=== PATIENT | female | born 1985 | race Caucasian/White ===

== ENCOUNTER 2019-12-05 09:05 | Observation (INO) | payer OTHER, SELFPAY ==
[2019-12-05] MEDS ORDERED: Morphine 4 MG/ML VIAL ONE ×2 (09:33→11:09)
[2019-12-05] MEDS ORDERED: Labetalol HCl 100 MG/20 ML VIAL ONE (09:33)
[2019-12-05] MEDS ORDERED: Ondansetron PF 4 MG/2 ML Vial ONE (09:33)
[2019-12-05 09:50] LABS: #Eosinphils 0.1 thou/uL (0.0-0.7); #Lymphocytes 1.7 thou/uL (1.20-3.40); #Monocytes 0.5 thou/uL (0.11-0.59); #Neutrophils 5.4 thou/uL (1.40-6.50); %Basophils 0.4 % (0.0-1.0); %Eosinophils 0.8 % (0.0-10.0); %Lymphocytes 22.3 % (21.0-51.0); %Monocytes 6.9 % (0.0-10.0); %Neutrophils 69.5 % (42.0-75.0); Hemoglobin 16.9 g/dL (12.0-16.0); Mean Corpuscular HGB CONC 33.4 g/dL (32.0-36.0); Mean Corpuscular Volume 89.9 fL (78.0-98.0); Platelet Count 170 thou/uL (130-400); RBC Distribution Width 13.2 % (11.5-14.5); Red Blood Cell (RBC) Count 5.62 mill/uL (4.20-5.40); White Blood Cell (WBC) Count 7.7 thou/uL (4.8-10.8)
[2019-12-05 10:07] LABS: ALT (SGPT) 23 U/L (8-55); AST (SGOT) 17 U/L (5-34); Albumin 4.2 g/dL (3.5-5.0); Alkaline Phosphatase 77 U/L (40-110); Anion Gap 13 mmol/L (10-20); BUN (Urea Nitrogen) 21 mg/dL (7.0-18.7); Bilirubin, Total 0.5 mg/dL (0.2-1.2); Calc. Creatinine Clearance 0 mL/min (70-130); Calcium 9.4 mg/dL (7.8-10.44); Carbon Dioxide 26 mmol/L (22-29); Chloride 99 mmol/L (98-107); Estimated GFR-MDRD 41; Globulin 3.9 g/dL (2.4-3.5); Glucose 144 mg/dL (70-105); Lipase 21 U/L (8-78); Protein, Total 8.1 g/dL (6.0-8.3); Sodium 135 mmol/L (136-145)
--- NOTE | 2019-12-05 10:12 | RAD ---
PORTABLE CHEST: Date: 12/05/2019 HISTORY: Epigastric pain. FINDINGS: Lung franco are clear. No infiltrate. Heart and mediastinum appear normal. IMPRESSION: No acute findings. POS: OFF
[2019-12-05 10:28] LABS: CKMB 1.8 ng/mL (0-6.6)
[2019-12-05 10:47] LABS: BHCG - Serum Negative (NEGATIVE); Pregs Control Background? CLEAR/WHITE (CLR/WHITE); Pregs Control Bar Appear? YES (CONTROL BAR)
[2019-12-05] MEDS ORDERED: Aspirin Chewable 81 MG TAB ONE (10:50)
--- NOTE | 2019-12-05 10:54 | CT ---
CT ABDOMEN AND PELVIS WITH IV CONTRAST 12/05/2019 CLINICAL INFORMATION: Upper abdominal pain. Pain is worse in the epigastric region left upper quadrant. COMPARISON: None. Technique: Multiple contiguous axial CT images are obtained through the abdomen and pelvis with IV contrast. Cor onal reformatted images are provided. FINDINGS: Lower Chest: Dependent bibasilar atelectasis. Vessels: Minimal eccentric atherosclerotic plaque is seen in the abdominal aorta with minimal vascula r calcifications in the infrarenal abdominal aorta. Abdominal aorta is normal in caliber. Abdomen: Portal vein:Patent Gallbladder: Within normal limits for CT imaging. Liver: within normal limits. Spleen: within normal limits. Pancreas: within normal limits. Adrenals: within normal limits. Kidneys: There is scarring associated with the kidneys bilaterally. A nonobstructing approximately 5 mm calculus is seen in the inferior pole right kidney with a nonobstructing 4 mm calculus in the superior pole left kidney. These calculi are adjacent to areas of scarring. Bowel: Evidence of colonic diverticulosis. Loops of small bowel are normal in caliber. Appendix: The appendix is visualized and normal in caliber. Peritoneum: No ascites or free air; no fluid collection. Mesentery and Retroperitoneum: No enlarged lymph nodes are seen by CT size criteria. Nonspecific slig ht increase in very small lymph nodes are seen in the aortocaval region. Abdominal Wall: within normal limits. Pelvis: Reproductive Organs: No pelvic masses. Bladder: within normal limits. Bones: No suspicious lytic or sclerotic osseous lesions. IMPRESSION: 1. No acute findings in the abdomen or pelvis. 2. Multifocal areas of scarring involving each kidney with single nonobstructing calculus in each kid kaci. 2. Colonic diverticulosis.
[2019-12-05 11:48] LABS: Bilirubin Negative (Negative); Blood, Urine Trace (Negative); Clarity Clear (Clear); Glucose, Urine (Dipstick) 70 mg/dL (Negative); Ketone, Urine Negative (Negative); Leukocyte 250 Leu/uL (Negative); Nitrite Negative (Negative); Protein, Urine (Dipstick) 300 mg/dL (Neg-Trace); Specific Gravity, Urine 1.043 (1.002-1.036); Urobilinogen Normal mg/dL (Less than 2); WBC/HPF 21-50 HPF (0-3)
[2019-12-05 11:52] LABS: Bacteria/HPF 1+ HPF (None Seen)
[2019-12-05 12:03] LABS: Magnesium 2.3 mg/dL (1.6-2.6)
[2019-12-05] MEDS ORDERED: Nitroglycerin 0.4 MG TAB (25 Tab Bottle) SL PRN (12:12)
[2019-12-05] MEDS ORDERED: Potassium Phosphate 15 MMOL in Sodium Chloride 0.9% 250 ML 250 ML IVPB SCH (12:15)
[2019-12-05] MEDS ORDERED: Potassium Chloride 20 MEQ TAB ONE (12:18)
[2019-12-05] MEDS ORDERED: cefTRIAXone\\ROCEPHIN 1 GM VIAL ONE (12:18)
[2019-12-05 12:40] LABS: PTT 29.5 sec (22.9-36.1); Prothrombin Time 13.1 sec (12.0-14.7)
[2019-12-05 13:10] LABS: Amphetamine Not Detected (NotDetected); Barbiturates Screen Not Detected (NotDetected); Benzodiazepine Screen Detected (NotDetected); Cocaine Metabolite Screen Not Detected (NotDetected); Medtox Control Line Valid? VALID (VALID); Medtox Reader # READER 1; Methadone Not Detected (NotDetected); Methamphetamine Not Detected (NotDetected); Opiate Screen Detected (NotDetected); Oxycodone Screen Not Detected (NotDetected); Phencyclidine (PCP) Not Detected (NotDetected); THC/Cannabinoid Screen Not Detected (NotDetected); Tricyclic Screen Not Detected (NotDetected)
[2019-12-05] MEDS ORDERED: Ketorolac Tromethamine 30 MG/ML VIAL ONE (13:26)
[2019-12-05] MEDS ORDERED: Ondansetron ODT 4 MG TAB PO PRN (13:40)
--- NOTE | 2019-12-05 14:44 | PDOC.HHP ---
Hospitalist HPI - History of Present Illness abdominal pain History of Present Illness: PCP: Opal Guillaume The patient is a 34-year-old female past medical history significant for hypertension, which she is not compliant with her medications. She presents to the ER today after having abdominal pain for 4 days. She reports that she went to her clinic yesterday and received medication but the pain is worse today. In the beginning she felt she was constipated but now she complains of diarrhea. She has also had vomiting episodes with decreased appetite. Patient also feels that she had a fever as high as 101 at her house, however she never took her temperature. She states that the pain does make her feel short of breath. She has attempted Pepto, Tums, and Rolaids to help relieve the pain. She denies any chest pain, contact with sick persons. She does states she has some back pain in the middle area however this is not new for her and happens on and off. She is an every day smoker. Patient does state that she has significant history of hypertension but that she is not compliant with her home medications. Her states that every time she goes into the hospital she gets admitted due to her blood pressure. She states that she just does not have time in her day to remember to take the medications. ED Course: VITAL SIGNS SunDec 05, 2019 09:07 MANUELITO Davila Taylor BP: 224/158, Pulse: 92, Resp: 18, Temp: 97.8 (Oral), Pain: 8, O2 sat: 99 on (Room Air), Time: 12/05/2019 09:07. VITAL SIGNS SunDec 05, 2019 09:30 MANUELITO Rodriguez Kailey BP: 244/158, MAP: 186, Pulse: 91, Resp: 22, Pain: 8, O2 sat: 99 on (Room Air), Time: 12/05/2019 09:30. VITAL SIGNS SunDec 05, 2019 10:17 MANUELITO Rodriguez Kailey BP: 192/125, Pulse: 70, Resp: 22, Temp: 98.0 (Oral), Pain: 4, O2 sat: 93 on (Room Air), Time: 12/05/2019 10:17. VITAL SIGNS SunDec 05, 2019 09:58 MANUELITO Rodriguez Kailey BP: 192/128, MAP: 149, Pulse: 72, Resp: 23, Pain: 6, O2 sat: 95 on (Room Air), Time: 12/05/2019 09:58. VITAL SIGNS SunDec 05, 2019 10:39 MANUELITO Rodriguez Jacinta BP: 196/134, MAP: 154, Pulse: 72, Resp: 22, Pain: 5, O2 sat: 96 on (Room Air), Time: 12/05/2019 10:39. VITAL SIGNS SunDec 05, 2019 11:00 MANUELITO Rodriguez Jacinta BP: 177/115, Pulse: 62, Pain: 5, Time: 12/05/2019 11:00. VITAL SIGNS SunDec 05, 2019 13:31 MANUELITO Rodriguez Jacinta BP: 131/101, Pulse: 67, Resp: 18, Pain: 8, O2 sat: 98, Time: 12/05/2019 13:31. VITAL SIGNS SunDec 05, 2019 14:20 MANUELITO Rodriguez Jacinta BP: 167/111, MAP: 129, Pulse: 64, Resp: 20, Temp: 98.5 (Oral), Pain: 5, O2 sat: 98 on (Room Air), Time: 12/05/2019 14:20. VITAL SIGNS SunDec 05, 2019 15:01 MANUELITO Rodriguez Jacinta BP: 139/106, MAP: 117, Pulse: 67, Resp: 22, Pain: 5, O2 sat: 98 on (Room Air), Time: 12/05/2019 15:01. Today in the ER the patient had lab work, urinalysis, EKG, abdominal CT, and chest x-ray completed, results are listed below. She was given 1 L normal saline, Zofran 4 mg IV, 2 doses of morphine 4 mg IV, 2 doses of labetalol 20 mg IV, aspirin 324 mg, ceftriaxone 1 g, potassium 40 mEq oral, and Toradol 30 mg IV push. Hospitalist ROS - Review of Systems Gastrointestinal: reports: nausea, vomiting, abdominal pain, diarrhea, constipation All other systems reviewed; all pertinent +/- noted in HPI/Subj - Medication Medications: NKDA Current Medications: Lisinopril 10 mg daily Hospitalist History - Past Medical History Source: patient Cardiac: reports: HTN - Past Surgical History Past Surgical History: reports: - Family History Family History: reports: cardiac disorder, diabetes mellitus - Social History Smoking Status: Current every day smoker Alcohol: reports: None Drugs: reports: none Living Situation: With Family Activity level: independent ambulation - Exam General Appearance: awake alert General - other findings: appears in pain ENT: normocephalic atraumatic Neck: supple, symmetric Heart: RRR, no murmur, no gallops, no rubs, normal peripheral pulses Respiratory: CTAB, no wheezes, no rales, no ronchi, normal chest expansion Gastrointestinal: soft, no palpable masses, tender to palpation, voluntary guarding Extremities: no edema Psychiatric: A&O x 3 Hospitalist Results - Labs Result Diagrams: 12/05/19 09:36 12/05/19 09:36 Lab results: WBC 7.7 thou/uL (4.8-10.8) 12/05/19 09:36 Hgb 16.9 g/dL (12.0-16.0) H 12/05/19 09:36 Hct 50.5 % (36.0-47.0) H 12/05/19 09:36 MCV 89.9 fL (78.0-98.0) 12/05/19 09:36 Plt Count 170 thou/uL (130-400) 12/05/19 09:36 Neutrophils % 69.5 % (42.0-75.0) 12/05/19 09:36 Sodium 135 mmol/L (136-145) L 12/05/19 09:36 Potassium 3.0 mmol/L (3.5-5.1) L 12/05/19 09:36 Chloride 99 mmol/L (98-107) 12/05/19 09:36 Carbon Dioxide 26 mmol/L (22-29) 12/05/19 09:36 BUN 21 mg/dL (7.0-18.7) H 12/05/19 09:36 Creatinine 1.48 mg/dL (0.6-1.1) H 12/05/19 09:36 Glucose 144 mg/dL (70-105) H 12/05/19 09:36 Lactic Acid 1.0 mmol/L (0.5-2.2) 12/05/19 12:24 Calcium 9.4 mg/dL (7.8-10.44) 12/05/19 09:36 Total Bilirubin 0.5 mg/dL (0.2-1.2) 12/05/19 09:36 AST 17 U/L (5-34) 12/05/19 09:36 ALT 23 U/L (8-55) 12/05/19 09:36 Alkaline Phosphatase 77 U/L (40-110) 12/05/19 09:36 CK-MB (CK-2) 1.8 ng/mL (0-6.6) 12/05/19 09:36 Troponin I 0.043 ng/mL (< 0.028) H 12/05/19 12:24 Serum Total Protein 8.1 g/dL (6.0-8.3) 12/05/19 09:36 Albumin 4.2 g/dL (3.5-5.0) 12/05/19 09:36 Lipase 21 U/L (8-78) 12/05/19 09:36 Urine Ketones Negative mg/dL (Negative) 12/05/19 11:00 Urine Blood Trace (Negative) A 12/05/19 11:00 Urine Nitrite Negative (Negative) 12/05/19 11:00 Ur Leukocyte Esterase 250 Mannie/uL (Negative) A 12/05/19 11:00 Urine RBC 4-6 HPF (0-3) A 12/05/19 11:00 Urine WBC 21-50 HPF (0-3) A 12/05/19 11:00 Ur Squamous Epith Cells 11-20 HPF (0-3) A 12/05/19 11:00 Urine Bacteria 1+ HPF (None Seen) A 12/05/19 11:00 - EKG Interpretation EKG: SR 85bpm - Radiology Interpretation CT scan - abdomen Status: report reviewed by me Additional Comment: IMPRESSION: 1. No acute findings in the abdomen or pelvis. 2. Multifocal areas of scarring involving each kidney with single nonobstructing calculus in each kid kaci. 2. Colonic diverticulosis. Chest x-ray Status: report reviewed by me Additional Comment: FINDINGS: Lung franco are clear. No infiltrate. Heart and mediastinum appear normal. IMPRESSION: No acute findings. Hospitalist H&P A/P - Plan Plan: Epigastric pain Bentyl to be started IV PPI ordered scheduled GI consult in place Repeat UA ordered Clear liquid diet Antiemetics as needed available Hypertensive emergency Restart patient on her home medications P.r.n. antihypertensives available Nitro patch scheduled Elevated troponin Patient mid to the telemetry unit to monitor No complaints of chest pain Unknown baseline of troponins, is a possibility that this is her baseline with her chronic kidney disease Chronic kidney disease Recheck labs in a.m. Receiving IV fluids Hypokalemia Replacement ordered We will recheck labs in a.m. CODE STATUS: Full Surrogate decision maker is her Jeremy Patient reviewed and discussed with Dr. Grimm
[2019-12-05] MEDS ORDERED: Iopamidol-370 76% 500 ML 1 ML ONE (15:24)
[2019-12-05 15:56] LABS: Troponin I 0.037 ng/mL (< 0.028)
[2019-12-05 16:36] VITALS: BMI 35.6
[2019-12-05] MEDS: Ondansetron PF 4 MG/2 ML Vial IVP PRN (17:00)
[2019-12-05] MEDS: Dicyclomine 10 MG CAP PO SCH ×2 (17:02→21:06)
[2019-12-05] MEDS: cloNIDine 0.1 MG TAB PO PRN (17:02)
[2019-12-05] MEDS: diphenhydrAMINE 50 MG/ML VIAL IVP PRN ×2 (17:10→21:09)
[2019-12-05] MEDS: Nitroglycerin 2% Ointment 1 INCH/1 GM Packet TOP SCH ×2 (17:23→21:11)
[2019-12-05] MEDS: NS 0.9% w/ 20 MEQ KCL 1,000 ML/1,000 ML BAG IV SCH ×2 (19:00→23:42)
[2019-12-05] MEDS: Pantoprazole 40 MG VIAL IVP SCH (21:06)
[2019-12-05] MEDS: Acetaminophen 325 MG TAB PO PRN (21:06)
--- NOTE | 2019-12-06 00:54 | CON ---
DATE OF CONSULTATION: 12/05/2019 CHIEF COMPLAINT: Abdominal pain. HISTORY OF PRESENT ILLNESS: Ms. White is a 34-year-old woman who presents to the emergency room with left upper quadrant, burning, aching pain that extends over to her epigastric region. This started 4 days ago, but has worsened over the last couple of days and significantly worsens immediately after eating. She has tried Tums, Rolaids and Pepto-Bismol without significant improvement in her symptoms. She has had episodes of nausea and vomiting with this. No hematemesis. She had 2 days of constipation when the symptoms started and then a couple of days of diarrhea with 2 or 3 loose stools per day. No blood in the stool. No melena. Her weight has been stable. No fever. She has had no dysphagia or odynophagia. She does have a history of hypertension, but does not take her medicines regularly for that. She has had headaches associated with her elevated blood pressure and takes ibuprofen intermittently 800 mg at a time, maybe around a couple of times per week. PAST MEDICAL HISTORY: Hypertension. PAST SURGICAL HISTORY: and tubal ligation. FAMILY HISTORY: Positive for possibly stomach cancer in her grandmother. SOCIAL HISTORY: She smokes half pack a day. No alcohol. No drugs. ALLERGIES: NO KNOWN DRUG ALLERGIES. MEDICATIONS: Prior to admission: Lisinopril, which she has not been perfectly compliant with. Here in the hospital, she is on: 1. Pantoprazole IV q.12 hours. 2. Lisinopril. 3. Nitroglycerin ointment. REVIEW OF SYSTEMS: Negative x10 systems reviewed except as stated in the history of present illness. PHYSICAL EXAMINATION: VITAL SIGNS: Temperature 98.5, pulse 77, blood pressure 159/117. GENERAL: She is in no acute distress. Alert and oriented x3. EYES: Have no scleral icterus. Oropharynx is clear without lesions. No cervical or supraclavicular lymphadenopathy. LUNGS: Clear to auscultation bilaterally. HEART: Regular rate and rhythm without murmur. ABDOMEN: Soft. She has mild tenderness in the epigastric to left upper quadrant, but no guarding, and she is nontender throughout the rest of her abdomen. Her bowel sounds are active. EXTREMITIES: No lower extremity edema. NEUROLOGIC: Cranial nerves are grossly intact. LABORATORY DATA: White blood cell count 7.7, hemoglobin 16.9, platelets 170. INR 1.0. Creatinine 1.48, bilirubin 0.5, AST 17, ALT 23, alkaline phosphatase 77, albumin 4.2, lipase 21. COVID test is pending. IMAGING: She did have a CT scan of the abdomen and pelvis this morning, which showed nonobstructing renal calculi and colonic diverticulosis, but otherwise the CT was negative. On my review of her CT scan, she does not have significant retention of stool in her colon. IMPRESSION: Left upper quadrant epigastric abdominal pain. She has occasional non-steroidal anti-inflammatory drugs use a couple times per week 800 mg per dose. She takes this primarily for headaches and has had limited compliance with her antihypertensive medications. RECOMMENDATIONS: 1. Proton pump inhibitor. 2. EGD tomorrow. Job ID: [id number]
[2019-12-06 05:08] LABS: #Basophils 0.1 thou/uL (0.0-0.2); #Eosinphils 0.1 thou/uL (0.0-0.7); #Lymphocytes 3.4 thou/uL (1.20-3.40); #Monocytes 0.8 thou/uL (0.11-0.59); #Neutrophils 6.5 thou/uL (1.40-6.50); %Basophils 0.6 % (0.0-1.0); %Eosinophils 1.3 % (0.0-10.0); %Lymphocytes 31.2 % (21.0-51.0); %Monocytes 7.6 % (0.0-10.0); %Neutrophils 59.3 % (42.0-75.0); Hemoglobin 13.8 g/dL (12.0-16.0); Mean Corpuscular HGB CONC 34.5 g/dL (32.0-36.0); Mean Corpuscular Hemoglobin 31.2 pg (27.0-31.0); Mean Corpuscular Volume 90.4 fL (78.0-98.0); Mean Platelet Volume 9.5 fL (7.4-10.4); Platelet Count 150 thou/uL (130-400); RBC Distribution Width 13.2 % (11.5-14.5); Red Blood Cell (RBC) Count 4.41 mill/uL (4.20-5.40)
[2019-12-06 05:23] LABS: Anion Gap 12 mmol/L (10-20); BUN (Urea Nitrogen) 21 mg/dL (7.0-18.7); Calc. Creatinine Clearance 92 mL/min (70-130); Calcium 8.2 mg/dL (7.8-10.44); Carbon Dioxide 21 mmol/L (22-29); Chloride 105 mmol/L (98-107); Estimated GFR-MDRD 43; Glucose 125 mg/dL (70-105); Potassium 3.3 mmol/L (3.5-5.1); Sodium 135 mmol/L (136-145)
[2019-12-06] MEDS: cloNIDine 0.1 MG TAB PO PRN (05:49)
[2019-12-06] MEDS: Acetaminophen 325 MG TAB PO PRN (05:50)
[2019-12-06] MEDS: Nitroglycerin 2% Ointment 1 INCH/1 GM Packet TOP SCH ×3 (05:50→21:29)
[2019-12-06] MEDS ORDERED: hydrALAZINE 20 MG/ML VIAL SLOW IVP PRN (06:07)
[2019-12-06] MEDS: NS 0.9% w/ 20 MEQ KCL 1,000 ML/1,000 ML BAG IV SCH ×3 (06:17→21:37)
[2019-12-06] MEDS ORDERED: FLU VACC QS2020-21(6MOS UP)/PF 60 MCG/0.5 ML SYRINGE IM ONE (09:00)
[2019-12-06] MEDS ORDERED: Prevnar 13-Val Conj/PF 0.5 ML SYRINGE IM ONE (09:00)
[2019-12-06] MEDS: Lisinopril 20 MG TAB PO SCH (09:14)
[2019-12-06] MEDS: Dicyclomine 10 MG CAP PO SCH ×4 (09:14→21:30)
[2019-12-06] MEDS: Pantoprazole 40 MG VIAL IVP SCH ×2 (09:14→21:37)
[2019-12-06] MEDS ORDERED: Lidocaine 1% PF 5 ML VIAL ONE (09:28)
[2019-12-06] MEDS ORDERED: PROPOFOL 200 MG/20 ML VIAL ONE (09:28)
[2019-12-06] MEDS ORDERED: Morphine 2 MG/ML SYRINGE SLOW IVP PRN (09:53)
[2019-12-06] MEDS: Morphine 2 MG/ML VIAL SLOW IVP PRN ×3 (10:10→21:58)
[2019-12-06 12:02] LABS: SARS-CoV-2 MS2 Positive; SARS-CoV-2 N Gene Negative; SARS-CoV-2 S Gene Negative; SARS-CoV-2 by NAA Not Detected (NotDetected); SARS-CoV-2 orf1ab Negative
[2019-12-06] MEDS ORDERED: Morphine 2 MG/ML VIAL ONE (14:06)
[2019-12-06] MEDS ORDERED: Ondansetron HCl/PF 4 MG/2 ML Vial IVP PRN (14:56)
[2019-12-06] MEDS ORDERED: Promethazine HCl 25 MG/ML VIAL IM PRN (14:56)
[2019-12-06] MEDS ORDERED: Promethazine HCl 25 MG/ML VIAL SLOW IVP PRN (14:56)
[2019-12-06] MEDS ORDERED: Potassium Chloride 20 MEQ TAB PO SCH (18:15)
[2019-12-06] MEDS ORDERED: Electrolyte Replacement Protocol FS PRN (18:30)
[2019-12-06] MEDS ORDERED: Electrolyte Replacement Protoc 1 EACH EACH FS SCH (18:30)
--- NOTE | 2019-12-06 19:28 | OP ---
DATE OF PROCEDURE: 12/06/2019 PROCEDURE PERFORMED: Esophagogastroduodenoscopy with biopsy. PREOPERATIVE DIAGNOSIS: Left upper quadrant epigastric abdominal pain. DESCRIPTION OF PROCEDURE: Informed consent was obtained from the patient. She was sedated with total intravenous anesthesia. The bite block was placed and the endoscope advanced easily to the second portion of the duodenum and retroflexion was performed in the stomach. The esophagus was normal. The GE junction was normal. There is mild erythematous gastritis in the antrum. Biopsies were obtained to rule out Helicobacter pylori. The stomach was otherwise normal, including retroflexed views. The pylorus and first and second and third portions of the duodenum were normal. Duodenal biopsies were taken to rule out celiac disease. IMPRESSION: 1. Mild erythematous antral gastritis. Biopsies were obtained to rule out Helicobacter pylori. 2. Otherwise normal EGD. RECOMMENDATIONS: 1. Await histopathology. 2. Proton pump inhibitor. 3. Dicyclomine. 4. Advance diet. 5. No significant source for abdominal pain is identified by this exam. CT scan of the abdomen and pelvis yesterday was negative. Job ID: [id number]
--- NOTE | 2019-12-06 20:49 | PDOC.HOSPP ---
- Subjective Encounter Date: 12/06/19 Encounter Time: 09:00 Subjective: Patient was seen and examined in bed. She complains of ongoing epigastric pain No chest pain or shortness of breath Telemetry revealed normal sinus rhythm - Objective Vital Signs & Weight: Vital Signs (12 hours) Temp Pulse Resp BP Pulse Ox 12/06/19 15:36 98.6 F 73 20 142/82 H 100 12/06/19 11:33 98.2 F 71 16 147/78 H 99 Weight Weight 228 lb I&O: 12/05/19 12/06/19 12/07/19 06:59 06:59 06:59 Intake Total 1366 1001 Balance 1366 1001 Result Diagrams: 12/06/19 04:47 12/06/19 04:47 EKG Reviewed by me: Yes (Normal sinus rhythm on telemetry) Hospitalist ROS - Medication Medications: Active Medications Generic Name Dose Route Start Last Admin Trade Name Freq PRN Reason Stop Dose Admin Acetaminophen 650 mg 12/05/19 13:40 12/06/19 05:50 Acetaminophen 325 Mg Tab PO 650 mg Q4H PRN Administration Headache/Fever/Mild Pain (1-3) Clonidine 0.1 mg 12/05/19 11:54 12/06/19 05:49 Clonidine 0.1 Mg Tab PO 0.1 mg Q4H PRN Administration SBP Greater Than 180 Dicyclomine HCl 10 mg 12/05/19 17:00 12/06/19 16:21 Dicyclomine 10 Mg Cap PO 10 mg QID ERIC Administration Diphenhydramine HCl 25 mg 12/05/19 13:40 12/05/19 21:09 Diphenhydramine 50 Mg/Ml Vial IVP 25 mg Q4H PRN Administration Itching & Hives (mild) Hydralazine HCl 10 mg 12/06/19 06:07 12/06/19 06:19 Hydralazine 20 Mg/Ml Vial SLOW IVP 10 mg Q4H PRN Administration Hypertension Potassium Chloride/Sodium Chloride 1,000 ml in 1,000 mls @ 125 mls/hr 12/06/19 12:57 12/06/19 15:39 Ns 0.9% W/ 20 Meq Kcl IV 1,000 mls .Q8H ERIC Administration Lisinopril 20 mg 12/06/19 09:00 12/06/19 09:14 Lisinopril 20 Mg Tab PO 20 mg DAILY ERCI Administration Morphine Sulfate 2 mg 12/06/19 09:57 12/06/19 17:57 Morphine 2 Mg/Ml Vial SLOW IVP 2 mg Q4H PRN Administration Pain Nitroglycerin 0.5 inch 12/05/19 12:00 12/06/19 11:22 Nitroglycerin 2% Ointment 1 Inch/1 Gm Packet TOP Not Given 0400,1200,2000 [facility] Ondansetron HCl 4 mg 12/05/19 13:40 12/05/19 17:00 Ondansetron Pf 4 Mg/2 Ml Vial IVP 4 mg Q6H PRN Administration Nausea/Vomiting Pantoprazole Sodium 40 mg 12/05/19 21:00 12/06/19 09:14 Pantoprazole 40 Mg Vial IVP 40 mg Q12HR ERIC Administration Sodium Chloride 10 ml 12/06/19 09:00 12/06/19 09:14 Flush - Normal Saline 10 Ml Syringe IVF Not Given Q12HR ERIC - Exam General Appearance: awake alert General - other findings: In mild acute distress, complains of epigastric pain Heart: RRR, no murmur, no gallops Respiratory: no wheezes, no rales, no ronchi, normal chest expansion Gastrointestinal: soft, non-distended, normal bowel sounds, no palpable masses, tender to palpation (Epigastric region) Extremities: no cyanosis, no clubbing, no edema Hosp A/P - Plan 34-year-old female patient With a history of hypertension admitted on account of epigastric pain radiating towards the left side. She had EGD today I have findings unable to explain her ongoing abdominal pain. Epigastric pain Etiology unclear No clear etiology from EGD today. Initial abdominal imaging also negative. We will continue on pain control overnight Given that pain is radiating to the left side sometimes this could be of renal origin Reassess in a.m. Hypertension Blood pressure controlled today On lisinopril We will add amlodipine Continue BP monitoring CKD Renal function stable Monitor BMP Hypokalemia Corrected Hypokalemia protocol. Nephrolithiasis with renal scarring noted on ultrasound scan Nephrology was consulted today Consider urology consult in a.m. VT prophylaxisSCD CODE STATUS full code
[2019-12-06] MEDS ORDERED: Amlodipine 5 MG TAB PO SCH (21:00)
[2019-12-06] MEDS: Ondansetron PF 4 MG/2 ML Vial IVP PRN (21:53)
[2019-12-07] MEDS: Morphine 2 MG/ML VIAL SLOW IVP PRN ×3 (01:54→10:16)
[2019-12-07] MEDS: Nitroglycerin 2% Ointment 1 INCH/1 GM Packet TOP SCH ×2 (04:36→13:06)
[2019-12-07] MEDS: Ondansetron PF 4 MG/2 ML Vial IVP PRN (05:16)
[2019-12-07] MEDS: NS 0.9% w/ 20 MEQ KCL 1,000 ML/1,000 ML BAG IV SCH (05:17)
[2019-12-07 06:11] LABS: #Eosinphils 0.1 thou/uL (0.0-0.7); #Lymphocytes 3.2 thou/uL (1.20-3.40); #Monocytes 0.8 thou/uL (0.11-0.59); #Neutrophils 6.1 thou/uL (1.40-6.50); %Basophils 0.2 % (0.0-1.0); %Eosinophils 0.9 % (0.0-10.0); %Lymphocytes 31.6 % (21.0-51.0); %Monocytes 7.5 % (0.0-10.0); %Neutrophils 59.7 % (42.0-75.0); Hemoglobin 12.1 g/dL (12.0-16.0); Mean Corpuscular HGB CONC 33.4 g/dL (32.0-36.0); Mean Corpuscular Hemoglobin 30.8 pg (27.0-31.0); Mean Corpuscular Volume 92.1 fL (78.0-98.0); Mean Platelet Volume 9.7 fL (7.4-10.4); Platelet Count 144 thou/uL (130-400); RBC Distribution Width 13.4 % (11.5-14.5); Red Blood Cell (RBC) Count 3.91 mill/uL (4.20-5.40); White Blood Cell (WBC) Count 10.2 thou/uL (4.8-10.8)
[2019-12-07 06:40] LABS: Anion Gap 11 mmol/L (10-20); BUN (Urea Nitrogen) 18 mg/dL (7.0-18.7); BUN/Creatinine Ratio 13.43; Calc. Creatinine Clearance 97 mL/min (70-130); Calcium 8.1 mg/dL (7.8-10.44); Carbon Dioxide 21 mmol/L (22-29); Chloride 108 mmol/L (98-107); Estimated GFR-MDRD 46; Glucose 93 mg/dL (70-105); Phosphorus 2.5 mg/dL (2.3-4.7); Potassium 4.6 mmol/L (3.5-5.1); Sodium 135 mmol/L (136-145)
--- NOTE | 2019-12-07 07:50 | CON ---
DATE OF CONSULTATION: CONSULTING PHYSICIAN: Bryson Bender MD REQUESTING PHYSICIAN: Dr. Grimm. REASON FOR CONSULTATION: Acute kidney injury and findings on CAT scan of the abdomen. IMPRESSION: 1. Acute kidney injury, query cause, possibly hemodynamically mediated in the context of compromise p.o. intake. 2. Cannot completely rule out that this is a baseline chronic kidney disease stage 3, given the CAT scan findings. 3. Nonobstructing bilateral renal calculi. 4. Multiple scars on the kidney, query the significance of the etiology of these, may be related to past infection. 5. Hypokalemia and hypophosphatemia. PLAN: 1. We will continue to monitor this patient's renal function. 2. Avoid potentially nephrotoxic agents. 3. Find out the degree of proteinuria in this patient by quantifying. 4. We will recheck the vitamin D level in this patient. 5. Replete potassium preferably with potassium .. 6. Further management to be dependent on the clinical course. HISTORY OF PRESENT ILLNESS: That of 34-year-old female patient who presented here with abdominal pain, incidentally found to have some elevated creatinine and a CAT scan of the abdomen and pelvis did reveal evidence of multiple scars on the kidney, query significance, with bilateral nonobstructing renal calculi. As a result of these findings, decision has been taken to involve Renal in the management of this case. PAST MEDICAL HISTORY: Significant for hypertension. MEDICATIONS: As documented on [employer]. ALLERGIES: NO KNOWN DRUG ALLERGIES. FAMILY HISTORY: Significant for sister according to her, has multiple kidney problems and is not on dialysis, but she could not exactly say what kind of kidney problems. SOCIAL HISTORY: Significant for tobacco use. Denies alcohol abuse. REVIEW OF SYSTEMS: As documented in the body of the history. All the other systems were reviewed and found not to be significantly related to present illness. LABORATORY INVESTIGATION: Showed unremarkable CBC. Chemistry showed a creatinine 1.48, BUN of 21 with potassium 3.0. PHYSICAL EXAMINATION: GENERAL: The patient was found not to be in any obvious distress. VITAL SIGNS: Noted with the following vital signs. Afebrile, temperature 98.2, pulse 71, respiratory rate of 16, O2 saturations 99% with a blood pressure 147/78. HEENT: Unremarkable. CARDIOVASCULAR SYSTEM: First and second heart sounds were heard. RESPIRATORY SYSTEM: Clear to auscultation. DIGESTIVE SYSTEM: Revealed mild epigastric tenderness, otherwise unremarkable with positive bowel sounds. EXTREMITIES: No peripheral edema. SKIN: No new gross rash. LYMPHATICS: No peripheral lymphadenopathy. SUMMARY: A 34-year-old female patient who presented here with abdominal pain. Incidentally found to have bilateral nonobstructing renal calculi with multiple scars on the kidney and elevated creatinine of 1.4 putting her at stage 3 chronic kidney disease. Thank you for this consultation. We will follow with you. Job ID: [id number]
--- NOTE | 2019-12-07 09:02 | CT ---
CT Stone Protocol History: Continued flank pain Comparison: CT abdomen and pelvis 2 days prior Findings: Lung bases are clear. No pericardial effusion. 4 mm calculus right inferior renal collectin g system is similar. No hydroureteronephrosis. Nonobstructing 2 mm calculus superior pole left kidney is similar. This may be intraparenchymal calcifications. The adjacent scar. No ureteral calcul i. Mild diverticular disease. Left adnexal corpus luteum is present. No free intraperitoneal gas or flui d. Appendix is visualized and is normal. Impression: Unchanged bilateral small renal calculi which may be intraparenchymal given the adjacent overlying scar. No acute inflammatory process within the abdomen or pelvis.
[2019-12-07] MEDS: Dicyclomine 10 MG CAP PO SCH (10:13)
[2019-12-07] MEDS: Lisinopril 20 MG TAB PO SCH (10:13)
[2019-12-07] MEDS: Pantoprazole 40 MG VIAL IVP SCH (10:16)
--- NOTE | 2019-12-07 11:28 | PDOC.HOSPP ---
- Subjective Encounter Date: 12/07/19 Encounter Time: 11:26 Subjective: Ms. White was seen today in follow-up of left sided abdominal pain. She notes some improvement. She says it has a burning character, and sometimes radiates to her back. 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 - Objective Vital Signs & Weight: Vital Signs (12 hours) Temp Pulse Resp BP BP Pulse Ox 12/07/19 10:13 118/76 12/07/19 04:36 97.6 F 73 18 107/71 96 12/07/19 00:13 98.9 F 81 16 118/76 97 Weight Weight 228 lb I&O: 12/06/19 12/07/19 12/08/19 06:59 06:59 06:59 Intake Total 1366 3001 Balance 1366 3001 Result Diagrams: 12/07/19 05:43 12/07/19 05:43 Hospitalist ROS - Medication Medications: Active Medications Generic Name Dose Route Start Last Admin Trade Name Freq PRN Reason Stop Dose Admin Acetaminophen 650 mg 12/05/19 13:40 12/06/19 05:50 Acetaminophen 325 Mg Tab PO 650 mg Q4H PRN Administration Headache/Fever/Mild Pain (1-3) Amlodipine Besylate 5 mg 12/06/19 21:00 12/06/19 21:30 Amlodipine 5 Mg Tab PO 5 mg 2100 ERIC Administration Clonidine 0.1 mg 12/05/19 11:54 12/06/19 05:49 Clonidine 0.1 Mg Tab PO 0.1 mg Q4H PRN Administration SBP Greater Than 180 Dicyclomine HCl 10 mg 12/05/19 17:00 12/07/19 10:13 Dicyclomine 10 Mg Cap PO Not Given QID ERIC Diphenhydramine HCl 25 mg 12/05/19 13:40 12/05/19 21:09 Diphenhydramine 50 Mg/Ml Vial IVP 25 mg Q4H PRN Administration Itching & Hives (mild) Hydralazine HCl 10 mg 12/06/19 06:07 12/06/19 06:19 Hydralazine 20 Mg/Ml Vial SLOW IVP 10 mg Q4H PRN Administration Hypertension Potassium Chloride/Sodium Chloride 1,000 ml in 1,000 mls @ 125 mls/hr 12/06/19 12:57 12/07/19 05:17 Ns 0.9% W/ 20 Meq Kcl IV 1,000 mls .Q8H ERIC Administration Lisinopril 20 mg 12/06/19 09:00 12/07/19 10:13 Lisinopril 20 Mg Tab PO Not Given DAILY ERIC Morphine Sulfate 2 mg 12/06/19 09:57 12/07/19 10:16 Morphine 2 Mg/Ml Vial SLOW IVP 2 mg Q4H PRN Administration Pain Nitroglycerin 0.5 inch 12/05/19 12:00 12/07/19 04:36 Nitroglycerin 2% Ointment 1 Inch/1 Gm Packet TOP Not Given 0400,1200,2000 ERIC Ondansetron HCl 4 mg 12/05/19 13:40 12/07/19 05:16 Ondansetron Pf 4 Mg/2 Ml Vial IVP 4 mg Q6H PRN Administration Nausea/Vomiting Pantoprazole Sodium 40 mg 12/05/19 21:00 12/07/19 10:16 Pantoprazole 40 Mg Vial IVP 40 mg Q12HR ERIC Administration Sodium Chloride 10 ml 12/06/19 09:00 12/07/19 10:17 Flush - Normal Saline 10 Ml Syringe IVF 10 ml Q12HR ERIC Administration - Exam Eye: PERRL, anicteric sclera Heart: RRR, no murmur, no gallops, no rubs, normal peripheral pulses Respiratory: CTAB (with the exception of an occasional wheeze) Gastrointestinal: soft, non-tender, non-distended, normal bowel sounds, no palpable masses Extremities: no cyanosis, no edema Hosp A/P (1) Thoracic radiculopathy Code(s): M54.14 - RADICULOPATHY, THORACIC REGION Status: Acute (2) Obesity (BMI 35.0-39.9 without comorbidity) Code(s): E66.9 - OBESITY, UNSPECIFIED Status: Acute (3) Nephrolithiasis Status: Chronic - Plan * Left sided abdominal pain- I suspect a thoracic radiculopthy, based on the location and character of the pain. She has a histpry of heavy labor on her job- will give a trial of Gabapentin at night, and tramadol prn * Close outpatient follow-up * Recommend Counseling on a healthy diet- this can be done outpatient * Stable for discharge home
[2019-12-07 11:29] VITALS: BP 125/85; TEMP 98.1
[2019-12-07 11:34] LABS: Hemoglobin A1c 4.9 % (4.0-6.0)
--- NOTE | 2019-12-07 12:59 | CON ---
DATE OF CONSULTATION: 12/07/2019 REASON FOR CONSULT: Bilateral renal lithiasis. No hydronephrosis. Abdominal pain. REFERRING PROVIDER: Dr. Perrin HISTORY OF PRESENT ILLNESS: Ms. White is a 34-year-old female, G2, P2, self-employed, presented to [facility] due to vague left upper quadrant abdominal discomfort. She states that this is usually worse with activity and improved with providing manual pressure to this region. She has undergone a CT of the abdomen and pelvis, seen by GI, Dr. oCoper and underwent EGD on December 05 demonstrating mild gastritis, otherwise unremarkable. She has also been seen by Nephrology, Dr. Massey due to chronic renal insufficiency. She was admitted with hypertensive crisis with blood pressure 224/158. She is followed by [facility]. She has tendency for noncompliance with medical therapy per medical record review. Relates the pain is rated 8/10 on the pain scale, currently she has a warm compress in her upper abdomen and states that with pain medication, this has improved. She denies history of pyelonephritis, gross hematuria, recurrent UTI. She is a smoker, has been for numerous years. Her blood pressure is better on admission. A urology consultation was obtained due to persistent abdominal discomfort, and CT demonstrating renal calculi. PAST MEDICAL HISTORY: 1. Hypertension, uncontrolled. 2. Medical noncompliance. 3. Gastritis recently diagnosed, status post EGD, chronic renal insufficiency. SURGICAL HISTORY: 1. C-sections. 2. Tubal ligation. 3. EGD on December 06, 2019, by Dr. Cooper demonstrating no pathology except mild gastritis. FAMILY HISTORY: Positive for stomach cancer in her grandmother. SOCIAL HISTORY: Smokes half a pack a day. No illicit drugs. No alcohol abuse. 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 ALLERGIES: NO KNOWN DRUG ALLERGIES. PREVIOUS MEDICATIONS: Lisinopril which she has been noncompliant. CURRENT MEDICATIONS: In-house is; 1. Norvasc. 2. Clonidine. 3. Bentyl. 4. Benadryl. 5. Apresoline. 6. Restoril. 7. Morphine. 8. Nitrostat. 9. Zofran. 10. Protonix. REVIEW OF SYSTEMS: 10-point review of systems as above, otherwise noncontributory. PHYSICAL EXAMINATION: VITAL SIGNS: Her vital signs are stable no fever GENERAL: The patient resting comfortably, appears to be in no acute distress. HEENT: Grossly unremarkable. HEART: Regular rate. LUNGS: Clear. ABDOMEN: Soft, there is no rigidity. No rebound. No CVA tenderness of concern. Subjective discomfort is in the left mid epigastric region. Per patient with manual pressure, this discomfort is improved. EXTREMITIES: No cyanosis, clubbing, or edema. NEUROLOGIC: No gross focal deficits. SKIN: Without any lesions or hematoma. PSYCHIATRIC: Appears to be appropriate and intact. EXTREMITIES: No cyanosis, clubbing, or edema. PERTINENT IMAGING AND LABS: White count 10, hemoglobin 12, platelet 144. She is COVID negative. Admitting creatinine is 1.4, this morning is 1.3. UA demonstrates 300 protein, 70 glucose, 4 to 6 rbc's, 250 leukocytes, 20 to 50 wbc's, 11 to 20 epithelials, contaminated specimen with 1+ bacteria, cx mix yolande Previous urine culture from April 11, demonstrates Klebsiella pansensitive except to Macrobid. 70 of glucose in her UA. DIAGNOSTIC STUDIES: CT of the abdomen and pelvis with IV contrast obtained on December 05, 2019, which I reviewed myself: Bilateral scarring of the kidneys with nonobstructing renal calculi, 5 mm in the right lower pole, 4 mm in the left upper pole. There is scarring adjacent to the kidney stone, colonic diverticulosis. Per my review, the right lower pole is associated with cortical scarring, appears papilla based. Left upper pole stone is punctate in nature, also associated with scarring with no evidence of hydronephrosis. CT of the abdomen and pelvis stone protocol obtained this morning 12/07/19 as urologic consultation was obtained per my request demonstrating stable findings, stable calculi with no new findings. No hydronephrosis. Stable cortical scarring. IMPRESSION AND PLAN: 1. Ms. White is a 34-year-old female with history of hypertension, admitted with uncontrolled hypertensive crisis. 2. Tobacco abuse. 3. Chronic renal insufficiency. 4. Proteinuria, glucosuria, microscopic hematuria with current urinalysis contaminated. Final culture pending. 5. Prior history of Klebsiella. Urine culture positive per patient. No prior history of pyelonephritis. UTI symptomatic. 6. CT demonstrating bilateral cortical scarring with associated tiny calculi not of clinical significance as there is no evidence of hydronephrosis. RECOMMENDATIONS: I would recommend patient to follow up with me as an outpatient for elective cystoscopy, outpt voiding cystourethrogram. She does demonstrate glucosuria, history of medical noncompliance, it would be prudent to workup for occult diabetes, i.e., check hemoglobin A1c in-house. I informed the patient that her presenting left epigastric upper abdominal discomfort is not of urologic origin. patient can be discharged from my perspective with outpatient urology referral and followup appointment in few weeks. patient informed. No further intervention is necessary. I do not recommend AWA inhibitor's due to pre-existing chronic renal insufficiency. will sign off, please call for any further questions or concerns Job ID: [id number] [facility]
--- NOTE | 2019-12-09 08:51 | DIS ---
DATE OF ADMISSION: 12/05/2019 DATE OF DISCHARGE: 12/07/2019 DISCHARGE DISPOSITION: Home. DISCHARGE DIAGNOSES: 1. Left-sided abdominal pain, probable thoracic radiculopathy. 2. Hypertension. 3. Nephrolithiasis. 4. Obesity. DISCHARGE MEDICATIONS: Include 1. Gabapentin 200 mg p.o. at bedtime. 2. Tramadol 50 mg 1 p.o. 3 times a day as needed for pain. 3. Amlodipine 5 mg p.o. daily. 4. Lisinopril 20 mg p.o. daily. IMAGING DONE DURING THE HOSPITAL STAY: The patient had a CT scan of the abdomen and pelvis in which there is evidence of two nonobstructing stones within the kidney. There were multifocal areas of scarring within each kidney and evidence of colonic diverticulosis. She had a repeat CT scan, which is essentially negative. Also had an upper endoscopy showing mild erythematous antral gastritis. Biopsies were taken to rule out Helicobacter. CODE STATUS: Full code. ALLERGIES: NO KNOWN DRUG ALLERGIES. HOSPITAL COURSE: Ms. White is a pleasant 34-year-old female, who presented to the emergency room with complaints of abdominal pain which was more on the left side. The initial concern was for a GI related condition and she was placed on IV Protonix and GI was consulted. She underwent upper endoscopy which was essentially negative. She was seen to have renal stones bilaterally, which were nonobstructive. There was no evidence of hydronephrosis. However, given her persistent pain, a Urology consult was obtained. A repeat CT scan was done which did not show any significant change in the previous, no evidence of significant migration of the stones, no evidence of obstruction. When asked about the characteristic of the pain further, she says it is kind of a bandlike area on the abdomen around the left side radiating toward the back and burning in character and essentially made worse with certain movements. 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 I will be adding Neurontin to her medication regimen as well as tramadol as needed. Due to her blood pressure elevation, amlodipine was added to her medication regimen and she is to follow up at the [facility] in 1 to 2 weeks. Job ID: [id number]
== END 2019-12-07 13:25 | disposition home or self-care (01) ==
LOC: ERS 09:05 → 2SE 11:53 → T4-B 12-06 19:58
PROVIDERS: ADMIT Internal Medicine; ATTEND Internal Medicine
PROC: 0DB98ZX Excision of Duodenum, Via Natural or Artificial Opening Endoscopic, Diagnostic (ICD-10-PCS; principal; 2019-12-07)
PROC: 0DB68ZX Excision of Stomach, Via Natural or Artificial Opening Endoscopic, Diagnostic (ICD-10-PCS; 2019-12-07)
DX: K29.70 Gastritis, unspecified, without bleeding (principal); K57.30 Diverticulosis of large intestine without perforation or abscess without bleeding; I16.1 Hypertensive emergency; I12.9 Hypertensive chronic kidney disease with stage 1 through stage 4 chronic kidney disease, or unspecified chronic kidney disease; N18.30 Chronic kidney disease, stage 3 unspecified; N17.9 Acute kidney failure, unspecified; E87.6 Hypokalemia; N20.0 Calculus of kidney; E83.39 Other disorders of phosphorus metabolism; M54.14 Radiculopathy, thoracic region; E66.9 Obesity, unspecified; Z68.35 Body mass index [BMI] 35.0-35.9, adult; Z79.899 Other long term (current) drug therapy; Z87.891 Personal history of nicotine dependence; Z91.14 Patient's other noncompliance with medication regimen; Z20.828 Contact with and (suspected) exposure to other viral communicable diseases
CPT/HCPCS: 36415; 71045; 74176; 74177; 80048; 80053; 80069; 80306; 81003; 81015; 82306; 82553; 83036; 83605; 83690; 83735; 84100; 84484; 84703; 85025; 85610; 85730; 87086; 87635; 88305; 88312; 96365; 96375; 96376; C9113; G0378; J0360; J0696; J1200; J1885; J2270; J2405; J2704; J3480; J7050; Q9967; U0003

== ENCOUNTER 2020-02-20 11:19 | Inpatient (IN) | payer SELFPAY ==
--- NOTE | 2020-02-20 11:56 | RAD ---
XR Chest 1 View Portable HISTORY: Shortness of breath, weakness and headache COMPARISON: 12/05/2019 FINDINGS: The heart size is normal. The lungs are well expanded without focal areas of consolidation, pneumothorax or pleural effusions. IMPRESSION: No radiographic evidence of acute cardiopulmonary process.
[2020-02-20] MEDS ORDERED: diphenhydrAMINE 50 MG/ML VIAL ONE (12:14)
[2020-02-20] MEDS ORDERED: Metoclopramide 10 MG/10 ML UDCUP ONE (12:14)
[2020-02-20] MEDS ORDERED: Acetaminophen 500 MG TAB ONE (12:14)
[2020-02-20] MEDS ORDERED: Metoclopramide HCl 10 MG/2 ML VIAL ONE (12:15)
[2020-02-20 12:24] LABS: #Eosinphils 0.1 thou/uL (0.0-0.7); #Monocytes 0.5 thou/uL (0.11-0.59); #Neutrophils 8.7 thou/uL (1.40-6.50); %Eosinophils 0.6 % (0.0-10.0); %Lymphocytes 17.5 % (21.0-51.0); %Neutrophils 77.9 % (42.0-75.0); Hemoglobin 14.7 g/dL (12.0-16.0); Mean Corpuscular HGB CONC 33.8 g/dL (32.0-36.0); Mean Corpuscular Hemoglobin 30.1 pg (27.0-31.0); Mean Corpuscular Volume 88.9 fL (78.0-98.0); Mean Platelet Volume 8.9 fL (7.4-10.4); Platelet Count 215 thou/uL (130-400); White Blood Cell (WBC) Count 11.2 thou/uL (4.8-10.8)
[2020-02-20 12:37] LABS: BHCG - Serum Negative (NEGATIVE); Pregs Control Background? CLEAR/WHITE (CLR/WHITE); Pregs Control Bar Appear? YES (CONTROL BAR)
[2020-02-20 12:57] LABS: ALT (SGPT) 23 U/L (8-55); AST (SGOT) 22 U/L (5-34); Albumin 4.1 g/dL (3.5-5.0); Alkaline Phosphatase 63 U/L (40-110); Anion Gap 16 mmol/L (10-20); BUN (Urea Nitrogen) 14 mg/dL (7.0-18.7); Bilirubin, Total 0.4 mg/dL (0.2-1.2); Calc. Creatinine Clearance 0 mL/min (70-130); Calcium 9.6 mg/dL (7.8-10.44); Carbon Dioxide 24 mmol/L (22-29); Chloride 101 mmol/L (98-107); Globulin 3.7 g/dL (2.4-3.5); Glucose 112 mg/dL (70-105); Potassium 3.9 mmol/L (3.5-5.1); Protein, Total 7.8 g/dL (6.0-8.3); Sodium 137 mmol/L (136-145)
[2020-02-20] MEDS ORDERED: Magnesium 2 GM/50 ML BAG (IN WATER) ONE (13:38)
--- NOTE | 2020-02-20 13:51 | CT ---
CT BRAIN WITHOUT CONTRAST: 02/20/20 HISTORY: Headache. FINDINGS: There is a focal area of decreased attenuation in the right basal ganglia likely due to an age indete rminate infarction. No hemorrhage, midline shift, or abnormal extra-axial fluid collections seen. The ventricular size is normal and the basilar cisterns patent. The bony calvarium is intact. The visual ized paranasal sinuses and mastoid air cells are well aerated. There is a small focal area of low den sity in the left centrum semiovale likely old infarction. IMPRESSION: Age indeterminate right basal ganglia infarction. RECOMMENDATION: MRI with and without IV contrast should be performed. POS: LUZMA
[2020-02-20] MEDS ORDERED: Labetalol HCl 100 MG/20 ML VIAL ONE (14:03)
[2020-02-20] MEDS ORDERED: Aspirin 325 MG TAB ONE (14:03)
[2020-02-20] MEDS ORDERED: Labetalol HCl 100 MG/20 ML VIAL SLOW IVP PRN (14:39)
[2020-02-20] MEDS ORDERED: Acetaminophen 325 MG TAB PO PRN (14:44)
[2020-02-20] MEDS ORDERED: Ondansetron PF 4 MG/2 ML Vial IVP PRN (14:44)
[2020-02-20] MEDS ORDERED: Ondansetron ODT 4 MG TAB PO PRN (14:44)
[2020-02-20] MEDS ORDERED: Guaifenesin DM 100-10/5 ML UDCUP PO PRN (14:44)
--- NOTE | 2020-02-20 15:07 | PDOC.HHP ---
Hospitalist HPI - History of Present Illness Headache History of Present Illness: PCP: Opal HPI: The patient is a 34-year-old female with a past medical history significant for hypertension and anxiety that presents to the emergency department for above complaint. Patient reports the gradual onset of a posterior headache for approximately the past 3 days, described as "painful", exacerbated and relieved by nothing. Treated with OTC medications without relief. She reports associated nonproductive cough and mild shortness of breath. She reports diarrhea x1 episode. She denies any history of migraines, first/worst headache, neck stiffness, fever/chills or recent fall or trauma. She has no history of DVT/PE and is not on any hormone therapy replacement. Denies any change in vision, speech or focal motor deficit. Denies jaw claudication and , since she has had a tubal ligation. Denies ataxia or incontinence/retention urinary. Reports Covid exposure, to her sister who tested positive on 02/07. Her exposure was on 02/05. Denies abdominal pain, vomiting, hemoptysis, hem atochezia/melena. Denies dysuria or hematuria. Denies any chest pain, palpitations or lightheadedness. ED Course: Presented hypertensive with a BP 218/159, NL HR, RR, SPO2, afebrile. EKG normal sinus rhythm, no ST elevations. CXR consistent for Covid pneumonia negative for acute cardiopulmonary process. CT head positive age-indeterminate right basal ganglia infarct and an old infarct. Medication: Haldol, Reglan, Benadryl, mag sulfate, 1 L normal saline Tylenol Labetalol Full dose aspirin Hospitalist ROS - Review of Systems All other systems reviewed; all pertinent +/- noted in HPI/Subj - Medication Medications: 1. Lisinopril 20 mg p.o. daily 2. Klonopin 0.5 mg p.o. 3 times daily as needed anxiety. Allergies: No known drug allergies Hospitalist History - Past Medical History Source: patient Cardiac: reports: HTN Psych: reports: Anxiety - Past Surgical History Past Surgical History: reports: , Tubal Ligation - Family History Family History: reports: Other (SLE, sister positive). denies: cerebrovascular accident - Social History Smoking Status: Current every day smoker (1 pack/day, recently cut down to half pack per day) Alcohol: reports: None Drugs: reports: none Living Situation: With Family Occupation: Apartment management Activity level: independent ambulation - Exam General Appearance: NAD, awake alert. negative: ill appearing General - other findings: Appears uncomfortable Eye: PERRL, anicteric sclera ENT: normocephalic atraumatic, dry oral mucosa ENT - other findings: Negative Brudzinski sign Neck: supple, no lymphadenopathy Heart: RRR, no murmur, no gallops, no rubs, normal peripheral pulses Respiratory: CTAB, no wheezes, no rales, no ronchi, normal chest expansion, no tachypnea Gastrointestinal: soft, non-tender, normal bowel sounds, no guarding, no rigidity Extremities: no cyanosis, no edema Skin: no rashes Neurological: cranial nerve grossly intact, no focal deficits Musculoskeletal: normal tone, normal strength Psychiatric: normal affect, A&O x 3 Hospitalist Results - Labs Result Diagrams: 02/20/20 12:03 02/20/20 12:03 Lab results: WBC 11.2 thou/uL (4.8-10.8) H 02/20/20 12:03 Hgb 14.7 g/dL (12.0-16.0) 02/20/20 12:03 Hct 43.6 % (36.0-47.0) 02/20/20 12:03 MCV 88.9 fL (78.0-98.0) 02/20/20 12:03 Plt Count 215 thou/uL (130-400) 02/20/20 12:03 Neutrophils % 77.9 % (42.0-75.0) H 02/20/20 12:03 Sodium 137 mmol/L (136-145) 02/20/20 12:03 Potassium 3.9 mmol/L (3.5-5.1) 02/20/20 12:03 Chloride 101 mmol/L (98-107) 02/20/20 12:03 Carbon Dioxide 24 mmol/L (22-29) 02/20/20 12:03 BUN 14 mg/dL (7.0-18.7) 02/20/20 12:03 Creatinine 1.20 mg/dL (0.6-1.1) H 02/20/20 12:03 Glucose 112 mg/dL (70-105) H 02/20/20 12:03 Calcium 9.6 mg/dL (7.8-10.44) 02/20/20 12:03 Total Bilirubin 0.4 mg/dL (0.2-1.2) 02/20/20 12:03 AST 22 U/L (5-34) 02/20/20 12:03 ALT 23 U/L (8-55) 02/20/20 12:03 Alkaline Phosphatase 63 U/L (40-110) 02/20/20 12:03 Troponin I 0.011 ng/mL (< 0.028) 02/20/20 12:03 Serum Total Protein 7.8 g/dL (6.0-8.3) 02/20/20 12:03 Albumin 4.1 g/dL (3.5-5.0) 02/20/20 12:03 - EKG Interpretation EKG: Normal sinus rhythm - Radiology Interpretation CT scan - head Status: report reviewed by me Additional Comment: age-indeterminate right basal ganglia infarction Chest x-ray Status: report reviewed by me Additional Comment: No acute cardiopulmonary Hospitalist H&P A/P - Problem (1) Infarction of right basal ganglia Code(s): I63.9 - CEREBRAL INFARCTION, UNSPECIFIED Status: Acute (2) Hypertensive urgency Code(s): I16.0 - HYPERTENSIVE URGENCY Status: Acute (3) Headache Code(s): R51.9 - HEADACHE, UNSPECIFIED Status: Acute (4) Exposure to COVID-19 virus Code(s): Z20.822 - CONTACT WITH AND (SUSPECTED) EXPOSURE TO COVID-19 Status: Acute (5) CKD (chronic kidney disease), stage III Code(s): N18.30 - CHRONIC KIDNEY DISEASE, STAGE 3 UNSPECIFIED Status: Acute (6) HTN (hypertension) Code(s): I10 - ESSENTIAL (PRIMARY) HYPERTENSION Status: Chronic (7) Tobacco abuse Code(s): Z72.0 - TOBACCO USE Status: Chronic (8) Anxiety Code(s): F41.9 - ANXIETY DISORDER, UNSPECIFIED Status: Chronic - Plan Plan: 34/F with PMH hypertension and anxiety presents emergency department for posterior headache. Admit the patient to telemetry floor, inpatient status. Expected length of stay greater than 2 midnights. #Infarction of right basal ganglia Rule out CVA. MRI, carotid ultrasound, echocardiogram. Consult stroke team and neurology. Check TSH, FLP, mag, folate/B12, UA, UDS, HA1C. Check thrombosis panel and autoimmune panel. Permissive hypertension. Labetalol and hydralazine as needed. Neurochecks. Full dose aspirin and start high intensity statin. #Hypertensive urgency Presented BP 218/159. Given labetalol 10 mg IVP in ED. We will continue to monitor BP. Restart home dose lisinopril when reconciled by nursing. #Headache Likely related to problem #1 and 2. Received headache protocol in ED. Reports headache symptoms improve from 10/10 pain scale to 7/10 pain scale. We will add Fioricet as needed. #Exposure to COVID-19 virus Exposure 02/06/2020 sister. Sister tested + 02/08/2020. Covid test pending. Isolation precautions for now. Patient is not hypoxic. #CKD stage III Creatinine 1.20, appears baseline from recent studies. #HTN Poorly controlled. Takes lisinopril at home. Restart home dose lisinopril when appropriate #Tobacco abuse 1 pack/day greater than 10 years. Currently half pack per day. Counseled tobacco cessation. #Anxiety Denies SI/HI. Takes Klonopin 3 times daily as needed. Discussed avoiding this medication and lieu of stroke rule out. Lovenox for DVT prophylaxis. Pepcid for GI prophylaxis. CODE STATUS is full code. Discussed the case with attending physician, Dr. Perrin.
[2020-02-20 15:32] LABS: PTT 30.4 sec (22.9-36.1); Prothrombin Time 13.2 sec (12.0-14.7)
[2020-02-20 15:33] LABS: D-Dimer Test 0.58 *mcg/mL (0.27-0.43)
[2020-02-20 15:35] LABS: SARS-CoV-2 NAA Rapid Test Not Detected (NotDetected)
[2020-02-20] MEDS: hydrALAZINE 20 MG/ML VIAL SLOW IVP PRN (21:28)
[2020-02-20] MEDS: Atorvastatin Calcium 40 MG TAB PO SCH (21:28)
[2020-02-20] MEDS: Fioricet 325/50/40 mg Tablet PO PRN (21:28)
[2020-02-20] MEDS: Famotidine 20 MG TAB PO SCH (21:28)
[2020-02-20] MEDS: Famotidine/PF 20 mg/2ml Vial SLOW IVP SCH (22:24)
[2020-02-20] MEDS ORDERED: Lorazepam 1 MG TAB PO SCH (22:44)
[2020-02-20] MEDS: Sodium Chloride 0.9% 1,000 ML IV SCH (23:16)
[2020-02-20 23:22] LABS: Amphetamine Not Detected (NotDetected); Barbiturates Screen Not Detected (NotDetected); Benzodiazepine Screen Not Detected (NotDetected); Cocaine Metabolite Screen Not Detected (NotDetected); Medtox Control Line Valid? VALID (VALID); Medtox Reader # READER 4; Methadone Not Detected (NotDetected); Methamphetamine Not Detected (NotDetected); Opiate Screen Not Detected (NotDetected); Oxycodone Screen Not Detected (NotDetected); Phencyclidine (PCP) Not Detected (NotDetected); THC/Cannabinoid Screen Not Detected (NotDetected); Tricyclic Screen Not Detected (NotDetected)
[2020-02-21 02:06] VITALS: BMI 36.2
[2020-02-21 04:49] LABS: #Basophils 0.1 thou/uL (0.0-0.2); #Eosinphils 0.1 thou/uL (0.0-0.7); #Lymphocytes 2.8 thou/uL (1.20-3.40); #Monocytes 0.7 thou/uL (0.11-0.59); #Neutrophils 7.7 thou/uL (1.40-6.50); %Basophils 0.5 % (0.0-1.0); %Eosinophils 0.7 % (0.0-10.0); %Neutrophils 67.7 % (42.0-75.0); Hemoglobin 13.2 g/dL (12.0-16.0); Mean Corpuscular HGB CONC 32.1 g/dL (32.0-36.0); Mean Corpuscular Hemoglobin 28.6 pg (27.0-31.0); Mean Platelet Volume 10.2 fL (7.4-10.4); Platelet Count 176 thou/uL (130-400); RBC Distribution Width 13.3 % (11.5-14.5); Red Blood Cell (RBC) Count 4.63 mill/uL (4.20-5.40); White Blood Cell (WBC) Count 11.3 thou/uL (4.8-10.8)
[2020-02-21 04:54] LABS: Hemoglobin A1c 5.2 % (4.0-6.0)
[2020-02-21 05:10] LABS: Anion Gap 15 mmol/L (10-20); BUN (Urea Nitrogen) 10 mg/dL (7.0-18.7); Calc. Creatinine Clearance 141 mL/min (70-130); Calcium 8.5 mg/dL (7.8-10.44); Carbon Dioxide 21 mmol/L (22-29); Cardiac Risk 4.4 (Less than 4.5); Chloride 105 mmol/L (98-107); Cholesterol 136 mg/dl (< 200 Desired); Glucose 103 mg/dL (70-105); HDL Cholesterol 31 mg/dL (>60 Neg Risk); LDL Cholesterol, Calculated 67 mg/dL; Potassium 3.6 mmol/L (3.5-5.1); Sodium 137 mmol/L (136-145); Triglycerides 190 mg/dL (Less than 150)
[2020-02-21 05:29] LABS: Syphilis Antibody Nonreactive (Nonreactive)
[2020-02-21 05:32] LABS: Thyroid Stimulating Hormone 0.9146 uIU/mL (0.35-4.94)
--- NOTE | 2020-02-21 08:16 | PDOC.HOSPP ---
- Subjective Encounter Date: 02/21/20 Encounter Time: 08:45 Subjective: Patient seen and examined. Nurse reports that patient felt SOB last night. Denies hypoxia or chest pain. Patient feels that she was having anxiety attack. Says she felt better after ativan. Still endorses headache, however, today it is frontal, aching. Denies any changes in vision, speech or weakness to extremities. Discussed current orders and set expectation for the day. Patient had no further questions. - Objective Vital Signs & Weight: Vital Signs (12 hours) Temp Pulse Resp BP BP Pulse Ox 02/21/20 05:00 98.2 F 81 16 97 02/21/20 04:20 68 18 179/90 H 02/21/20 03:56 79 200/110 H 02/20/20 22:00 79 24 H 180/92 H 96 02/20/20 21:17 98.2 F 79 18 199/110 H 98 Weight Weight 231 lb 6 oz I&O: 02/20/20 02/21/20 02/22/20 06:59 06:59 06:59 Intake Total 690 Output Total 1350 Balance -660 Result Diagrams: 02/21/20 04:13 02/21/20 04:13 Hospitalist ROS - Review of Systems Constitutional: denies: fever, chills, weakness Eyes: reports: pain (frontal headache) ENT: denies: ear pain, ear discharge, nose discharge, nose congestion, throat pain Respiratory: denies: cough, shortness of breath, sputum, wheezing Cardiovascular: denies: chest pain, palpitations, edema, light headedness Gastrointestinal: denies: nausea, vomiting, abdominal pain, melena, hematochezia Neurological: denies: weakness, numbness, incoordination, change in speech, confusion All other systems reviewed; all pertinent +/- noted in HPI/Subj - Medication Medications: Active Medications Generic Name Dose Route Start Last Admin Trade Name Freq PRN Reason Stop Dose Admin Acetaminophen/Butalbital/Caffeine 1 tab 02/20/20 15:02 02/20/20 21:28 Fioricet 325/50/40 Mg Tablet PO 02/25/20 15:03 1 tab Q4H PRN Administration Headache Atorvastatin Calcium 40 mg 02/20/20 21:00 02/20/20 21:28 Atorvastatin Calcium 40 Mg Tab PO 40 mg HS ERIC Administration Famotidine 20 mg 02/20/20 21:00 02/20/20 22:24 Famotidine/Pf 20 Mg/2ml Vial SLOW IVP Not Given Q12HR ERIC Famotidine 20 mg 02/20/20 21:00 02/20/20 21:28 Famotidine 20 Mg Tab PO 20 mg BID ERIC Administration Hydralazine HCl 10 mg 02/20/20 14:39 02/20/20 21:28 Hydralazine 20 Mg/Ml Vial SLOW IVP 10 mg Q4H PRN Administration SBP > 180, DBP > 110 Sodium Chloride 1,000 mls @ 75 mls/hr 02/20/20 22:45 02/20/20 23:16 Normal Saline 0.9% IV 1,000 mls .[id number] ERIC Administration Labetalol HCl 20 mg 02/20/20 14:39 02/21/20 03:56 Labetalol Hcl 100 Mg/20 Ml Vial SLOW IVP 20 mg Q1H PRN Administration SBP > 180, DBP > 110 - Exam General Appearance: NAD, awake alert. negative: ill appearing Eye: anicteric sclera ENT: normocephalic atraumatic Heart: RRR, no murmur, no gallops, no rubs, normal peripheral pulses Respiratory: CTAB, no wheezes, no rales, no ronchi, normal chest expansion, no tachypnea Gastrointestinal: soft, non-tender, normal bowel sounds, no guarding, no rigidity Extremities: no edema Skin: no rashes Neurological: cranial nerve grossly intact, no focal deficits Musculoskeletal: normal strength Psychiatric: normal affect, A&O x 3 Hosp A/P (1) Infarction of right basal ganglia Code(s): I63.9 - CEREBRAL INFARCTION, UNSPECIFIED Status: Acute (2) Hypertensive urgency Code(s): I16.0 - HYPERTENSIVE URGENCY Status: Acute (3) Headache Code(s): R51.9 - HEADACHE, UNSPECIFIED Status: Acute (4) Exposure to COVID-19 virus Code(s): Z20.822 - CONTACT WITH AND (SUSPECTED) EXPOSURE TO COVID-19 Status: A cute (5) CKD (chronic kidney disease), stage III Code(s): N18.30 - CHRONIC KIDNEY DISEASE, STAGE 3 UNSPECIFIED Status: Acute (6) HTN (hypertension) Code(s): I10 - ESSENTIAL (PRIMARY) HYPERTENSION Status: Chronic (7) Tobacco abuse Code(s): Z72.0 - TOBACCO USE Status: Chronic (8) Anxiety Code(s): F41.9 - ANXIETY DISORDER, UNSPECIFIED Status: Chronic - Plan 34/F with PMH hypertension and anxiety presents emergency department for posterior headache. Admit the patient to telemetry floor, inpatient status. Expected length of stay greater than 2 midnights. #Infarction of right basal ganglia Rule out CVA. Neuro recs appreciated MRI extensive white matter hyperintensities, compatible with MS. Discussed with Dr. Wong via telephone Given patient symptomatology, more likely Covid PNA/malignant HTN Repeat Covid swab ordered. carotid ultrasound, echocardiogram pending. Consulted stroke team and neurology. Permissive hypertension. Continue Labetalol and hydralazine prn Restarted home dose lisinopril and will add low dose CCB. Neurochecks. Continue ASA and statin. Thrombosis panel and autoimmune panel pending. #Hypertensive urgency BP 179/90 this am. Restart home dose lisinopril. Add low dose norvasc. labetalol and hydralazine prn. Continue to monitor BP. #Headache Fioricet as needed. BP control. #Exposure to COVID-19 virus Exposure 02/06/2020 sister. Sister tested + 02/08/2020. Covid test negative. Influenza negative. Isolation precautions for now. Patient is not hypoxic. #CKD stage III Chronic, stable. Creatinine improved to 0.94 #HTN Continue lisinopril, add low dose norvasc. #Tobacco abuse 1 pack/day greater than 10 years. Currently half pack per day. [employer] tobacco cessation. #Anxiety Denies SI/HI. Became anxious last night, resolved with ativan. Takes Klonopin 3 times daily as needed. Discussed MRI brain with patient, add ativan prn for MRI. Lovenox for DVT prophylaxis. Pepcid for GI prophylaxis. CODE STATUS is full code. Attending physician agrees with plan of care.
[2020-02-21] MEDS ORDERED: Magnevist 469MG/ML 20 ML VIAL ONE (08:34)
[2020-02-21] MEDS ORDERED: Enoxaparin Sodium 40 MG/0.4 ML SYRINGE SC SCH (09:00)
[2020-02-21] MEDS ORDERED: Lisinopril 20 MG TAB PO SCH (09:00)
[2020-02-21] MEDS ORDERED: Aspirin 325 mg Enteric Coated Tablet PO SCH (09:00)
[2020-02-21] MEDS ORDERED: Lisinopril 10 MG TAB PO SCH (09:00)
[2020-02-21] MEDS: Famotidine 20 MG TAB PO SCH ×2 (09:18→20:51)
[2020-02-21] MEDS: Famotidine/PF 20 mg/2ml Vial SLOW IVP SCH ×2 (09:19→21:40)
[2020-02-21] MEDS ORDERED: Lorazepam 2 MG/ML VIAL ONE (09:49)
--- NOTE | 2020-02-21 09:50 | CON ---
DATE OF CONSULTATION: 02/21/2020 CONSULTING PHYSICIAN: Hospitalist Service. IMPRESSION: 1. Headache, which could be related to COVID versus malignant hypertension. 2. CT scan of the brain suggests possible PRES. PLAN: 1. Get the blood pressure under control. 2. Retest for COVID. HISTORY OF PRESENT ILLNESS: Ms. White is a 34-year-old white female with a known history of hypertension. She was exposed to COVID about February 07. Her sister tested positive. She had developed severe headache around 3 days ago. There are some associated blurred vision and cognitive slowing. There are no focal deficits associated with it. She has had no nausea or vomiting. She has never had any stroke-like episodes in the past. She denies history of migraines. She denies any drug use. She does report that she has lost her sense of taste and smell for the last 3 days as well. She also has some shortness of breath. PAST MEDICAL HISTORY: Hypertension. ALLERGIES: NONE. SOCIAL HISTORY: Positive for tobacco. FAMILY HISTORY: Positive for hypertension. MEDICATIONS: List was reviewed. REVIEW OF SYSTEMS: Ten-system review of systems is otherwise negative. PHYSICAL EXAMINATION: GENERAL: She is somewhat overweight young woman, in no apparent distress. VITAL SIGNS: Blood pressures have been persistently high with systolics as high as 160. HEENT: Pupils are equal and reactive. Conjunctivae clear. Oropharynx clear. NECK: Supple. ABDOMEN: Soft and nontender. EXTREMITIES: No cyanosis or edema. NEUROLOGIC: She is alert and appropriate. Her speech is fluent and clear. Cranial nerves are intact. There were no motor deficits. There was no tremor or dysmetria. Sensation was intact. Toes were downgoing. IMAGING STUDIES: CT scan of the brain was reviewed and appears to show diffuse white matter increased signal suggesting bilateral subcortical edema. LABORATORY STUDIES: Reviewed and appear unremarkable including a drug screen. SUMMARY: A 34-year-old woman with a loss of sense of taste and smell, mild shortness of breath, and fairly significant headache, which were all fairly typical symptoms of COVID. Her blood pressure is in the malignantly elevated range. This could be a contributing factor as well. Her CT scan suggest a more diffuse process and I disagree that there is a focal difference on the right. I would address the symptoms and I suspect this will improve with treatment. Job ID: [id number]
[2020-02-21] MEDS ORDERED: Amlodipine 5 MG TAB PO SCH ×2 (11:00→19:45)
--- NOTE | 2020-02-21 11:21 | MRI ---
Exam: Brain MRI with and without contrast HISTORY: Evaluate for stroke. COVID status post is uncertain. COMPARISON: None FINDINGS: Gradient echo sequence: No hemorrhage Calvarium: Appropriate T1 marrow signal intensity Midline brain parenchyma: Unremarkable Cerebrum:There are extensive T2 and FLAIR white matter hyperintensities which are perpendicular to th e ventricular system, compatible with Enamorado's fingers. The majority of these hyperintense lesions do not restrict. There is a small focus of restricted diffusion involving the left radiata and centru m semiovale. There is no associated enhancement with this lesion or the other white matter lesions. There does appear to be a cavitary lesion due to remote insult in the mid right zapata radiata. Ventricles: No evidence of hydrocephalus. Sinuses and mastoid air cells: Adequate aeration Diffusion: As above. Central arterial flow voids are maintained. Postcontrast images: No pathologic enhancement of the brain parenchyma. IMPRESSION: 1. Extensive white matter hyperintensities, compatible with multiple sclerosis. There may be a small actively demyelinating plaque along the posterior left zapata radiata. Remaining lesions appear to be chronic.
[2020-02-21] MEDS: hydrALAZINE 20 MG/ML VIAL SLOW IVP PRN ×2 (11:22→16:54)
--- NOTE | 2020-02-21 12:45 | ULT ---
BILATERAL CAROTID DUPLEX ULTRASOUND: HISTORY: CVA TECHNIQUE: Grayscale, color-flow and spectral Doppler ultrasound imaging of the extracranial carotid artery syst ems and vertebral arteries was performed bilaterally. FINDINGS: No large amount of echogenic plaque is seen involving the common carotid or internal carotid arteries . The peak systolic velocity in the right ICA measures 73.5 cm/s. The peak systolic velocity in the ri ght CCA measures 74.4 cm/s. The peak systolic velocity in the left ICA measures 63.8 cm/s. The peak systolic velocity in the l eft CCA measures 72.9 cm/s. The right IC/CC ration is1.. The left IC/CC ratio is 0.9. Vertebral flow: antegrade, bilaterally. . IMPRESSION: No hemodynamically significant stenosis of either cervical carotid artery
[2020-02-21] MEDS: Sodium Chloride 0.9% 1,000 ML IV SCH (14:19)
[2020-02-21 14:53] LABS: SARS-CoV-2 NAA Rapid Test Not Detected (NotDetected)
[2020-02-21 16:29] LABS: ANA Symphony (Qualitative) Negative (Negative); ANA Symphony (Quantitative) 0.4 Ratio (< 0.7 Negative); dsDNA IgG Antibody 0.9 IU/mL (<10 Negative)
[2020-02-21] MEDS: ALPRAZolam 0.5 MG TAB PO PRN ×2 (16:54→23:47)
[2020-02-21 17:25] LABS: Cardiolipin IgA Ab 2.6 APL-U/mL (<14 Negative); Cardiolipin IgG Ab 1.3 GPL-U/mL (<10 Negative); Cardiolipin IgM Ab 6.4 MPL-U/mL (<10 Negative); EliA APS New Method **** NEW METHOD ****
[2020-02-21] MEDS: Fioricet 325/50/40 mg Tablet PO PRN (20:51)
[2020-02-21] MEDS: Atorvastatin Calcium 40 MG TAB PO SCH (20:51)
[2020-02-21] MEDS ORDERED: Nicotine 7 MG PATCH TD SCH (22:00)
[2020-02-22] MEDS: Sodium Chloride 0.9% 1,000 ML IV SCH (01:22)
[2020-02-22 05:03] VITALS: BP 139/79; TEMP 97.7
[2020-02-22] MEDS: ALPRAZolam 0.5 MG TAB PO PRN (05:47)
[2020-02-22] MEDS ORDERED: Amlodipine 5 MG TAB PO SCH (09:00)
[2020-02-22] MEDS ORDERED: Amlodipine 10 MG TAB PO SCH ×2 (09:00)
[2020-02-23 13:29] LABS: Protein C Activity 112 % (78-152)
[2020-02-24 15:47] LABS: Factor VIII Test 132.4 % ACTIVE (56-157)
--- NOTE | 2020-02-24 23:19 | PQF ---
CLINICAL DOCUMENTATION CLARIFICATION FORM: Dear : Slava Perrin Date / Time: 02/24/20 1846 Please exercise your independent, professional judgment in responding to the clarification form. Clinical indicators are provided on the bottom of this form for your review Please check appropriate box(es): [ X ] Acute Infarction of Right basal ganglion [ ] PRES [ ] Other diagnosis, please specify [ ] Unable to determine Physician Signature: Date/Time: For continuity of documentation, please document condition throughout progress notes and discharge summary. Thank You. To be completed by CDI/Coding staff for physician review: Present Clinical Indicators - Signs / Symptoms / Labs Results and Location in Medical Record [x] BP 200/128, Pulse 84, Resp 19, Temp 98.5 Vital signs [x] CT jorje: Age indetermine right basal ganglion infarction Imaging Dr Robles 02/19 [x] MRI brain: Extensive whit ematter hyperintensities, complatible with multiple sclerosis. There may be small actively demyelinating pplaque along posterior left corana radiata Imaging Dr Lin 02/20 [x] Reports the gradual onset of posterior headache for approximately 3 days H&P p1 02/19 Rajeev ENGINEERING AND DEVELOPMENT DIRECTOR-C [x] Infarction of right basal ganglion H&P p4 02/19 Rajeev ENGINEERING AND DEVELOPMENT DIRECTOR-C [x] HTN urgency H&P p4 02/19 Rajeev ENGINEERING AND DEVELOPMENT DIRECTOR-C [x] Headache, which could be related to Covid versus malignant HTN Consult 02/20 Dr Wong [x] Ct scan of the brain suggest possible PRES Consult 02/20 Dr Wong Present Risk Factors Results and Location in Medical Record [x] HTN H&P p1 02/19 Rajeev ENGINEERING AND DEVELOPMENT DIRECTOR-C [x] Smoker H&P p1 02/19 Rajeev ENGINEERING AND DEVELOPMENT DIRECTOR-C [x] CKD III H&P p4 02/19 Rajeev ENGINEERING AND DEVELOPMENT DIRECTOR-C Present Treatments Results and Location in Medical Record [x] IVF NS 1L APR 12 [x] Aspirin 325 mg APR 12 [x] Neuro checks H&P p4 02/19 Rajeev ENGINEERING AND DEVELOPMENT DIRECTOR-C [x] Neuro consult Consult Dr Wong [x] Labetalol 100mg IV APR 12 [x] Hydralazine 10mg IV APR 12 [x] Lovenox 40mg Subcu APR 12 [x] Amlodipine 5mg Oral APR 12 CDS/School Plant Consultant Signature: Carola Villanueva Phone #: [facility] [phone] Date/Time: 02/24/20 9653 This is a permanent part of the Medical Record [facility]
--- NOTE | 2020-02-24 23:19 | PQF ---
CLINICAL DOCUMENTATION CLARIFICATION FORM: Dear : Slava Perrin Date / Time: 02/24/20 8724 Please exercise your independent, professional judgment in responding to the clarification form. Clinical indicators are provided on the bottom of this form for your review COVID 19 Clarification and Manifestations: Please check appropriate box(es): A. COVID 19 virus diagnosis Validation: [ ] COVID-19 is ruled in (if so, please provide the evidence used to support this diagnosis) [ X] COVID-19 has been ruled out [ ] Other explanation of clinical findings [ ] Unable to determine B. COVID 19 virus with associated manifestations: (please check all that apply) [ ] Pneumonia [ ] Headache [ ] Other diagnosis, please specify: [ ] Unable to determine Physician Signature: Date/Time: For continuity of documentation, please document condition throughout progress notes and discharge summary. Thank You. To be completed by CDI/Coding staff for physician review: Present Clinical Indicators - Signs / Symptoms / Labs Results and Location in Medical Record [x] SARS-Cov 2 Rap: Not detected Serology 02/19-02/20 [x] WBC 11.2, Plt count 215, Neutrophils 77.9 Laboratory 02/19 [x] BP 200/128, Pulse 84, Resp 19, Temp 98.5 Vital signs [x] Chest X-ray Imaging: The lungs are well expanded without focal areas of consolidation, pneumothorax or pleura effusion Imaging Dr Robles 02/19 [x] Reports nonproductive cough and mild SOB H&P p1 02/19 Rajeev SIGNAL INTELLIGENCE/ELECTRONIC WARFARE-C [x] Reports Covid exposure to her sister who tested positive on 02/07. her exposure was on 02/05 H&P p1 02/19 Rajeev SIGNAL INTELLIGENCE/ELECTRONIC WARFARE-C [x] CXR consistent for Covid pneumonia H&P p1 02/19 Rajeev SIGNAL INTELLIGENCE/ELECTRONIC WARFARE-C [x] Headache, which could be related to Covid versus malignant HTN Consult p1 02/20 Dr Wong Present Risk Factors Results and Location in Medical Record [x] HTN H&P p1 02/19 Rajeev SIGNAL INTELLIGENCE/ELECTRONIC WARFARE-C [x] Smoker H&P p1 02/19 Rajeev SIGNAL INTELLIGENCE/ELECTRONIC WARFARE-C Present Treatments Results and Location in Medical Record [x] IVF NS 1L APR 12 [x] Robitussin 15 ml oral APR 12 [x] Isolation Order 02/19 CDS/Volleyball Assembler Signature: Carola Villanueva Phone #: [phone] Date/Time: 02/24/20 2003 This is a permanent part of the Medical Record [email or web address]
[2020-02-26 17:13] LABS: HEX PHOS LA Tube 1 41.3 SEC; HEX PHOS LA Tube 2 39.5 SEC; Hexagonal Phospholipid Neut 1.9 SEC (0-8.0)
--- NOTE | 2020-02-28 14:00 | EKG ---
Test Reason : Blood Pressure : / mmHG Vent. Rate : 078 BPM Atrial Rate : 078 BPM P-R Int : 136 ms QRS Dur : 080 ms QT Int : 432 ms P-R-T Axes : 068 018 111 degrees QTc Int : 492 ms Normal sinus rhythm Possible Left atrial enlargement Septal infarct , age undetermined Old T wave inversion I, aVL, compared to 12/05/2019 Confirmed by JASON ODONNELL DO ([id number]), photo editor YAJAIRA BURKS ([id number]) on 02/28/2020 2:00:10 PM Referred By: Confirmed By:JASON ODONNELL DO
== END 2020-02-22 07:25 | disposition left against medical advice (07) | DRG 66 ==
LOC: ERS 11:19 → 2NO 14:35
PROVIDERS: ADMIT Internal Medicine; ATTEND Internal Medicine
PROC: 8E0ZXY6 Isolation (ICD-10-PCS; principal; 2020-02-20)
DX: I63.9 Cerebral infarction, unspecified (principal); I16.0 Hypertensive urgency; Z20.822 Contact with and (suspected) exposure to COVID-19; F41.9 Anxiety disorder, unspecified; F17.210 Nicotine dependence, cigarettes, uncomplicated; N18.30 Chronic kidney disease, stage 3 unspecified; I12.9 Hypertensive chronic kidney disease with stage 1 through stage 4 chronic kidney disease, or unspecified chronic kidney disease; R51.9 Headache, unspecified; R29.700 NIHSS score 0; Z79.899 Other long term (current) drug therapy; Z98.51 Tubal ligation status
CPT/HCPCS: 0240U; 36415; 70450; 70553; 71045; 80048; 80053; 80061; 80306; 82607; 82746; 83036; 83090; 84443; 84484; 84703; 85025; 85240; 85300; 85303; 85305; 85307; 85379; 85598; 85610; 85730; 86038; 86147; 86225; 86780; 93005; 93306; 93880; 96365; 96366; 96367; 96375; A9579; J0360; J1200; J1630; J1650; J2060; J2765; J3475; J7030; U0002

== ENCOUNTER 2020-04-08 21:31 | Emergency (ER) | payer SELFPAY ==
[2020-04-08] MEDS ORDERED: Lidocaine 1% w/Epinephrine 1:100K 20 ML VIAL ONE (22:14)
== END 2020-04-08 22:55 | disposition home or self-care (01) ==
LOC: ERS 21:31
DX: L03.114 Cellulitis of left upper limb (principal); I10 Essential (primary) hypertension; F17.210 Nicotine dependence, cigarettes, uncomplicated; Z79.899 Other long term (current) drug therapy
CPT/HCPCS: 90471

== ENCOUNTER 2020-04-13 13:48 | Emergency (ER) | payer SELFPAY ==
[2020-04-13] MEDS ORDERED: Vancomycin 1 GM/200 ML BAG ONE (19:23)
[2020-04-13] MEDS ORDERED: TETANUS AND DIPHTHERIA TOX/PF 0.5 ML DISP.SYRIN ONE (19:23)
[2020-04-13] MEDS ORDERED: Cefepime 2 GM VIAL ONE (19:47)
[2020-04-13] MEDS ORDERED: Morphine 4 MG/ML VIAL ONE ×2 (19:47→21:32)
[2020-04-13] MEDS ORDERED: Piperacillin/Tazobactam 4.5 GM VIAL ONE (19:47)
[2020-04-14] MEDS ORDERED: Morphine 2 MG/ML VIAL ONE (00:05)
[2020-04-14] MEDS ORDERED: Scopolamine 1.5 mg/72 hour Patch ONE (06:32)
[2020-04-14] MEDS ORDERED: Famotidine/PF 20 mg/2ml Vial ONE (06:32)
[2020-04-14] MEDS ORDERED: Midazolam HCl 2 mg/2 ml Vial ONE (06:33)
[2020-04-14] MEDS ORDERED: Ondansetron PF 4 MG/2 ML Vial ONE (06:33)
[2020-04-14] MEDS ORDERED: Fentanyl 100 MCG/2 ML VIAL ONE ×2 (06:34→08:29)
[2020-04-14] MEDS ORDERED: Lidocaine 1% w/Epinephrine 1:100K 20 ML VIAL ONE ×2 (06:46→07:23)
[2020-04-14] MEDS ORDERED: Promethazine HCl 25 MG/ML VIAL ONE (08:29)
[2020-04-14] MEDS ORDERED: HYDROcodone/Acetaminophen 7.5/325 mg Tablet ONE (13:27)
== END 2020-04-13 14:41 | disposition left against medical advice (07) ==
LOC: ERS 13:48
DX: Z53.21 Procedure and treatment not carried out due to patient leaving prior to being seen by health care provider (principal)
CPT/HCPCS: 90714; J0692; J2250; J2270; J2405; J2543; J2550; J3010; J3370; S0028

== ENCOUNTER 2020-04-13 16:58 | Inpatient (IN) | payer SELFPAY ==
[2020-04-13 18:31] LABS: #Basophils 0.1 thou/uL (0.0-0.2); #Eosinphils 0.1 thou/uL (0.0-0.7); #Lymphocytes 3.3 thou/uL (1.20-3.40); #Monocytes 0.9 thou/uL (0.11-0.59); #Neutrophils 10.8 thou/uL (1.40-6.50); %Basophils 0.8 % (0.0-1.0); %Eosinophils 0.9 % (0.0-10.0); %Lymphocytes 21.3 % (21.0-51.0); %Monocytes 5.8 % (0.0-10.0); %Neutrophils 71.2 % (42.0-75.0); Mean Corpuscular HGB CONC 32.6 g/dL (32.0-36.0); Mean Corpuscular Volume 91.9 fL (78.0-98.0); Mean Platelet Volume 8.8 fL (7.4-10.4); Platelet Count 252 thou/uL (130-400); RBC Distribution Width 13.4 % (11.5-14.5); White Blood Cell (WBC) Count 15.2 thou/uL (4.8-10.8)
[2020-04-13 18:51] LABS: Anion Gap 18 mmol/L (10-20); BUN (Urea Nitrogen) 48 mg/dL (7.0-18.7); Calc. Creatinine Clearance 0 mL/min (70-130); Calcium 9.7 mg/dL (7.8-10.44); Carbon Dioxide 18 mmol/L (22-29); Chloride 105 mmol/L (98-107); Glucose 85 mg/dL (70-105); Potassium 4.7 mmol/L (3.5-5.1); Sodium 136 mmol/L (136-145)
[2020-04-13] MEDS ORDERED: VANCOMYCIN 2 GRAM/400 ML BAG 2 GM in Premix Bag 1 BAG IVPB SCH (19:30)
--- NOTE | 2020-04-13 19:35 | RAD ---
XR Hand Lt 3 View STANDARD HISTORY: Left hand pain. Splinter in the left palm since 4 days FINDINGS: No fracture or dislocation is identified. No radiopaque foreign body is identified.
[2020-04-13 21:22] LABS: BHCG - Serum Negative (NEGATIVE); Pregs Control Background? CLEAR/WHITE (CLR/WHITE); Pregs Control Bar Appear? YES (CONTROL BAR)
[2020-04-14] MEDS: Piperacillin/Tazobactam 4.5 GM in Sodium Chloride 0.9% 100 ML IVPB SCH ×2 (01:22→18:37)
[2020-04-14 03:10] LABS: SARS-CoV-2 PCR by NAA Not Detected (NotDetected)
[2020-04-14] MEDS ORDERED: Ondansetron PF 4 MG/2 ML Vial IM ONE (03:24)
[2020-04-14] MEDS ORDERED: Ondansetron ODT 4 MG TAB PO PRN (03:40)
[2020-04-14] MEDS ORDERED: Ondansetron PF 4 MG/2 ML Vial IM SCH (03:45)
[2020-04-14] MEDS ORDERED: Ondansetron PF 4 MG/2 ML Vial IVP SCH (04:00)
[2020-04-14] MEDS ORDERED: Ondansetron PF 4 MG/2 ML Vial ONE ×2 (04:03→09:38)
[2020-04-14 04:42] VITALS: BMI 31.3
[2020-04-14 04:59] LABS: #Eosinphils 0.1 thou/uL (0.0-0.7); #Lymphocytes 2.9 thou/uL (1.20-3.40); #Monocytes 0.8 thou/uL (0.11-0.59); #Neutrophils 7.3 thou/uL (1.40-6.50); %Basophils 0.4 % (0.0-1.0); %Lymphocytes 26.1 % (21.0-51.0); %Monocytes 7.2 % (0.0-10.0); %Neutrophils 65.3 % (42.0-75.0); Hemoglobin 13.7 g/dL (12.0-16.0); Mean Corpuscular Hemoglobin 29.5 pg (27.0-31.0); Mean Corpuscular Volume 92.2 fL (78.0-98.0); Mean Platelet Volume 8.5 fL (7.4-10.4); Platelet Count 245 thou/uL (130-400); RBC Distribution Width 13.4 % (11.5-14.5); Red Blood Cell (RBC) Count 4.63 mill/uL (4.20-5.40); White Blood Cell (WBC) Count 11.2 thou/uL (4.8-10.8)
--- NOTE | 2020-04-14 04:59 | PDOC.HHP ---
Hospitalist HPI Left hand pain History of Present Illness: This is a 34-year-old female patient With a history of multiple sclerosis, hypertension and stroke who presents with left hand swelling and pain for about 5 days now. 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 Patient presented and attempts to remove splinter was unsuccessful. She was told this would spontaneously resolve however pain has progressively worsened with swelling of her hands. She presents today for further management. She did receive antibiotics but did not pick them up until today when she came in for her earlier visit. She denied any fevers, headache chest pain shortness of breath. At presentation her blood pressure was 123/79, pulse 62, respirate 17, temp erature 97.6 and saturating 100% on room air. Labs showed WBC of 15.2, no bands. Chemistry showed bicarb 18 and creatinine 2.15 from a baseline between 1 and 1.4. Covid serology test was negative. Patient was x-ray of her hand showed no fractures no foreign body present. She was started on antibiotics with cefepime vancomycin and Zosyn. Hand surgeon was consulted who said he would evaluate in the a.m. Hospitalist team was consulted to admit Allergies/Adverse Reactions: Allergy/AdvReac Type Severity Reaction Status Date / Time No Known Drug Allergies Allergy Verified 02/20/20 19:44 Home Medications: Medication Instructions Recorded Confirmed Type Lisinopril 10 mg PO DAILY 12/05/19 02/20/20 History Past History: Past medical history:multiple sclerosis, hypertension and stroke Past surgical history: Bilateral tubal ligation, section, Family history: None of significance. Social history: Denies alcohol use. Denies drug use. Currently a daily tobacco user. Hospitalist HPI ROS Constitutional: denies: fever, chills, sweats, weakness, malaise Respiratory: denies: cough, shortness of breath, hemoptysis, SOB with excertion Gastrointestinal: denies: nausea, vomiting, abdominal pain, diarrhea Genitourinary: denies: dysuria, frequency, incontinence Musculoskeletal: reports: hand pain. denies: neck pain, shoulder pain Skin: denies: rash, lesions Neurological: denies: weakness, numbness, incoordination, change in speech All other systems reviewed; all pertinent +/- noted in HPI/Subj Hospitalist Exam Vitals: Weight Weight 200 lb 0.054 oz General Appearance: awake alert General - other findings: In no acute distress Eye: PERRL, anicteric sclera ENT: normocephalic atraumatic Neck: supple, symmetric, no JVD Heart: RRR, no murmur, no gallops, no rubs Respiratory: CTAB, no wheezes, no rales, no ronchi Gastrointestinal: soft, non-tender, non-distended, normal bowel sounds Extremities: no cyanosis, no clubbing, no edema Extremities - other findings: Left hand are generally swollen. Skin: normal turgor Neurological: cranial nerve grossly intact, no weakness, no focal deficits Psychiatric: normal affect, normal behavior, A&O x 3 Hospitalist Results Result Diagrams: 04/14/20 04:45 04/13/20 18:17 Lab results: Laboratory Last Values WBC 15.2 thou/uL (4.8-10.8) H 04/13/20 18:17 RBC 5.00 mill/uL (4.20-5.40) 04/13/20 18:17 Hgb 15.0 g/dL (12.0-16.0) 04/13/20 18:17 Hct 45.9 % (36.0-47.0) 04/13/20 18:17 MCV 91.9 fL (78.0-98.0) 04/13/20 18:17 MCH 30.0 pg (27.0-31.0) 04/13/20 18:17 MCHC 32.6 g/dL (32.0-36.0) 04/13/20 18:17 RDW 13.4 % (11.5-14.5) 04/13/20 18:17 Plt Count 252 thou/uL (130-400) 04/13/20 18:17 MPV 8.8 fL (7.4-10.4) 04/13/20 18:17 Neutrophils % 71.2 % (42.0-75.0) 04/13/20 18:17 Lymphocytes % 21.3 % (21.0-51.0) 04/13/20 18:17 Monocytes % 5.8 % (0.0-10.0) 04/13/20 18:17 Eosinophils % 0.9 % (0.0-10.0) 04/13/20 18:17 Basophils % 0.8 % (0.0-1.0) 04/13/20 18:17 Neutrophils # 10.8 thou/uL (1.40-6.50) H 04/13/20 18:17 Lymphocytes # 3.3 thou/uL (1.20-3.40) 04/13/20 18:17 Monocytes # 0.9 thou/uL (0.11-0.59) H 04/13/20 18:17 Eosinophils # 0.1 thou/uL (0.0-0.7) 04/13/20 18:17 Basophils # 0.1 thou/uL (0.0-0.2) 04/13/20 18:17 Sodium 136 mmol/L (136-145) 04/13/20 18:17 Potassium 4.7 mmol/L (3.5-5.1) 04/13/20 18:17 Chloride 105 mmol/L (98-107) 04/13/20 18:17 Carbon Dioxide 18 mmol/L (22-29) L 04/13/20 18:17 Anion Gap 18 mmol/L (10-20) 04/13/20 18:17 BUN 48 mg/dL (7.0-18.7) H 04/13/20 18:17 Creatinine 2.15 mg/dL (0.6-1.1) H 04/13/20 18:17 Estimated GFR (MDRD) 26 04/13/20 18:17 Glucose 85 mg/dL (70-105) 04/13/20 18:17 Lactic Acid 1.4 mmol/L (0.5-2.2) 04/13/20 18:18 Calcium 9.7 mg/dL (7.8-10.44) 04/13/20 18:17 C-Reactive Protein 1.90 mg/dL (= or < 0.5) H 04/13/20 18:17 Serum , Qual Negative (NEGATIVE) 04/13/20 20:56 SARS CoV-2 Rapid Source Nasopharyngeal Swab 04/13/20 23:19 SARS-CoV-2 RNA (GI) Not Detected (NotDetected) 04/13/20 23:19 Hospitalist H&P A/P Plan: This is a 34-year-old female patient for history of multiple sclerosis who presents with swelling of her left hand concerning for left hand infection. Left hand infection Secondary to traumatic puncture We will continue antibiotics on daptomycin and Zosyn given it for renal funct ion. Consult ID in a.m. Hand surgeon to evaluate in a.m. possible I&D. Hypertension Blood pressure stable Resume home medication once verified. CODE STATUSfull code VT prophylaxisHeparin
[2020-04-14] MEDS ORDERED: Acetaminophen 325 MG TAB PO PRN (05:12)
[2020-04-14 05:23] LABS: Anion Gap 15 mmol/L (10-20); BUN (Urea Nitrogen) 46 mg/dL (7.0-18.7); Calc. Creatinine Clearance 62 mL/min (70-130); Calcium 8.9 mg/dL (7.8-10.44); Carbon Dioxide 19 mmol/L (22-29); Chloride 105 mmol/L (98-107); Glucose 103 mg/dL (70-105); Potassium 4.3 mmol/L (3.5-5.1); Sodium 135 mmol/L (136-145)
[2020-04-14] MEDS ORDERED: Morphine 4 MG/ML VIAL ONE (05:29)
[2020-04-14] MEDS: Morphine 2 MG/ML VIAL SLOW IVP PRN ×3 (05:36→20:58)
--- NOTE | 2020-04-14 07:41 | CON ---
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 The injury occurred about a week ago. She was seen in the ER about 4 days ago and was given antibiotics. Unfortunately, she presented back last evening on April 13, 2020 with worsening pain, swelling and pus leaking from a puncture wound from the thenar muscular region of her left palm. She was admitted to Medicine. IV antibiotics were started. PHYSICAL EXAMINATION: GENERAL: The patient is resting comfortably in bed. She is awake and alert and oriented to person, place, and time. LEFT HAND/WRIST/FOREARM: There is erythema surrounding a puncture wound over the thenar musculature of the left palm. There is some mild drainage appreciated from the wound as well. She is slightly tender to palpation over the flexor tendon of the left thumb; however, all flexor and extensor tendon functions are grossly intact in all fingers. There is no fusiform swelling in the digits and she is nontender to palpation of the hypothenar region of the left palm and there is no clinical suggestion of a horseshoe abscess. There is no tenderness upon palpation over the forearm. All fingers are neurovascularly intact. Left hand x-rays multiple views taken yesterday were reviewed and appreciated by me. ASSESSMENT AND PLAN: 1. Possible wooden splinter foreign body, left palm. 2. Left palm abscess. I recommended OR removal of foreign body and washout and incision and drainage of left palm in the operating room. I discussed all risks and goals associated with the surgery with the patient. The goal of surgery is to remove the infection and possible foreign body from the patient's left palm and optimize healing of the patient's left hand infection. The risks associated with surgery include, but are not limited to possible nerve injury, blood vessel injury, tendon injury, need for further surgery, injury to nerves, tendons and blood vessels, possible need for further washout and drainage, adverse reaction to anesthesia, etc. She voiced understanding of all risks and goals associated with surgery and has elected to proceed with surgery. Postoperatively, she will remain admitted to the Medicine Service, continue with the IV antibiotics. If there is a drain or packing in place, we will plan on removing that at least 24 to 48 hours following her surgery, depending on her clinical progression. Job ID: [id number] MTDD
--- NOTE | 2020-04-14 08:50 | OP ---
DATE OF PROCEDURE: 04/14/2020 PREOPERATIVE DIAGNOSES: 1. Left hand infection. 2. Left hand foreign body, wooden splinter. POSTOPERATIVE DIAGNOSES: 1. Left hand abscess around the thenar musculature. 2. Left hand foreign body, wooden splinter. PROCEDURES PERFORMED: 1. Incision, drainage and washout, left hand abscess, thenar eminence. 2. Removal of foreign body, wooden splinter, left hand thenar eminence. ANESTHESIA: General and local. TOURNIQUET TIME: 8 minutes. ESTIMATED BLOOD LOSS: Less than 5 mL. FINDINGS: There is a superficial pocket of inflamed and infected tissue underneath the skin surrounding the thenar musculature. There was a wooden foreign body splinter embedded within the thenar musculature. There did not appear to be any penetration in the flexor tendon sheath. There did not appear to be any major injury to the tendon, nerves, or blood vessels in the area. SPECIMEN: Culture and sensitivity as well as wooden foreign body splinter. CONDITION: Stable. INDICATION: The patient is an approximately 34-year-old female, who suffered a wooden splinter foreign body injury to the left palm around the thenar musculature about a week ago. She was seen in the ER 4 days ago, given oral antibiotics. She was only able to take one dose of her oral antibiotics and then presented to the ER again yesterday evening complaining of increased swelling and pain and drainage from a puncture wound over the thenar musculature region of the left thumb. She was admitted to the hospital to the Internal Medicine service, given IV antibiotics, and then scheduled for surgery. I discussed all risks and goals associated with surgery with the patient. She voiced understanding and agreed to proceed. DESCRIPTION OF PROCEDURE: She was brought to the operating room and placed supinely on the operating room table. Left upper extremity tourniquet was applied. Anesthesia was induced by the Anesthesia team. Local anesthetic was infiltrated in the skin around the puncture site over the thenar musculature region of the left palm using 1% lidocaine with epinephrine. This was done after the skin over the area was prepped using alcohol. The left upper extremity was then prepped and draped under sterile aseptic conditions. A second time-out was performed. The left upper extremity was then exsanguinated by gravity. The tourniquet was inflated to 250 mmHg. An incision was made around the area of the puncture site over the thenar musculature region in the left palm using a 15 blade scalpel. Skin flaps were carefully and bluntly elevated. Cultures were sent. I was able to dissect down through the small puncture site that appeared to penetrate through the thenar musculature. I was able to retrieve a fairly sizable wooden splinter. It was removed in its entirety and sent for pathologic specimen. The wound was irrigated thoroughly using sterile saline solution. I dissected a little further bluntly and carefully using tenotomy scissors. There was no significant injury to surrounding nerves, tendons, or blood vessels, no penetration of the flexor tendon sheath. A quarter-inch iodoform packing was left in place and the skin incision was then loosely reapproximated using two nylon sutures. The tourniquet was deflated. All fingers resumed a normal pink color with good refill throughout the entirety of the case and after the deflation of the tourniquet especially. Xeroform was applied over the wound along with a bulky bandage. There was some more local anesthetic that was infiltrated around the incision site to help with postoperative pain. She was extubated and transported back to the recovery area in stable condition. She will remain admitted to the Internal Medicine service, continue with her IV antibiotics, and then I will see her back in about 24 hours for packing removal. We will tailor her antibiotics according to the culture and sensitivity results. Job ID: [id number]
[2020-04-14] MEDS: Piperacillin/Tazobactam 3.375 GM in Sodium Chloride 0.9% 100 ML IVPB SCH ×2 (09:00→21:02)
[2020-04-14] MEDS ORDERED: Piperacillin/Tazobactam 3.375 GM in Sodium Chloride 0.9% 100 ML IVPB SCH (09:00)
[2020-04-14] MEDS: Enoxaparin Sodium 30 MG/0.3 ML SYRINGE SC SCH (09:00)
[2020-04-14] MEDS ORDERED: Vancomycin HCl 1.25 GM in Sodium Chloride 0.9% 250 ML 250 ML IVPB SCH (09:00)
[2020-04-14] MEDS ORDERED: Ketorolac Tromethamine 30 MG/ML VIAL ONE (09:38)
[2020-04-14] MEDS ORDERED: PROPOFOL 200 MG/20 ML VIAL ONE (09:38)
[2020-04-14] MEDS ORDERED: Dexamethasone 20 MG/5 ML VIAL ONE (09:38)
[2020-04-14] MEDS ORDERED: Lidocaine 1% PF 5 ML VIAL ONE (09:38)
[2020-04-14] MEDS ORDERED: DAPTOmycin 500 MG in Sodium Chloride 0.9% 100 ML IVPB SCH (10:00)
[2020-04-14] MEDS: VANCOMYCIN 1.25 GM/250 ML BAG 1.25 GM in Premix Bag 1 BAG IVPB SCH (10:34)
--- NOTE | 2020-04-14 10:46 | PDOC.HOSPP ---
- Subjective Encounter Date: 04/14/20 Encounter Time: 10:44 Subjective: Ms. White was seen today in follow-up of cellulitis of the left upper extremity. She is complaining of being very hungry. She notes appropriate pain in the hand. - Objective Vital Signs & Weight: Weight Weight 200 lb 0.054 oz Result Diagrams: 04/14/20 04:45 04/14/20 04:45 Hospitalist ROS - Medication Medications: Active Medications Generic Name Dose Route Start Last Admin Trade Name Freq PRN Reason Stop Dose Admin Vancomycin HCl 1.25 gm/ Device 250 mls @ 166.667 mls/hr 04/14/20 10:00 04/14/20 10:34 IVPB 250 mls 1000 ERIC Administration Morphine Sulfate 2 mg 04/14/20 05:13 04/14/20 05:36 Morphine 2 Mg/Ml Vial SLOW IVP 2 mg Q4H PRN Administration Pain Hospitalist Exam Vitals: Weight Weight 200 lb 0.054 oz Eye: PERRL, anicteric sclera Heart: RRR, no murmur, no gallops, no rubs, normal peripheral pulses Respiratory: CTAB, no wheezes, no rales, no ronchi, normal chest expansion, no tachypnea, normal percussion Gastrointestinal: soft, non-tender, non-distended, normal bowel sounds, no palpable masses, no hepatomegaly Extremities: no cyanosis, no edema (hand is dressed) Hosp A/P (1) Cellulitis of left hand Code(s): L03.114 - CELLULITIS OF LEFT UPPER LIMB Status: Acute (2) HTN (hypertension) Code(s): I10 - ESSENTIAL (PRIMARY) HYPERTENSION Status: Chronic - Plan * Cellulitis of the left hand- she is s/p I&D * Will continue Vancomycin and Zosyn, pending culture results * HTN- will reconcile and re-start her home medications * ?- will need to review her medical records.
[2020-04-14] MEDS ORDERED: cloNIDine 0.1 MG TAB PO PRN (10:52)
[2020-04-14] MEDS ORDERED: Ibuprofen 600 MG TAB PO PRN (16:46)
[2020-04-14] MEDS ORDERED: Ketorolac Tromethamine 30 MG/ML VIAL IVP PRN (16:46)
[2020-04-14] MEDS: HYDROcodone/Acetaminophen 7.5/325 mg Tablet PO PRN (18:00)
[2020-04-15] MEDS: HYDROcodone/Acetaminophen 7.5/325 mg Tablet PO PRN ×2 (00:11→08:44)
[2020-04-15] MEDS: Morphine 2 MG/ML VIAL SLOW IVP PRN ×2 (05:20→11:13)
[2020-04-15 06:22] LABS: #Eosinphils 0.1 thou/uL (0.0-0.7); #Lymphocytes 2.5 thou/uL (1.20-3.40); #Monocytes 1.1 thou/uL (0.11-0.59); %Basophils 0.1 % (0.0-1.0); %Eosinophils 0.5 % (0.0-10.0); %Lymphocytes 15.2 % (21.0-51.0); %Monocytes 6.4 % (0.0-10.0); %Neutrophils 77.9 % (42.0-75.0); Hemoglobin 12.1 g/dL (12.0-16.0); Mean Corpuscular HGB CONC 32.7 g/dL (32.0-36.0); Mean Corpuscular Hemoglobin 30.5 pg (27.0-31.0); Mean Corpuscular Volume 93.3 fL (78.0-98.0); Mean Platelet Volume 9.1 fL (7.4-10.4); Platelet Count 244 thou/uL (130-400); RBC Distribution Width 13.4 % (11.5-14.5); Red Blood Cell (RBC) Count 3.97 mill/uL (4.20-5.40); White Blood Cell (WBC) Count 16.7 thou/uL (4.8-10.8)
[2020-04-15 06:39] LABS: Anion Gap 15 mmol/L (10-20); BUN (Urea Nitrogen) 38 mg/dL (7.0-18.7); Calc. Creatinine Clearance 64 mL/min (70-130); Calcium 8.7 mg/dL (7.8-10.44); Carbon Dioxide 18 mmol/L (22-29); Chloride 109 mmol/L (98-107); Glucose 119 mg/dL (70-105); Potassium 4.7 mmol/L (3.5-5.1); Sodium 137 mmol/L (136-145)
--- NOTE | 2020-04-15 07:45 | PRG ---
DATE OF SERVICE: SUBJECTIVE: The patient is a 34-year-old female, seen today, postoperative day #1, removal of foreign body and I and D of left palm. The patient is doing well. She is tolerating her antibiotics. She states that her left hand pain is now improved compared to preoperative exam. She denies any numbness or tingling in the fingers of her left hand. PHYSICAL EXAMINATION: GENERAL: The patient is resting comfortably in bed. She is awake, alert, and oriented to person, place, and time. LEFT HAND/WRIST: Wound appears to be healing well. There is no purulent drainage. The erythema and swelling are improved compared to preoperative exam. She is less tender to palpation, especially over the base of the left thumb and her only area of tenderness is directly over the incision site, which is expected for postoperative pain. All flexor and extensor tendon functions are grossly intact. There is no lymphangitis. No adenopathy appreciated. No fusiform swelling in the fingers. No compartment syndrome. ASSESSMENT AND PLAN: Status post left hand I and D and washout and removal of wooden foreign body, postoperative day #1, left hand. The patient's packing was removed today in the clinic. She may be discharged home on oral antibiotics as per internal medicine recommendations. I can see her for followup in my hand surgery clinic at [facility] at the [facility] on Sunday morning. She may participate in hand soaks daily twice a day, once in the morning and once in the evening, in clean warm water mixed with Hibiclens and then appropriate dressing changes with Xeroform directly over the wound and a bulky dressing. She should keep the wound out of dirty environment at all times. She may participate in a home exercise program for gentle range of motion exercises of the fingers, hand, and wrist. Please feel free to call Dr. Duff cellphone for any further questions, . Job ID: [id number]
[2020-04-15] MEDS: Piperacillin/Tazobactam 3.375 GM in Sodium Chloride 0.9% 100 ML IVPB SCH (08:44)
[2020-04-15] MEDS: Enoxaparin Sodium 30 MG/0.3 ML SYRINGE SC SCH (08:45)
--- NOTE | 2020-04-15 09:23 | PDOC.HOSPP ---
- Subjective Encounter Date: 04/15/20 Encounter Time: 09: Subjective: Ms. White was seen today in follow-up of cellulitis of the left hand. She notes some improvement. She continues to have some pain. - Objective Vital Signs & Weight: Vital Signs (12 hours) Temp Pulse Resp BP BP Pulse Ox 04/15/20 07:34 97.8 F 68 14 118/79 98 04/15/20 04:30 98.4 F 58 L 18 128/80 98 04/15/20 00:00 98.4 F 56 L 20 130/81 100 Weight Weight 200 lb 0.054 oz I&O: 04/14/20 04/15/20 04/16/20 06:59 06:59 06:59 Intake Total 1250 Balance 1250 Result Diagrams: 04/15/20 05:45 04/15/20 05:45 Hospitalist ROS - Medication Medications: Active Medications Generic Name Dose Route Start Last Admin Trade Name Freq PRN Reason Stop Dose Admin Hydrocodone Bitart/Acetaminophen 1 tab 04/14/20 05:14 04/15/20 08:44 Hydrocodone/Acetaminophen 7.5/325 Mg Tablet PO 1 tab Q4H PRN Administration Mild Pain (1-3) Enoxaparin Sodium 30 mg 04/14/20 09:00 04/15/20 08:45 Enoxaparin Sodium 30 Mg/0.3 Ml Syringe SC Not Given 0900 ERIC Piperacillin Sod/Tazobactam 100 mls @ 200 mls/hr 04/14/20 09:00 04/15/20 08 :44 Sod 3.375 gm/ Sodium Chloride IVPB 100 mls Q12HR ERIC Administration Vancomycin HCl 1.25 gm/ Device 250 mls @ 166.667 mls/hr 04/14/20 10:00 04/14/20 10:34 IVPB 250 mls 1000 ERIC Administration Morphine Sulfate 2 mg 04/14/20 05:13 04/15/20 05:20 Morphine 2 Mg/Ml Vial SLOW IVP 2 mg Q4H PRN Administration Pain Hospitalist Exam Vitals: Vital Signs (12 hours) Temp Pulse Resp BP BP Pulse Ox 04/15/20 07:34 97.8 F 68 14 118/79 98 04/15/20 04:30 98.4 F 58 L 18 128/80 98 04/15/20 00:00 98.4 F 56 L 20 130/81 100 Weight Weight 200 lb 0.054 oz Eye: PERRL, anicteric sclera Heart: RRR, no murmur, no gallops, no rubs, normal peripheral pulses Respiratory: CTAB, no wheezes, no rales, no ronchi, normal chest expansion, no tachypnea Extremities: no cyanosis (, mild edema of the hand, incision site looks good, no drainage) Hosp A/P (1) Cellulitis of left hand Code(s): L03.114 - CELLULITIS OF LEFT UPPER LIMB Status: Acute (2) HTN (hypertension) Code(s): I10 - ESSENTIAL (PRIMARY) HYPERTENSION Status: Chronic - Plan * Cellulitis of the left hand- preliminary cultures show no organisms present, and is negative so far * HTN- blood pressure is controlled * Stable for discharge home
[2020-04-15] MEDS: VANCOMYCIN 1.25 GM/250 ML BAG 1.25 GM in Premix Bag 1 BAG IVPB SCH (11:29)
[2020-04-15 11:49] VITALS: BP 138/88; TEMP 98.5
--- NOTE | 2020-04-15 16:20 | PDOC.DS.DS ---
Provider Date of Admission: 04/13/20 20:23 Date of Discharge: 04/15/20 Admitting Provider: Ethan Huffman MD Consultations: Plastic Surgery Primary Care Physician: [facility] Clinic Course Hospital Course: Ms. White is a very pleasant 34-year-old female that has a history of multiple sclerosis hypertension and previous stroke. She was helping her with some carpentry and a splinter into her hand. She tried removing the splinter but it was unsuccessful. Unfortunately she developed a cellulitis and abscess in that hand following this accident. She was evaluated in the ER and it was felt that she would be best served by having a hand surgeon see her. She underwent I&D by Dr. Duff. She was placed on IV antibiotics during her hospital stay. The following day and she was improved stabilized and her antibiotics were transitioned over to an oral antibiotic. Cultures from the wound were negative at the time of discharge there were no organisms seen on Gram stain. And she was transitioned to Augmentin at the time of discharge. And was instructed to have close outpatient follow-up and to follow-up with the instructions outlined by Dr. Duff. Lab Results: 04/15/20 05:45 04/15/20 05:45 Abnormal Lab Results - Last 48 hrs 04/13/20 18:17: Carbon Dioxide 18 L, BUN 48 H, Creatinine 2.15 H, C-Reactive Protein 1.90 H 04/13/20 18:17: WBC 15.2 H, Neutrophils # 10.8 H, Monocytes # 0.9 H 04/14/20 04:45: Sodium 135 L, Carbon Dioxide 19 L, BUN 46 H, Creatinine 1.86 H 04/14/20 04:45: WBC 11.2 H, Neutrophils # 7.3 H, Monocytes # 0.8 H 04/15/20 05:45: Chloride 109 H, Carbon Dioxide 18 L, BUN 38 H, Creatinine 1.80 H 04/15/20 05:45: WBC 16.7 H, RBC 3.97 L, Neutrophils % 77.9 H, Lymphocytes % 15.2 L, Neutrophils # 13.0 H, Monocytes # 1.1 H Microbiology - Entire Visit 04/13/20 19:59 Venous blood - Left Hand Blood Culture - Preliminary NO GROWTH AT 48 HOURS 04/13/20 19:53 Venous blood - Left Hand Blood Culture - Preliminary NO GROWTH AT 48 HOURS 04/14/20 09:35 Hand - E swab Bacterial Culture - Preliminary 04/14/20 09:35 Hand - E swab Anaerobic Culture - Pending Vitals: Vital Signs (12 hours) Temp Pulse Resp BP BP Pulse Ox 04/15/20 11:32 98.5 F 59 L 12 138/88 98 04/15/20 08:20 98 04/15/20 07:34 97.8 F 68 14 118/79 98 04/15/20 04:30 98.4 F 58 L 18 128/80 98 Weight Weight 200 lb 0.054 oz Physical Exam: The patient was seen and examined on the day of discharge. Problem (1) Cellulitis of left hand Code(s): L03.114 - CELLULITIS OF LEFT UPPER LIMB Status: Acute (2) HTN (hypertension) Code(s): I10 - ESSENTIAL (PRIMARY) HYPERTENSION Status: Chronic Plan Prescriptions: Amoxicillin/Potassium Clav [Augmentin 875-125 Tablet] 1 each PO BID #14 tablet HYDROcodone Bit/APAP 7.5/325 [[place]] 1 tab PO Q4H PRN #10 tab PRN Reason: Mild Pain (1-3) Home Medications: Medication Instructions Recorded Confirmed Type Lisinopril 10 mg PO DAILY 12/05/19 04/14/20 History Amlodipine [Norvasc] 5 mg PO DAILY 04/14/20 04/14/20 History cloNIDine [Catapres] 0.1 mg PO BID 04/14/20 04/14/20 History Amoxicillin/Potassium Clav 1 each PO BID #14 tablet 04/15/20 Rx [Augmentin 875-125 Tablet] HYDROcodone Bit/APAP 7.5/325 1 tab PO Q4H PRN #10 tab 04/15/20 Rx [[place]] Allergies: No Known Drug Allergies Allergy (Verified 02/20/20 19:44) Discharge Instructions:: [facility] Soak hand two times a day, once in morning and once in evening, with warm water and hibiclens, and dress daily with xeroform. Referrals: Yajaira Cervantes NP [[facility]] - 04/15/20 4:15 pm (Please remember to bring all medication bottles to clinic, along with all hospital discharge paperwork. ) Bo Duff MD [Active] - (Call for follow up appointment (Sunday visit)) Disposition: HOME Quality CORE MEASURES:: N/A
== END 2020-04-15 12:20 | disposition home or self-care (01) | DRG 580 ==
LOC: ERS 16:58 → ERHOLD 20:23 → SJJU 04-14 15:38
PROVIDERS: ADMIT Student in an Organized Health Care Education/Training Program; ATTEND Internal Medicine
PROC: 0J9K0ZZ Drainage of Left Hand Subcutaneous Tissue and Fascia, Open Approach (ICD-10-PCS; principal; 2020-04-14)
PROC: 0KCD0ZZ Extirpation of Matter from Left Hand Muscle, Open Approach (ICD-10-PCS; 2020-04-14)
DX: L02.512 Cutaneous abscess of left hand (principal); N17.9 Acute kidney failure, unspecified; G35 Multiple sclerosis; I10 Essential (primary) hypertension; S60.552A Superficial foreign body of left hand, initial encounter; F17.210 Nicotine dependence, cigarettes, uncomplicated; Z20.822 Contact with and (suspected) exposure to COVID-19; W45.8XXA Other foreign body or object entering through skin, initial encounter; Z86.73 Personal history of transient ischemic attack (TIA), and cerebral infarction without residual deficits; Z98.51 Tubal ligation status
CPT/HCPCS: 36415; 80048; 83605; 84703; 85025; 86140; 87040; 87070; 87205; 87635; 88300; J1100; J1885; J2270; J2405; J2543; J2704; J3370; J3490; U0003; U0005

== ENCOUNTER 2020-07-26 18:14 | Emergency (ER) | payer SELFPAY ==
[2020-07-26 20:03] LABS: #Eosinphils 0.1 thou/uL (0.0-0.7); #Lymphocytes 2.8 thou/uL (1.20-3.40); #Monocytes 0.5 thou/uL (0.11-0.59); #Neutrophils 7.4 thou/uL (1.40-6.50); %Basophils 0.3 % (0.0-1.0); %Lymphocytes 26.1 % (21.0-51.0); %Monocytes 4.4 % (0.0-10.0); %Neutrophils 68.2 % (42.0-75.0); Hemoglobin 15.4 g/dL (12.0-16.0); Mean Corpuscular HGB CONC 34.4 g/dL (32.0-36.0); Mean Corpuscular Hemoglobin 31.8 pg (27.0-31.0); Mean Corpuscular Volume 92.4 fL (78.0-98.0); Mean Platelet Volume 8.5 fL (7.4-10.4); Platelet Count 257 thou/uL (130-400); RBC Distribution Width 12.3 % (11.5-14.5); Red Blood Cell (RBC) Count 4.85 mill/uL (4.20-5.40); White Blood Cell (WBC) Count 10.9 thou/uL (4.8-10.8)
[2020-07-26 20:27] LABS: ALT (SGPT) 18 U/L (8-55); AST (SGOT) 12 U/L (5-34); Albumin 4.1 g/dL (3.5-5.0); Alkaline Phosphatase 73 U/L (40-110); Anion Gap 17 mmol/L (10-20); BUN (Urea Nitrogen) 18 mg/dL (7.0-18.7); Bilirubin, Total 0.3 mg/dL (0.2-1.2); Calc. Creatinine Clearance 0 mL/min (70-130); Calcium 9.6 mg/dL (7.8-10.44); Carbon Dioxide 22 mmol/L (22-29); Chloride 104 mmol/L (98-107); Globulin 3.5 g/dL (2.4-3.5); Glucose 113 mg/dL (70-105); Protein, Total 7.6 g/dL (6.0-8.3); Sodium 139 mmol/L (136-145)
[2020-07-26 20:28] LABS: BHCG - Serum Negative (NEGATIVE); Pregs Control Background? CLEAR/WHITE (CLR/WHITE); Pregs Control Bar Appear? YES (CONTROL BAR)
[2020-07-26 20:46] LABS: Bilirubin Negative (Negative); Blood, Urine Negative (Negative); Glucose, Urine (Dipstick) Negative (Negative); Ketone, Urine Negative (Negative); Leukocyte Small (Negative); Nitrite Positive (Negative); Protein, Urine (Dipstick) Negative (Neg-Trace); Specific Gravity, Urine 1.025 (1.005-1.030); Urobilinogen 0.2 mg/dL (Less than 2)
[2020-07-26 20:49] LABS: WBC/HPF 21-50 HPF (0-3)
[2020-07-26 20:50] LABS: Bacteria/HPF 4+ HPF (None Seen)
[2020-07-26 20:51] LABS: Clarity Cloudy (Clear)
[2020-07-26] MEDS ORDERED: cefTRIAXone\\ROCEPHIN 2 GM VIAL ONE (21:18)
[2020-07-26] MEDS ORDERED: methylPREDNISolone Sod Succ/PF 125 MG/2 ML VIAL ONE (21:18)
[2020-07-26] MEDS ORDERED: Ketorolac Tromethamine 30 MG/ML VIAL ONE (21:18)
[2020-07-26] MEDS ORDERED: Metoclopramide HCl 10 MG/2 ML VIAL ONE (21:18)
[2020-07-26] MEDS ORDERED: diphenhydrAMINE 50 MG/ML VIAL ONE (21:18)
[2020-07-27 11:14] LABS: SARS-CoV-2 PCR by NAA Not Detected (NotDetected)
== END 2020-07-26 23:13 | disposition home or self-care (01) ==
LOC: ERS 18:14
DX: N30.00 Acute cystitis without hematuria (principal); F17.210 Nicotine dependence, cigarettes, uncomplicated; I10 Essential (primary) hypertension; G35 Multiple sclerosis; Z79.899 Other long term (current) drug therapy; Z86.73 Personal history of transient ischemic attack (TIA), and cerebral infarction without residual deficits
CPT/HCPCS: 36415; 71045; 80053; 81003; 81015; 84703; 85025; 96365; 96375; J0696; J1200; J1885; J2765; J2930; U0003; U0005

== ENCOUNTER 2020-09-17 14:05 | Emergency (ER) | payer SELFPAY ==
[2020-09-17] MEDS ORDERED: Acetaminophen 500 MG TAB ONE (14:46)
[2020-09-18 15:25] LABS: SARS-CoV-2 PCR by NAA Not Detected (NotDetected)
== END 2020-09-17 15:40 | disposition home or self-care (01) ==
LOC: ERS 14:05
DX: R05 Cough (principal); R09.81 Nasal congestion; R09.89 Other specified symptoms and signs involving the circulatory and respiratory systems; R53.1 Weakness; R52 Pain, unspecified; J02.9 Acute pharyngitis, unspecified; R50.9 Fever, unspecified; R53.83 Other fatigue; Z20.822 Contact with and (suspected) exposure to COVID-19; G35 Multiple sclerosis; I10 Essential (primary) hypertension; F17.210 Nicotine dependence, cigarettes, uncomplicated; Z86.73 Personal history of transient ischemic attack (TIA), and cerebral infarction without residual deficits
CPT/HCPCS: 99283; U0003; U0005

== ENCOUNTER 2020-11-15 11:17 | Inpatient (IN) | payer MEDICAID, SELFPAY ==
[~2020-11-15 11:17] MED LIST: Iopamidol-370 76% 500 ML 1 ML ONE
[2020-11-15 11:38] LABS: Actual Bicarbonate (HCO3a) 19.4 mEq/L (22-28); Analyzer IN Cardio ER; Base Excess (BEa) -3.3 mEq/L (-2.0 to +3.0); CO2 Tension 29.5 mmHg (35.0-45.0); Calcium, Ionized (arterial) 1.12 mmol/L (1.12-1.30); Carboxyhemoglobin (COHb) 0.8 gm% (0.0-3.0); Hemoglobin (Hb) 15.9 g/dL (12.0-16.0); O2 Tension (PaO2), arterial 76.1 mmHg (80.0-100.0); Potassium - ABG Lab 3.73 mmol/L (3.70-5.30); pH, Arterial 7.44 (7.35-7.45)
[2020-11-15 11:39] LABS: ALV-art Gradient 172.225 mmHg (0-20); Puncture Site RBA
[2020-11-15] MEDS ORDERED: Mannitol 12.5 GM/50 ML ONE (13:53)
[2020-11-15] MEDS ORDERED: Vecuronium 10 MG VIAL ONE ×4 (14:08→15:12)
[2020-11-15] MEDS ORDERED: Dexamethasone 20 MG/5 ML VIAL ONE (14:08)
[2020-11-15] MEDS ORDERED: PROPOFOL 200 MG/20 ML VIAL ONE (14:08)
[2020-11-15] MEDS ORDERED: Fentanyl 100 MCG/2 ML VIAL ONE ×2 (14:55)
[2020-11-15] MEDS ORDERED: Electrolyte Replacement Protocol IVPB PRN (15:24)
[2020-11-15] MEDS ORDERED: niCARdipine 25 MG in Sodium Chloride 0.9% 250 ML 250 ML IVPB PRN (15:24)
[2020-11-15] MEDS ORDERED: Ondansetron PF 4 MG/2 ML Vial IVP PRN (15:24)
[2020-11-15] MEDS ORDERED: Ventilator Sedation Protocol 1 EACH FS SCH (15:30)
[2020-11-15] MEDS ORDERED: Morphine 2 MG/ML VIAL SLOW IVP PRN (15:31)
[2020-11-15] MEDS ORDERED: DISCONTINUE PREVIOUS NARCOTIC PAIN MEDICATIONS AND BENZODIAZEPINES FS SCH (15:45)
[2020-11-15] MEDS ORDERED: Propofol BOLUS 1,000 MG/100 ML VIAL IV PRN (15:45)
[2020-11-15] MEDS ORDERED: Fentanyl CADD 100 ML IV SCH (15:45)
[2020-11-15] MEDS ORDERED: Fentanyl BOLUS 250 ML IVPB PRN (15:45)
[2020-11-15] MEDS ORDERED: Propofol 1,000 MG/100 ML VIAL IV ONE ×2 (16:01→22:26)
[2020-11-15 16:07] LABS: Actual Bicarbonate (HCO3a) 20.8 mEq/L (22-28); Base Excess (BEa) -3.3 mEq/L (-2.0 to +3.0); CO2 Tension 34.9 mmHg (35.0-45.0); Calcium, Ionized (arterial) 1.08 mmol/L (1.12-1.30); Hemoglobin (Hb) 14.6 g/dL (12.0-16.0); O2 Tension (PaO2), arterial 140.6 mmHg (80.0-100.0); Potassium - ABG Lab 4.76 mmol/L (3.70-5.30); pH, Arterial 7.39 (7.35-7.45)
[2020-11-15 16:16] LABS: ALV-art Gradient 243.575 mmHg (0-20)
[2020-11-15] MEDS ORDERED: Ventilator Sedation Protocol 1 EACH FS ONE (16:22)
[2020-11-15] MEDS ORDERED: Electrolyte Replacement Protocol 1 EACH FS PRN (16:22)
[2020-11-15] MEDS ORDERED: Famotidine/PF 20 mg/2ml Vial SLOW IVP SCH (21:00)
[2020-11-15 22:02] LABS: Potassium 3.8 mmol/L (3.5-5.1)
[2020-11-15] MEDS: Morphine 2 MG/ML VIAL SLOW IVP PRN (22:09)
[2020-11-15] MEDS: Sodium Chloride 0.9% 1,000 ML IV SCH (22:40)
[2020-11-15] MEDS ORDERED: niCARdipine 25 MG in Sodium Chloride 0.9% 250 ML 240 ML IVPB PRN (22:45)
[2020-11-16] MEDS: niCARdipine 50 MG in Sodium Chloride 0.9% 250 ML 230 ML IVPB PRN ×4 (01:10→21:14)
[2020-11-16] MEDS: Morphine 2 MG/ML VIAL SLOW IVP PRN (03:20)
[2020-11-16 04:15] LABS: Anion Gap 14 mmol/L (10-20); BUN (Urea Nitrogen) 30 mg/dL (7.0-18.7); Calc. Creatinine Clearance 48 mL/min (70-130); Calcium 9.2 mg/dL (7.8-10.44); Carbon Dioxide 23 mmol/L (22-29); Chloride 108 mmol/L (98-107); Glucose 132 mg/dL (70-105); Potassium 4.3 mmol/L (3.5-5.1); Sodium 141 mmol/L (136-145)
[2020-11-16] MEDS: Sodium Chloride 0.9% 1,000 ML IV SCH ×2 (04:23→17:17)
[2020-11-16 04:38] LABS: Band 34 % (5-11); Hemoglobin 14.3 g/dL (12.0-16.0); Lymphocytes 4 % (21-51); MDiff Complete? YES; Mean Corpuscular HGB CONC 31.1 g/dL (32.0-36.0); Mean Corpuscular Hemoglobin 28.1 pg (27.0-31.0); Mean Corpuscular Volume 90.2 fL (78.0-98.0); Mean Platelet Volume 8.8 fL (7.4-10.4); Neutrophil 61 % (42-75); Platelet Count 312 thou/uL (130-400); Platelet Morphology Comment Appears Adequate; RBC Distribution Width 13.7 % (11.5-14.5); RBC Morphology Normal; Reactive Lymphocytes 1 % (0-10); Red Blood Cell (RBC) Count 5.07 mill/uL (4.20-5.40); White Blood Cell (WBC) Count 29.4 thou/uL (4.8-10.8)
[2020-11-16 07:34] LABS: Base Excess (BEa) -3.7 mEq/L (-2.0 to +3.0); CO2 Tension 32.3 mmHg (35.0-45.0); Calcium, Ionized (arterial) 1.16 mmol/L (1.12-1.30); Carboxyhemoglobin (COHb) 0.8 gm% (0.0-3.0); Hemoglobin (Hb) 14.4 g/dL (12.0-16.0); O2 Tension (PaO2), arterial 68.2 mmHg (80.0-100.0); Potassium - ABG Lab 4.35 mmol/L (3.70-5.30); pH, Arterial 7.41 (7.35-7.45)
[2020-11-16 08:22] LABS: Puncture Site LRA
[2020-11-16 08:23] LABS: ALV-art Gradient 176.625 mmHg (0-20)
[2020-11-16] MEDS: Famotidine/PF 20 mg/2ml Vial SLOW IVP SCH (21:17)
[2020-11-16] MEDS: Morphine 4 MG/ML VIAL SLOW IVP PRN (21:20)
[2020-11-17 04:04] LABS: Anion Gap 12 mmol/L (10-20); BUN (Urea Nitrogen) 41 mg/dL (7.0-18.7); Calc. Creatinine Clearance 41 mL/min (70-130); Calcium 8.6 mg/dL (7.8-10.44); Carbon Dioxide 24 mmol/L (22-29); Chloride 115 mmol/L (98-107); Glucose 113 mg/dL (70-105); Potassium 4.1 mmol/L (3.5-5.1); Sodium 147 mmol/L (136-145)
[2020-11-17] MEDS: Sodium Chloride 0.9% 1,000 ML IV SCH ×2 (05:20→17:12)
[2020-11-17] MEDS: Morphine 4 MG/ML VIAL SLOW IVP PRN ×5 (08:00→19:54)
[2020-11-17 08:39] LABS: Actual Bicarbonate (HCO3a) 22.3 mEq/L (22-28); Base Excess (BEa) -0.5 mEq/L (-2.0 to +3.0); CO2 Tension 31.7 mmHg (35.0-45.0); Calcium, Ionized (arterial) 1.17 mmol/L (1.12-1.30); Carboxyhemoglobin (COHb) 0.5 gm% (0.0-3.0); Hemoglobin (Hb) 14.6 g/dL (12.0-16.0); O2 Tension (PaO2), arterial 86.9 mmHg (80.0-100.0); Potassium - ABG Lab 3.81 mmol/L (3.70-5.30); pH, Arterial 7.47 (7.35-7.45)
[2020-11-17 08:40] LABS: ALV-art Gradient 158.675 mmHg (0-20); Puncture Site LRA
[2020-11-17] MEDS: niCARdipine 50 MG in Sodium Chloride 0.9% 250 ML 230 ML IVPB PRN ×2 (09:33→17:12)
[2020-11-17] MEDS: Lorazepam 2 MG/ML VIAL SLOW IVP PRN ×3 (15:33→22:27)
[2020-11-17] MEDS: Acetaminophen 325 MG TAB PER TUBE PRN ×2 (17:16→23:06)
[2020-11-17] MEDS: Famotidine/PF 20 mg/2ml Vial SLOW IVP SCH (19:53)
[2020-11-18] MEDS: Morphine 4 MG/ML VIAL SLOW IVP PRN ×3 (01:44→19:18)
[2020-11-18] MEDS: Lorazepam 2 MG/ML VIAL SLOW IVP PRN ×5 (01:45→19:17)
[2020-11-18 04:57] LABS: ALT (SGPT) 12 U/L (8-55); AST (SGOT) 19 U/L (5-34); Albumin 2.9 g/dL (3.5-5.0); Alkaline Phosphatase 78 U/L (40-110); Anion Gap 13 mmol/L (10-20); BUN (Urea Nitrogen) 40 mg/dL (7.0-18.7); Bilirubin, Total 0.5 mg/dL (0.2-1.2); Calc. Creatinine Clearance 51 mL/min (70-130); Calcium 8.1 mg/dL (7.8-10.44); Carbon Dioxide 23 mmol/L (22-29); Chloride 118 mmol/L (98-107); Globulin 2.7 g/dL (2.4-3.5); Glucose 109 mg/dL (70-105); Potassium 4.1 mmol/L (3.5-5.1); Protein, Total 5.6 g/dL (6.0-8.3); Sodium 150 mmol/L (136-145)
[2020-11-18 04:58] LABS: Band 8 % (5-11); Hemoglobin 10.5 g/dL (12.0-16.0); Hypochromia SLIGHT = 6-15 cells (100X) (0-5/hpf); Lymphocytes 11 % (21-51); MDiff Complete? YES; Mean Corpuscular HGB CONC 32.3 g/dL (32.0-36.0); Mean Corpuscular Volume 92.8 fL (78.0-98.0); Mean Platelet Volume 8.8 fL (7.4-10.4); Monocytes 16 % (0-10); Neutrophil 65 % (42-75); Platelet Count 207 thou/uL (130-400); Platelet Morphology Comment Appears Adequate; RBC Distribution Width 13.9 % (11.5-14.5); Red Blood Cell (RBC) Count 3.51 mill/uL (4.20-5.40); White Blood Cell (WBC) Count 21.8 thou/uL (4.8-10.8)
[2020-11-18] MEDS: Sodium Chloride 0.9% 1,000 ML IV SCH (05:52)
[2020-11-18 07:47] LABS: Actual Bicarbonate (HCO3a) 17.6 mEq/L (22-28); Base Excess (BEa) -5.2 mEq/L (-2.0 to +3.0); CO2 Tension 27.2 mmHg (35.0-45.0); Calcium, Ionized (arterial) 1.22 mmol/L (1.12-1.30); Carboxyhemoglobin (COHb) 0.9 gm% (0.0-3.0); Hemoglobin (Hb) 14.3 g/dL (12.0-16.0); Potassium - ABG Lab 3.97 mmol/L (3.70-5.30); pH, Arterial 7.43 (7.35-7.45)
[2020-11-18 08:23] LABS: O2 Tension (PaO2), arterial 86.7 mmHg (80.0-100.0)
[2020-11-18 08:24] LABS: Puncture Site RRA
[2020-11-18] MEDS: Dextrose 5 %-0.45 % NaCl 1,000 ML IV SCH (15:10)
[2020-11-18] MEDS: Famotidine/PF 20 mg/2ml Vial SLOW IVP SCH (19:17)
[2020-11-18] MEDS: Acetaminophen 650 MG/20.3 ML UDCUP PER TUBE PRN (20:56)
[2020-11-19] MEDS: Dextrose 5 %-0.45 % NaCl 1,000 ML IV SCH ×2 (01:28→17:04)
[2020-11-19 04:27] LABS: Anion Gap 16 mmol/L (10-20); BUN (Urea Nitrogen) 37 mg/dL (7.0-18.7); Calc. Creatinine Clearance 70 mL/min (70-130); Carbon Dioxide 20 mmol/L (22-29); Chloride 113 mmol/L (98-107); Potassium 3.7 mmol/L (3.5-5.1); Sodium 145 mmol/L (136-145)
[2020-11-19 04:28] LABS: Calcium 8.2 mg/dL (7.8-10.44); Glucose 124 mg/dL (70-105)
[2020-11-19 07:31] LABS: Actual Bicarbonate (HCO3a) 20.7 mEq/L (22-28); Base Excess (BEa) -1.8 mEq/L (-2.0 to +3.0); CO2 Tension 28.3 mmHg (35.0-45.0); Calcium, Ionized (arterial) 1.17 mmol/L (1.12-1.30); Carboxyhemoglobin (COHb) 0.6 gm% (0.0-3.0); O2 Tension (PaO2), arterial 71.4 mmHg (80.0-100.0); Potassium - ABG Lab 3.75 mmol/L (3.70-5.30); pH, Arterial 7.48 (7.35-7.45)
[2020-11-19 07:36] LABS: Puncture Site RBA
[2020-11-19 07:37] LABS: ALV-art Gradient 178.425 mmHg (0-20)
[2020-11-19] MEDS ORDERED: Piperacillin/Tazobactam 3.375 GM in Sodium Chloride 0.9% 100 ML IVPB SCH ×2 (12:15→13:00)
[2020-11-19] MEDS: Lorazepam 2 MG/ML VIAL SLOW IVP PRN ×3 (13:05→20:35)
[2020-11-19] MEDS: Morphine 4 MG/ML VIAL SLOW IVP PRN (15:11)
[2020-11-19] MEDS: Piperacillin/Tazobactam 3.375 GM in Sodium Chloride 0.9% 100 ML IVPB SCH (17:04)
[2020-11-19] MEDS: Acetaminophen 650 MG/20.3 ML UDCUP PER TUBE PRN (20:35)
[2020-11-19] MEDS: Famotidine/PF 20 mg/2ml Vial SLOW IVP SCH (21:18)
[2020-11-20] MEDS: Piperacillin/Tazobactam 3.375 GM in Sodium Chloride 0.9% 100 ML IVPB SCH ×3 (00:16→17:47)
[2020-11-20] MEDS: Morphine 4 MG/ML VIAL SLOW IVP PRN (03:04)
[2020-11-20] MEDS: Acetaminophen 650 MG/20.3 ML UDCUP PER TUBE PRN ×3 (03:08→20:03)
[2020-11-20 05:34] LABS: Hemoglobin 9.5 g/dL (12.0-16.0); Mean Corpuscular Hemoglobin 29.6 pg (27.0-31.0); Mean Corpuscular Volume 92.5 fL (78.0-98.0); Mean Platelet Volume 9.6 fL (7.4-10.4); Platelet Count 210 thou/uL (130-400); RBC Distribution Width 13.4 % (11.5-14.5); Red Blood Cell (RBC) Count 3.22 mill/uL (4.20-5.40); White Blood Cell (WBC) Count 19.3 thou/uL (4.8-10.8)
[2020-11-20 05:37] LABS: ALT (SGPT) 16 U/L (8-55); AST (SGOT) 16 U/L (5-34); Albumin 2.6 g/dL (3.5-5.0); Alkaline Phosphatase 76 U/L (40-110); Anion Gap 12 mmol/L (10-20); BUN (Urea Nitrogen) 35 mg/dL (7.0-18.7); Bilirubin, Total 0.4 mg/dL (0.2-1.2); Calc. Creatinine Clearance 74 mL/min (70-130); Calcium 8.1 mg/dL (7.8-10.44); Carbon Dioxide 23 mmol/L (22-29); Chloride 113 mmol/L (98-107); Globulin 2.7 g/dL (2.4-3.5); Glucose 125 mg/dL (70-105); Magnesium 2.3 mg/dL (1.6-2.6); Potassium 3.4 mmol/L (3.5-5.1); Protein, Total 5.3 g/dL (6.0-8.3); Sodium 145 mmol/L (136-145)
[2020-11-20 05:45] LABS: Phosphorus 3.3 mg/dL (2.3-4.7)
[2020-11-20 07:10] LABS: Band 21 % (5-11); Lymphocytes 14 % (21-51); MDiff Complete? YES; Monocytes 4 % (0-10); Neutrophil 61 % (42-75)
[2020-11-20] MEDS: Dextrose 5 %-0.45 % NaCl 1,000 ML IV SCH (07:19)
[2020-11-20] MEDS: Sodium Chloride 0.9% 1,000 ML IV SCH (07:26)
[2020-11-20 08:26] LABS: Actual Bicarbonate (HCO3a) 18.8 mEq/L (22-28); Base Excess (BEa) -3.9 mEq/L (-2.0 to +3.0); CO2 Tension 26.2 mmHg (35.0-45.0); Calcium, Ionized (arterial) 1.15 mmol/L (1.12-1.30); Carboxyhemoglobin (COHb) 0.1 gm% (0.0-3.0); Hemoglobin (Hb) 9.3 g/dL (12.0-16.0); O2 Tension (PaO2), arterial 112.1 mmHg (80.0-100.0); Potassium - ABG Lab 3.52 mmol/L (3.70-5.30); pH, Arterial 7.47 (7.35-7.45)
[2020-11-20 08:38] LABS: Puncture Site RRA
[2020-11-20] MEDS ORDERED: Potassium Chloride 40 MEQ in Premix Bag 1 BAG IVPB SCH (09:15)
[2020-11-20] MEDS ORDERED: hydrALAZINE 20 MG/ML VIAL SLOW IVP PRN (11:16)
[2020-11-20] MEDS: Lorazepam 2 MG/ML VIAL SLOW IVP PRN ×2 (11:30→20:01)
[2020-11-20] MEDS: Famotidine/PF 20 mg/2ml Vial SLOW IVP SCH (20:02)
[2020-11-21] MEDS: Piperacillin/Tazobactam 3.375 GM in Sodium Chloride 0.9% 100 ML IVPB SCH ×3 (00:35→17:12)
[2020-11-21] MEDS: Lorazepam 2 MG/ML VIAL SLOW IVP PRN ×6 (00:39→17:53)
[2020-11-21] MEDS: Morphine 4 MG/ML VIAL SLOW IVP PRN ×4 (03:02→18:19)
[2020-11-21] MEDS: Sodium Chloride 0.9% 1,000 ML IV SCH (03:11)
[2020-11-21 04:13] LABS: #Eosinphils 0.3 thou/uL (0.0-0.7); #Lymphocytes 1.7 thou/uL (1.20-3.40); #Monocytes 0.9 thou/uL (0.11-0.59); #Neutrophils 11.6 thou/uL (1.40-6.50); %Eosinophils 1.7 % (0.0-10.0); %Lymphocytes 11.9 % (21.0-51.0); %Monocytes 5.9 % (0.0-10.0); %Neutrophils 80.4 % (42.0-75.0); Hemoglobin 8.2 g/dL (12.0-16.0); Mean Corpuscular HGB CONC 31.2 g/dL (32.0-36.0); Mean Corpuscular Hemoglobin 28.7 pg (27.0-31.0); Mean Corpuscular Volume 92.1 fL (78.0-98.0); Mean Platelet Volume 9.3 fL (7.4-10.4); Platelet Count 229 thou/uL (130-400); RBC Distribution Width 13.4 % (11.5-14.5); Red Blood Cell (RBC) Count 2.87 mill/uL (4.20-5.40); White Blood Cell (WBC) Count 14.4 thou/uL (4.8-10.8)
[2020-11-21 04:36] LABS: ALT (SGPT) 20 U/L (8-55); AST (SGOT) 24 U/L (5-34); Albumin 2.5 g/dL (3.5-5.0); Alkaline Phosphatase 92 U/L (40-110); Anion Gap 12 mmol/L (10-20); BUN (Urea Nitrogen) 33 mg/dL (7.0-18.7); Bilirubin, Total 0.4 mg/dL (0.2-1.2); Calc. Creatinine Clearance 69 mL/min (70-130); Calcium 8.1 mg/dL (7.8-10.44); Carbon Dioxide 21 mmol/L (22-29); Chloride 118 mmol/L (98-107); Globulin 2.6 g/dL (2.4-3.5); Glucose 106 mg/dL (70-105); Magnesium 2.3 mg/dL (1.6-2.6); Phosphorus 3.5 mg/dL (2.3-4.7); Potassium 3.8 mmol/L (3.5-5.1); Protein, Total 5.1 g/dL (6.0-8.3); Sodium 147 mmol/L (136-145)
[2020-11-21 07:49] LABS: Actual Bicarbonate (HCO3a) 16.8 mEq/L (22-28); Base Excess (BEa) -6.1 mEq/L (-2.0 to +3.0); Carboxyhemoglobin (COHb) 0.3 gm% (0.0-3.0); Hemoglobin (Hb) 8.5 g/dL (12.0-16.0); O2 Tension (PaO2), arterial 103.8 mmHg (80.0-100.0); Potassium - ABG Lab 3.73 mmol/L (3.70-5.30); pH, Arterial 7.45 (7.35-7.45)
[2020-11-21 07:50] LABS: CO2 Tension 24.6 mmHg (35.0-45.0); Puncture Site RRA
[2020-11-21] MEDS: Pantoprazole 40 MG VIAL IVP SCH ×2 (09:03→20:06)
[2020-11-21] MEDS: fentaNYL 50 mcg/hour Patch TD SCH (10:23)
[2020-11-21 12:41] LABS: Vancomycin, Trough 16.5 ug/mL
[2020-11-21] MEDS: Fentanyl 100 MCG/2 ML VIAL SLOW IVP PRN ×2 (13:05→17:09)
[2020-11-21] MEDS ORDERED: cefTRIAXone\\ROCEPHIN 1 GM in Sodium Chloride 0.9% 100 ML IVPB SCH (18:00)
[2020-11-22] MEDS: Sodium Chloride 0.9% 1,000 ML IV SCH (01:02)
[2020-11-22 04:08] LABS: #Basophils 0.1 thou/uL (0.0-0.2); #Eosinphils 0.3 thou/uL (0.0-0.7); #Lymphocytes 2.4 thou/uL (1.20-3.40); #Monocytes 1.1 thou/uL (0.11-0.59); #Neutrophils 8.3 thou/uL (1.40-6.50); %Basophils 0.5 % (0.0-1.0); %Eosinophils 2.2 % (0.0-10.0); %Lymphocytes 19.6 % (21.0-51.0); %Monocytes 8.7 % (0.0-10.0); Mean Corpuscular HGB CONC 32.8 g/dL (32.0-36.0); Mean Corpuscular Hemoglobin 30.3 pg (27.0-31.0); Mean Corpuscular Volume 92.4 fL (78.0-98.0); Mean Platelet Volume 9.6 fL (7.4-10.4); Platelet Count 217 thou/uL (130-400); RBC Distribution Width 13.4 % (11.5-14.5); Red Blood Cell (RBC) Count 2.64 mill/uL (4.20-5.40)
[2020-11-22 04:23] LABS: ALT (SGPT) 23 U/L (8-55); AST (SGOT) 19 U/L (5-34); Albumin 2.5 g/dL (3.5-5.0); Alkaline Phosphatase 100 U/L (40-110); Anion Gap 12 mmol/L (10-20); BUN (Urea Nitrogen) 29 mg/dL (7.0-18.7); Bilirubin, Total 0.3 mg/dL (0.2-1.2); Calc. Creatinine Clearance 82 mL/min (70-130); Calcium 8.2 mg/dL (7.8-10.44); Carbon Dioxide 23 mmol/L (22-29); Chloride 118 mmol/L (98-107); Globulin 2.7 g/dL (2.4-3.5); Glucose 105 mg/dL (70-105); Magnesium 2.2 mg/dL (1.6-2.6); Phosphorus 3.9 mg/dL (2.3-4.7); Potassium 3.7 mmol/L (3.5-5.1); Protein, Total 5.2 g/dL (6.0-8.3); Sodium 149 mmol/L (136-145)
[2020-11-22 07:41] LABS: Actual Bicarbonate (HCO3a) 19.1 mEq/L (22-28); Base Excess (BEa) -3.8 mEq/L (-2.0 to +3.0); CO2 Tension 27.6 mmHg (35.0-45.0); Calcium, Ionized (arterial) 1.17 mmol/L (1.12-1.30); Carboxyhemoglobin (COHb) 0.2 gm% (0.0-3.0); Hemoglobin (Hb) 10.3 g/dL (12.0-16.0); O2 Tension (PaO2), arterial 70.6 mmHg (80.0-100.0); Potassium - ABG Lab 3.68 mmol/L (3.70-5.30); pH, Arterial 7.46 (7.35-7.45)
[2020-11-22] MEDS: Dextrose 5% in Water 1,000 ML IV SCH ×2 (07:54→19:01)
[2020-11-22] MEDS: Pantoprazole 40 MG VIAL IVP SCH ×2 (08:02→20:25)
[2020-11-22 08:04] LABS: Puncture Site RRA
[2020-11-22] MEDS ORDERED: hydrALAZINE 20 MG/ML VIAL SLOW IVP PRN (10:27)
[2020-11-22] MEDS: hydrALAZINE 20 MG/ML VIAL SLOW IVP PRN (10:34)
[2020-11-22] MEDS ORDERED: Amlodipine 5 MG TAB PER TUBE SCH (10:45)
[2020-11-22] MEDS: Lorazepam 2 MG/ML VIAL SLOW IVP PRN ×3 (10:56→20:25)
[2020-11-22] MEDS: Amoxicillin/Potassium Clav 875 MG TAB PO SCH (20:26)
[2020-11-22] MEDS: Fentanyl 100 MCG/2 ML VIAL SLOW IVP PRN (23:45)
[2020-11-23] MEDS: Fentanyl 100 MCG/2 ML VIAL SLOW IVP PRN ×4 (01:25→22:48)
[2020-11-23] MEDS: Lorazepam 2 MG/ML VIAL SLOW IVP PRN ×6 (02:47→20:53)
[2020-11-23 04:33] LABS: #Eosinphils 0.3 thou/uL (0.0-0.7); #Lymphocytes 2.5 thou/uL (1.20-3.40); #Neutrophils 8.7 thou/uL (1.40-6.50); %Basophils 0.3 % (0.0-1.0); %Eosinophils 2.7 % (0.0-10.0); %Lymphocytes 19.9 % (21.0-51.0); %Monocytes 8.2 % (0.0-10.0); Hemoglobin 8.4 g/dL (12.0-16.0); Mean Corpuscular HGB CONC 32.9 g/dL (32.0-36.0); Mean Corpuscular Hemoglobin 29.8 pg (27.0-31.0); Mean Corpuscular Volume 90.6 fL (78.0-98.0); Mean Platelet Volume 10.2 fL (7.4-10.4); Platelet Count 244 thou/uL (130-400); RBC Distribution Width 13.4 % (11.5-14.5); Red Blood Cell (RBC) Count 2.82 mill/uL (4.20-5.40); White Blood Cell (WBC) Count 12.7 thou/uL (4.8-10.8)
[2020-11-23 05:09] LABS: ALT (SGPT) 22 U/L (8-55); AST (SGOT) 20 U/L (5-34); Albumin 2.6 g/dL (3.5-5.0); Alkaline Phosphatase 98 U/L (40-110); Anion Gap 13 mmol/L (10-20); BUN (Urea Nitrogen) 24 mg/dL (7.0-18.7); Bilirubin, Total 0.4 mg/dL (0.2-1.2); Calc. Creatinine Clearance 90 mL/min (70-130); Carbon Dioxide 22 mmol/L (22-29); Chloride 112 mmol/L (98-107); Globulin 2.8 g/dL (2.4-3.5); Glucose 132 mg/dL (70-105); Magnesium 2.1 mg/dL (1.6-2.6); Phosphorus 3.9 mg/dL (2.3-4.7); Potassium 3.5 mmol/L (3.5-5.1); Protein, Total 5.4 g/dL (6.0-8.3); Sodium 143 mmol/L (136-145)
[2020-11-23 07:43] LABS: Actual Bicarbonate (HCO3a) 19.1 mEq/L (22-28); Base Excess (BEa) -3.5 mEq/L (-2.0 to +3.0); CO2 Tension 26.4 mmHg (35.0-45.0); Calcium, Ionized (arterial) 1.19 mmol/L (1.12-1.30); Carboxyhemoglobin (COHb) 0.3 gm% (0.0-3.0); Hemoglobin (Hb) 9.4 g/dL (12.0-16.0); O2 Tension (PaO2), arterial 89.7 mmHg (80.0-100.0); Potassium - ABG Lab 3.34 mmol/L (3.70-5.30); pH, Arterial 7.48 (7.35-7.45)
[2020-11-23 07:44] LABS: Puncture Site LRA
[2020-11-23] MEDS: Amoxicillin/Potassium Clav 875 MG TAB PO SCH ×2 (08:09→19:56)
[2020-11-23] MEDS: Amlodipine 5 MG TAB PER TUBE SCH (08:09)
[2020-11-23] MEDS: Pantoprazole 40 MG VIAL IVP SCH ×2 (08:09→19:56)
[2020-11-23] MEDS: Dextrose 5% in Water 1,000 ML IV SCH (08:12)
[2020-11-23] MEDS: Scopolamine 1.5 mg/72 hour Patch TD SCH (10:55)
[2020-11-23] MEDS: hydrALAZINE 20 MG/ML VIAL SLOW IVP PRN (23:23)
[2020-11-24] MEDS: Lorazepam 2 MG/ML VIAL SLOW IVP PRN ×6 (00:24→23:46)
[2020-11-24] MEDS: Fentanyl 100 MCG/2 ML VIAL SLOW IVP PRN ×3 (00:59→07:41)
[2020-11-24] MEDS: Morphine 4 MG/ML VIAL SLOW IVP PRN ×2 (02:51→17:10)
[2020-11-24 04:11] LABS: #Eosinphils 0.5 thou/uL (0.0-0.7); #Monocytes 0.9 thou/uL (0.11-0.59); #Neutrophils 10.3 thou/uL (1.40-6.50); %Eosinophils 3.2 % (0.0-10.0); %Lymphocytes 20.5 % (21.0-51.0); %Monocytes 6.4 % (0.0-10.0); %Neutrophils 69.9 % (42.0-75.0); Hemoglobin 9.7 g/dL (12.0-16.0); Mean Corpuscular HGB CONC 33.7 g/dL (32.0-36.0); Mean Corpuscular Hemoglobin 30.3 pg (27.0-31.0); Mean Corpuscular Volume 89.8 fL (78.0-98.0); Mean Platelet Volume 9.8 fL (7.4-10.4); Platelet Count 278 thou/uL (130-400); RBC Distribution Width 13.7 % (11.5-14.5); Red Blood Cell (RBC) Count 3.21 mill/uL (4.20-5.40); White Blood Cell (WBC) Count 14.7 thou/uL (4.8-10.8)
[2020-11-24 04:24] LABS: Anion Gap 14 mmol/L (10-20); BUN (Urea Nitrogen) 20 mg/dL (7.0-18.7); Calc. Creatinine Clearance 108 mL/min (70-130); Calcium 8.2 mg/dL (7.8-10.44); Carbon Dioxide 21 mmol/L (22-29); Chloride 111 mmol/L (98-107); Glucose 102 mg/dL (70-105); Potassium 3.4 mmol/L (3.5-5.1); Sodium 143 mmol/L (136-145)
[2020-11-24] MEDS ORDERED: Vecuronium 10 MG VIAL IVP SCH (05:00)
[2020-11-24] MEDS ORDERED: Midazolam HCl 2 mg/2 ml Vial SLOW IVP SCH ×4 (05:00→11:36)
[2020-11-24] MEDS ORDERED: CEFAZOLIN 1 GM VIAL SLOW IVP SCH (05:00)
[2020-11-24] MEDS ORDERED: CEFAZOLIN 2 GM, Admixture Fee 1 EACH in Sodium Chloride 0.9% 100 ML IVPB SCH (05:00)
[2020-11-24] MEDS ORDERED: Lidocaine 1% w/Epinephrine 1:100K 20 ML VIAL IJ SCH (05:00)
[2020-11-24] MEDS: Dextrose 5% in Water 1,000 ML IV SCH (05:37)
[2020-11-24 07:29] LABS: Actual Bicarbonate (HCO3a) 32.4 mEq/L (22-28); Base Excess (BEa) 5.7 mEq/L (-2.0 to +3.0); Calcium, Ionized (arterial) 1.09 mmol/L (1.12-1.30); Carboxyhemoglobin (COHb) 0.8 gm% (0.0-3.0); Hemoglobin (Hb) 12.1 g/dL (12.0-16.0); Potassium - ABG Lab 4.36 mmol/L (3.70-5.30); pH, Arterial 7.37 (7.35-7.45)
[2020-11-24] MEDS ORDERED: Potassium Chloride 20 MEQ in Premix Bag 1 BAG IVPB SCH (07:30)
[2020-11-24 07:34] LABS: Puncture Site LBA
[2020-11-24] MEDS: Pantoprazole 40 MG VIAL IVP SCH ×2 (09:05→20:26)
[2020-11-24] MEDS: Amlodipine 5 MG TAB PER TUBE SCH (09:06)
[2020-11-24] MEDS: Amoxicillin/Potassium Clav 875 MG TAB PO SCH ×2 (09:06→20:26)
[2020-11-24] MEDS: fentaNYL 50 mcg/hour Patch TD SCH (09:44)
[2020-11-24] MEDS ORDERED: Midazolam HCl 2 mg/2 ml Vial ONE ×2 (11:01→11:24)
[2020-11-24] MEDS ORDERED: Fentanyl 100 MCG/2 ML VIAL SLOW IVP SCH ×2 (11:05→11:15)
[2020-11-24] MEDS: hydrALAZINE 20 MG/ML VIAL SLOW IVP PRN (16:53)
[2020-11-24] MEDS: Acetaminophen 650 MG/20.3 ML UDCUP PER TUBE PRN ×2 (17:37→23:36)
[2020-11-24] MEDS ORDERED: Fentanyl CADD 100 ML ONE (17:41)
[2020-11-25] MEDS: Dextrose 5% in Water 1,000 ML IV SCH (02:04)
[2020-11-25 05:00] LABS: #Eosinphils 0.2 thou/uL (0.0-0.7); #Monocytes 0.9 thou/uL (0.11-0.59); #Neutrophils 13.1 thou/uL (1.40-6.50); %Basophils 0.3 % (0.0-1.0); %Eosinophils 1.5 % (0.0-10.0); %Lymphocytes 12.5 % (21.0-51.0); %Monocytes 5.5 % (0.0-10.0); %Neutrophils 80.3 % (42.0-75.0); Hemoglobin 8.7 g/dL (12.0-16.0); Mean Corpuscular Hemoglobin 29.6 pg (27.0-31.0); Mean Corpuscular Volume 89.5 fL (78.0-98.0); Mean Platelet Volume 9.4 fL (7.4-10.4); Platelet Count 299 thou/uL (130-400); RBC Distribution Width 13.9 % (11.5-14.5); Red Blood Cell (RBC) Count 2.93 mill/uL (4.20-5.40); White Blood Cell (WBC) Count 16.3 thou/uL (4.8-10.8)
[2020-11-25 05:37] LABS: Anion Gap 14 mmol/L (10-20); BUN (Urea Nitrogen) 17 mg/dL (7.0-18.7); Calc. Creatinine Clearance 100 mL/min (70-130); Calcium 8.5 mg/dL (7.8-10.44); Carbon Dioxide 22 mmol/L (22-29); Chloride 109 mmol/L (98-107); Glucose 99 mg/dL (70-105); Sodium 141 mmol/L (136-145)
[2020-11-25 07:11] LABS: CO2 Tension 28.6 mmHg (35.0-45.0); Calcium, Ionized (arterial) 1.17 mmol/L (1.12-1.30); Carboxyhemoglobin (COHb) 0.3 gm% (0.0-3.0); Hemoglobin (Hb) 9.5 g/dL (12.0-16.0); O2 Tension (PaO2), arterial 101.4 mmHg (80.0-100.0); Potassium - ABG Lab 3.37 mmol/L (3.70-5.30); pH, Arterial 7.46 (7.35-7.45)
[2020-11-25 07:20] LABS: Puncture Site RRA
[2020-11-25] MEDS: Amlodipine 5 MG TAB PER TUBE SCH (10:03)
[2020-11-25] MEDS: Pantoprazole 40 MG GRANULES PACKET PER TUBE SCH ×2 (10:04→20:58)
[2020-11-25] MEDS: Amoxicillin/Potassium Clav 875 MG TAB PO SCH (10:04)
[2020-11-25] MEDS ORDERED: MEROPENEM 1 GM/50 ML 1 GM in Premix Bag 1 BAG IVPB SCH (22:00)
[2020-11-25] MEDS ORDERED: Meropenem 2 GM in Admixture Fee 1 EACH IVPB SCH (22:00)
[2020-11-26 04:51] LABS: #Eosinphils 0.2 thou/uL (0.0-0.7); #Lymphocytes 2.3 thou/uL (1.20-3.40); #Monocytes 0.8 thou/uL (0.11-0.59); #Neutrophils 10.8 thou/uL (1.40-6.50); %Basophils 0.3 % (0.0-1.0); %Eosinophils 1.6 % (0.0-10.0); %Lymphocytes 16.1 % (21.0-51.0); %Monocytes 5.6 % (0.0-10.0); %Neutrophils 76.4 % (42.0-75.0); Hemoglobin 8.8 g/dL (12.0-16.0); Mean Corpuscular HGB CONC 33.2 g/dL (32.0-36.0); Mean Corpuscular Volume 90.3 fL (78.0-98.0); Mean Platelet Volume 9.8 fL (7.4-10.4); Platelet Count 286 thou/uL (130-400); RBC Distribution Width 14.2 % (11.5-14.5); Red Blood Cell (RBC) Count 2.93 mill/uL (4.20-5.40); White Blood Cell (WBC) Count 14.1 thou/uL (4.8-10.8)
[2020-11-26] MEDS: MEROPENEM 1 GM/50 ML 1 GM in Premix Bag 1 BAG IVPB SCH ×3 (05:10→20:58)
[2020-11-26 05:16] LABS: Anion Gap 14 mmol/L (10-20); BUN (Urea Nitrogen) 15 mg/dL (7.0-18.7); Calc. Creatinine Clearance 99 mL/min (70-130); Calcium 8.2 mg/dL (7.8-10.44); Carbon Dioxide 24 mmol/L (22-29); Chloride 107 mmol/L (98-107); Glucose 108 mg/dL (70-105); Potassium 3.6 mmol/L (3.5-5.1); Sodium 141 mmol/L (136-145)
[2020-11-26] MEDS: Lorazepam 2 MG/ML VIAL SLOW IVP PRN ×5 (07:04→19:41)
[2020-11-26 07:56] LABS: Actual Bicarbonate (HCO3a) 21.5 mEq/L (22-28); Base Excess (BEa) -1.4 mEq/L (-2.0 to +3.0); CO2 Tension 30.3 mmHg (35.0-45.0); Calcium, Ionized (arterial) 1.15 mmol/L (1.12-1.30); Carboxyhemoglobin (COHb) 0.3 gm% (0.0-3.0); Hemoglobin (Hb) 11.1 g/dL (12.0-16.0); O2 Tension (PaO2), arterial 107.4 mmHg (80.0-100.0); Potassium - ABG Lab 3.56 mmol/L (3.70-5.30); pH, Arterial 7.47 (7.35-7.45)
[2020-11-26 08:02] LABS: Puncture Site RRA
[2020-11-26 08:03] LABS: ALV-art Gradient 139.925 mmHg (0-20)
[2020-11-26] MEDS: Acetaminophen 650 MG/20.3 ML UDCUP PER TUBE PRN (10:18)
[2020-11-26] MEDS: Pantoprazole 40 MG GRANULES PACKET PER TUBE SCH ×2 (10:19→20:11)
[2020-11-26] MEDS: Amlodipine 5 MG TAB PER TUBE SCH (10:19)
[2020-11-26] MEDS: Scopolamine 1.5 mg/72 hour Patch TD SCH (10:20)
[2020-11-26] MEDS: Morphine 4 MG/ML VIAL SLOW IVP PRN ×3 (13:31→19:41)
[2020-11-27] MEDS: Morphine 4 MG/ML VIAL SLOW IVP PRN ×4 (05:26→22:00)
[2020-11-27] MEDS: Lorazepam 2 MG/ML VIAL SLOW IVP PRN ×4 (05:27→22:01)
[2020-11-27] MEDS: MEROPENEM 1 GM/50 ML 1 GM in Premix Bag 1 BAG IVPB SCH ×3 (05:27→21:55)
[2020-11-27 07:39] LABS: Base Excess (BEa) -1.3 mEq/L (-2.0 to +3.0); Calcium, Ionized (arterial) 1.17 mmol/L (1.12-1.30); Carboxyhemoglobin (COHb) 0.3 gm% (0.0-3.0); Hemoglobin (Hb) 8.4 g/dL (12.0-16.0); O2 Tension (PaO2), arterial 85.6 mmHg (80.0-100.0); Potassium - ABG Lab 3.44 mmol/L (3.70-5.30); pH, Arterial 7.47 (7.35-7.45)
[2020-11-27] MEDS: Pantoprazole 40 MG GRANULES PACKET PER TUBE SCH ×2 (08:15→21:55)
[2020-11-27] MEDS: Amlodipine 5 MG TAB PER TUBE SCH ×2 (08:15→12:01)
[2020-11-27 08:18] LABS: Puncture Site RRA
[2020-11-28 04:36] LABS: #Eosinphils 0.3 thou/uL (0.0-0.7); #Lymphocytes 2.4 thou/uL (1.20-3.40); #Monocytes 0.8 thou/uL (0.11-0.59); #Neutrophils 7.3 thou/uL (1.40-6.50); %Basophils 0.2 % (0.0-1.0); %Eosinophils 2.8 % (0.0-10.0); %Lymphocytes 22.2 % (21.0-51.0); %Monocytes 7.8 % (0.0-10.0); %Neutrophils 67.1 % (42.0-75.0); Hemoglobin 7.5 g/dL (12.0-16.0); Mean Corpuscular HGB CONC 31.7 g/dL (32.0-36.0); Mean Corpuscular Hemoglobin 29.1 pg (27.0-31.0); Mean Corpuscular Volume 91.9 fL (78.0-98.0); Mean Platelet Volume 9.9 fL (7.4-10.4); Platelet Count 326 thou/uL (130-400); RBC Distribution Width 14.2 % (11.5-14.5); Red Blood Cell (RBC) Count 2.58 mill/uL (4.20-5.40); White Blood Cell (WBC) Count 10.8 thou/uL (4.8-10.8)
[2020-11-28 05:10] LABS: Anion Gap 13 mmol/L (10-20); BUN (Urea Nitrogen) 20 mg/dL (7.0-18.7); Calc. Creatinine Clearance 99 mL/min (70-130); Calcium 8.2 mg/dL (7.8-10.44); Carbon Dioxide 25 mmol/L (22-29); Chloride 110 mmol/L (98-107); Glucose 102 mg/dL (70-105); Potassium 4.2 mmol/L (3.5-5.1); Sodium 144 mmol/L (136-145)
[2020-11-28] MEDS: Lorazepam 2 MG/ML VIAL SLOW IVP PRN ×4 (06:57→20:09)
[2020-11-28] MEDS: MEROPENEM 1 GM/50 ML 1 GM in Premix Bag 1 BAG IVPB SCH ×3 (06:57→21:20)
[2020-11-28 07:33] LABS: Actual Bicarbonate (HCO3a) 24.4 mEq/L (22-28); Base Excess (BEa) 0.5 mEq/L (-2.0 to +3.0); CO2 Tension 36.1 mmHg (35.0-45.0); Calcium, Ionized (arterial) 1.18 mmol/L (1.12-1.30); Carboxyhemoglobin (COHb) 0.3 gm% (0.0-3.0); Hemoglobin (Hb) 9.9 g/dL (12.0-16.0); O2 Tension (PaO2), arterial 107.8 mmHg (80.0-100.0); Potassium - ABG Lab 4.03 mmol/L (3.70-5.30); pH, Arterial 7.45 (7.35-7.45)
[2020-11-28 07:51] LABS: Puncture Site RRA
[2020-11-28 07:52] LABS: ALV-art Gradient 132.275 mmHg (0-20)
[2020-11-28] MEDS: Amlodipine 5 MG TAB PER TUBE SCH (08:23)
[2020-11-28] MEDS: Acetaminophen 650 MG/20.3 ML UDCUP PER TUBE PRN (08:23)
[2020-11-28] MEDS: Pantoprazole 40 MG GRANULES PACKET PER TUBE SCH ×2 (08:23→20:10)
[2020-11-28] MEDS: Morphine 4 MG/ML VIAL SLOW IVP PRN ×3 (08:39→20:09)
[2020-11-29] MEDS: Morphine 4 MG/ML VIAL SLOW IVP PRN ×7 (00:06→23:56)
[2020-11-29] MEDS: Lorazepam 2 MG/ML VIAL SLOW IVP PRN ×7 (00:06→19:57)
[2020-11-29 04:55] LABS: #Basophils 0.1 thou/uL (0.0-0.2); #Eosinphils 0.3 thou/uL (0.0-0.7); #Lymphocytes 1.7 thou/uL (1.20-3.40); #Monocytes 0.7 thou/uL (0.11-0.59); #Neutrophils 9.5 thou/uL (1.40-6.50); %Basophils 0.9 % (0.0-1.0); %Eosinophils 2.3 % (0.0-10.0); %Lymphocytes 13.7 % (21.0-51.0); %Monocytes 5.9 % (0.0-10.0); %Neutrophils 77.2 % (42.0-75.0); Hemoglobin 8.9 g/dL (12.0-16.0); Mean Corpuscular HGB CONC 31.4 g/dL (32.0-36.0); Mean Corpuscular Hemoglobin 28.7 pg (27.0-31.0); Mean Corpuscular Volume 91.4 fL (78.0-98.0); Mean Platelet Volume 9.9 fL (7.4-10.4); Platelet Count 323 thou/uL (130-400); Red Blood Cell (RBC) Count 3.09 mill/uL (4.20-5.40); White Blood Cell (WBC) Count 12.4 thou/uL (4.8-10.8)
[2020-11-29 05:18] LABS: Anion Gap 13 mmol/L (10-20); BUN (Urea Nitrogen) 20 mg/dL (7.0-18.7); Calc. Creatinine Clearance 100 mL/min (70-130); Calcium 8.4 mg/dL (7.8-10.44); Carbon Dioxide 25 mmol/L (22-29); Chloride 108 mmol/L (98-107); Glucose 114 mg/dL (70-105); Potassium 4.4 mmol/L (3.5-5.1); Sodium 142 mmol/L (136-145)
[2020-11-29] MEDS: Acetaminophen 650 MG/20.3 ML UDCUP PER TUBE PRN ×2 (05:18→11:20)
[2020-11-29] MEDS: MEROPENEM 1 GM/50 ML 1 GM in Premix Bag 1 BAG IVPB SCH ×3 (05:42→22:03)
[2020-11-29] MEDS: Amlodipine 5 MG TAB PER TUBE SCH (08:19)
[2020-11-29] MEDS: Pantoprazole 40 MG GRANULES PACKET PER TUBE SCH ×2 (08:20→19:56)
[2020-11-29] MEDS: Scopolamine 1.5 mg/72 hour Patch TD SCH (08:20)
[2020-11-29] MEDS: Fentanyl 100 MCG/2 ML VIAL SLOW IVP PRN (09:36)
[2020-11-29] MEDS: Propofol 1,000 MG/100 ML VIAL IV PRN ×2 (20:01→23:56)
[2020-11-30] MEDS: Lorazepam 2 MG/ML VIAL SLOW IVP PRN ×7 (00:43→23:17)
[2020-11-30] MEDS: Acetaminophen 650 MG/20.3 ML UDCUP PER TUBE PRN (00:46)
[2020-11-30 04:19] LABS: #Eosinphils 0.4 thou/uL (0.0-0.7); #Lymphocytes 2.8 thou/uL (1.20-3.40); #Monocytes 0.9 thou/uL (0.11-0.59); #Neutrophils 7.3 thou/uL (1.40-6.50); %Basophils 0.2 % (0.0-1.0); %Eosinophils 3.2 % (0.0-10.0); %Lymphocytes 24.3 % (21.0-51.0); %Monocytes 7.8 % (0.0-10.0); %Neutrophils 64.5 % (42.0-75.0); Hemoglobin 7.5 g/dL (12.0-16.0); Mean Corpuscular HGB CONC 32.6 g/dL (32.0-36.0); Mean Corpuscular Hemoglobin 29.8 pg (27.0-31.0); Mean Corpuscular Volume 91.5 fL (78.0-98.0); Mean Platelet Volume 9.7 fL (7.4-10.4); Platelet Count 307 thou/uL (130-400); Red Blood Cell (RBC) Count 2.53 mill/uL (4.20-5.40); White Blood Cell (WBC) Count 11.3 thou/uL (4.8-10.8)
[2020-11-30 04:36] LABS: ALT (SGPT) 24 U/L (8-55); AST (SGOT) 22 U/L (5-34); Albumin 2.6 g/dL (3.5-5.0); Alkaline Phosphatase 66 U/L (40-110); Anion Gap 15 mmol/L (10-20); BUN (Urea Nitrogen) 22 mg/dL (7.0-18.7); Bilirubin, Total 0.4 mg/dL (0.2-1.2); Calc. Creatinine Clearance 102 mL/min (70-130); Calcium 8.6 mg/dL (7.8-10.44); Carbon Dioxide 25 mmol/L (22-29); Chloride 108 mmol/L (98-107); Globulin 3.1 g/dL (2.4-3.5); Glucose 102 mg/dL (70-105); Potassium 4.6 mmol/L (3.5-5.1); Protein, Total 5.7 g/dL (6.0-8.3); Sodium 143 mmol/L (136-145)
[2020-11-30] MEDS: MEROPENEM 1 GM/50 ML 1 GM in Premix Bag 1 BAG IVPB SCH ×3 (05:27→21:24)
[2020-11-30 07:45] LABS: Actual Bicarbonate (HCO3a) 25.2 mEq/L (22-28); Base Excess (BEa) 0.6 mEq/L (-2.0 to +3.0); CO2 Tension 39.8 mmHg (35.0-45.0); Calcium, Ionized (arterial) 1.31 mmol/L (1.12-1.30); Carboxyhemoglobin (COHb) 1.5 gm% (0.0-3.0); Hemoglobin (Hb) 6.7 g/dL (12.0-16.0); Potassium - ABG Lab 4.66 mmol/L (3.70-5.30); pH, Arterial 7.42 (7.35-7.45)
[2020-11-30 08:15] LABS: O2 Tension (PaO2), arterial 45.2 mmHg (80.0-100.0)
[2020-11-30 08:16] LABS: Puncture Site RRA
[2020-11-30] MEDS: Pantoprazole 40 MG GRANULES PACKET PER TUBE SCH ×2 (08:16→20:17)
[2020-11-30] MEDS: Amlodipine 5 MG TAB PER TUBE SCH (08:16)
[2020-11-30] MEDS: Morphine 4 MG/ML VIAL SLOW IVP PRN ×6 (08:17→23:17)
[2020-11-30] MEDS: Propofol 1,000 MG/100 ML VIAL IV PRN ×2 (10:45→20:17)
[2020-12-01] MEDS: Acetaminophen 650 MG/20.3 ML UDCUP PER TUBE PRN ×2 (00:20→15:31)
[2020-12-01 04:05] LABS: #Eosinphils 0.3 thou/uL (0.0-0.7); #Lymphocytes 2.3 thou/uL (1.20-3.40); #Monocytes 0.8 thou/uL (0.11-0.59); #Neutrophils 6.6 thou/uL (1.40-6.50); %Basophils 0.5 % (0.0-1.0); %Eosinophils 3.4 % (0.0-10.0); %Lymphocytes 22.6 % (21.0-51.0); %Monocytes 8.2 % (0.0-10.0); %Neutrophils 65.3 % (42.0-75.0); Hemoglobin 8.5 g/dL (12.0-16.0); Mean Corpuscular HGB CONC 33.2 g/dL (32.0-36.0); Mean Corpuscular Hemoglobin 30.2 pg (27.0-31.0); Mean Corpuscular Volume 90.9 fL (78.0-98.0); Platelet Count 332 thou/uL (130-400); RBC Distribution Width 14.2 % (11.5-14.5); Red Blood Cell (RBC) Count 2.81 mill/uL (4.20-5.40); White Blood Cell (WBC) Count 10.2 thou/uL (4.8-10.8)
[2020-12-01 04:27] LABS: Anion Gap 13 mmol/L (10-20); BUN (Urea Nitrogen) 28 mg/dL (7.0-18.7); Calc. Creatinine Clearance 88 mL/min (70-130); Calcium 8.7 mg/dL (7.8-10.44); Carbon Dioxide 25 mmol/L (22-29); Chloride 107 mmol/L (98-107); Glucose 104 mg/dL (70-105); Potassium 4.8 mmol/L (3.5-5.1); Sodium 140 mmol/L (136-145)
[2020-12-01] MEDS: MEROPENEM 1 GM/50 ML 1 GM in Premix Bag 1 BAG IVPB SCH ×3 (05:25→20:55)
[2020-12-01] MEDS: Lorazepam 2 MG/ML VIAL SLOW IVP PRN ×6 (06:40→21:10)
[2020-12-01] MEDS: Morphine 4 MG/ML VIAL SLOW IVP PRN ×4 (09:04→19:30)
[2020-12-01] MEDS: Propofol 1,000 MG/100 ML VIAL IV PRN (09:04)
[2020-12-01] MEDS: Amlodipine 5 MG TAB PER TUBE SCH (09:05)
[2020-12-01] MEDS: Pantoprazole 40 MG GRANULES PACKET PER TUBE SCH ×2 (09:06→20:53)
[2020-12-01] MEDS: hydrALAZINE 20 MG/ML VIAL SLOW IVP PRN (15:30)
[2020-12-02] MEDS: Lorazepam 2 MG/ML VIAL SLOW IVP PRN ×6 (03:24→19:44)
[2020-12-02] MEDS: hydrALAZINE 20 MG/ML VIAL SLOW IVP PRN (03:24)
[2020-12-02 04:38] LABS: Anion Gap 18 mmol/L (10-20); BUN (Urea Nitrogen) 29 mg/dL (7.0-18.7); Calc. Creatinine Clearance 86 mL/min (70-130); Carbon Dioxide 19 mmol/L (22-29); Chloride 107 mmol/L (98-107); Glucose 112 mg/dL (70-105); Potassium 4.8 mmol/L (3.5-5.1); Sodium 139 mmol/L (136-145)
[2020-12-02] MEDS: Acetaminophen 650 MG/20.3 ML UDCUP PER TUBE PRN ×2 (04:43→16:06)
[2020-12-02] MEDS: Morphine 4 MG/ML VIAL SLOW IVP PRN ×5 (05:36→19:44)
[2020-12-02] MEDS: MEROPENEM 1 GM/50 ML 1 GM in Premix Bag 1 BAG IVPB SCH ×2 (05:36→15:00)
[2020-12-02 07:42] LABS: Band 15 % (5-11); Eosinophils 1 % (0-10); Hemoglobin 9.7 g/dL (12.0-16.0); Lymphocytes 16 % (21-51); MDiff Complete? YES; Mean Corpuscular HGB CONC 32.7 g/dL (32.0-36.0); Mean Corpuscular Volume 88.9 fL (78.0-98.0); Mean Platelet Volume 10.3 fL (7.4-10.4); Monocytes 7 % (0-10); Neutrophil 60 % (42-75); Platelet Count 382 thou/uL (130-400); Platelet Morphology Comment Appears Adequate; Polychromasia SLIGHT = 2-3 cells (100X) (0-2/hpf); RBC Distribution Width 14.2 % (11.5-14.5); Red Blood Cell (RBC) Count 3.33 mill/uL (4.20-5.40); White Blood Cell (WBC) Count 11.7 thou/uL (4.8-10.8)
[2020-12-02] MEDS: Pantoprazole 40 MG GRANULES PACKET PER TUBE SCH ×2 (08:55→20:20)
[2020-12-02] MEDS: Amlodipine 5 MG TAB PER TUBE SCH (08:55)
[2020-12-02] MEDS: Scopolamine 1.5 mg/72 hour Patch TD SCH (08:55)
[2020-12-02 18:50] LABS: Bilirubin Negative (Negative); Blood, Urine 2+ (Negative); Clarity Clear (Clear); Glucose, Urine (Dipstick) Normal (Negative); Ketone, Urine Trace mg/dL (Negative); Leukocyte 25 Leu/uL (Negative); Nitrite Negative (Negative); Protein, Urine (Dipstick) 70 mg/dL (Neg-Trace); Specific Gravity, Urine 1.027 (1.002-1.036); Squamous Epithelial 0-3 HPF (0-3); Urobilinogen 3 mg/dL (Less than 2); pH, Urine 6.5 (5.0-9.0)
[2020-12-02 18:51] LABS: Bacteria/HPF 1+ HPF (None Seen); Urine Culture Reflex Yes Yes
[2020-12-02] MEDS: Meropenem 1 GM in Sodium Chloride 0.9% 100 ML IVPB SCH (22:11)
[2020-12-03] MEDS: Acetaminophen 650 MG/20.3 ML UDCUP PER TUBE PRN ×3 (00:08→15:32)
[2020-12-03] MEDS: Lorazepam 2 MG/ML VIAL SLOW IVP PRN ×8 (00:08→23:19)
[2020-12-03 04:29] LABS: #Basophils 0.1 thou/uL (0.0-0.2); #Eosinphils 0.3 thou/uL (0.0-0.7); #Lymphocytes 2.1 thou/uL (1.20-3.40); #Monocytes 1.1 thou/uL (0.11-0.59); #Neutrophils 6.5 thou/uL (1.40-6.50); %Basophils 0.5 % (0.0-1.0); %Eosinophils 3.4 % (0.0-10.0); %Monocytes 11.1 % (0.0-10.0); Hemoglobin 10.1 g/dL (12.0-16.0); Mean Corpuscular HGB CONC 31.9 g/dL (32.0-36.0); Mean Corpuscular Hemoglobin 28.6 pg (27.0-31.0); Mean Corpuscular Volume 89.9 fL (78.0-98.0); Mean Platelet Volume 9.6 fL (7.4-10.4); Platelet Count 359 thou/uL (130-400); RBC Distribution Width 14.5 % (11.5-14.5); Red Blood Cell (RBC) Count 3.52 mill/uL (4.20-5.40); White Blood Cell (WBC) Count 10.2 thou/uL (4.8-10.8)
[2020-12-03 04:51] LABS: Chloride 108 mmol/L (98-107); Potassium 4.7 mmol/L (3.5-5.1); Sodium 140 mmol/L (136-145)
[2020-12-03 04:52] LABS: Anion Gap 15 mmol/L (10-20); BUN (Urea Nitrogen) 39 mg/dL (7.0-18.7); Calc. Creatinine Clearance 78 mL/min (70-130); Calcium 9.1 mg/dL (7.8-10.44); Carbon Dioxide 22 mmol/L (22-29); Glucose 105 mg/dL (70-105)
[2020-12-03] MEDS: Morphine 4 MG/ML VIAL SLOW IVP PRN ×6 (05:06→23:18)
[2020-12-03] MEDS: Meropenem 1 GM in Sodium Chloride 0.9% 100 ML IVPB SCH ×2 (05:25→15:00)
[2020-12-03] MEDS: Amlodipine 5 MG TAB PER TUBE SCH (08:40)
[2020-12-03] MEDS: Pantoprazole 40 MG GRANULES PACKET PER TUBE SCH ×2 (08:40→21:12)
[2020-12-03] MEDS ORDERED: Lactated Ringer's 500 ML IV SCH (11:15)
[2020-12-03] MEDS: MEROPENEM 1 GM/50 ML 1 GM in Premix Bag 1 BAG IVPB SCH (21:12)
[2020-12-04 03:38] LABS: #Basophils 0.1 thou/uL (0.0-0.2); #Eosinphils 0.4 thou/uL (0.0-0.7); #Monocytes 0.9 thou/uL (0.11-0.59); #Neutrophils 6.9 thou/uL (1.40-6.50); %Basophils 0.7 % (0.0-1.0); %Eosinophils 3.8 % (0.0-10.0); %Lymphocytes 19.8 % (21.0-51.0); %Monocytes 8.4 % (0.0-10.0); %Neutrophils 67.3 % (42.0-75.0); Hemoglobin 9.5 g/dL (12.0-16.0); Mean Corpuscular HGB CONC 32.7 g/dL (32.0-36.0); Mean Corpuscular Hemoglobin 29.5 pg (27.0-31.0); Mean Corpuscular Volume 90.2 fL (78.0-98.0); Mean Platelet Volume 9.5 fL (7.4-10.4); Platelet Count 340 thou/uL (130-400); RBC Distribution Width 14.4 % (11.5-14.5); Red Blood Cell (RBC) Count 3.21 mill/uL (4.20-5.40); White Blood Cell (WBC) Count 10.2 thou/uL (4.8-10.8)
[2020-12-04 04:15] LABS: Anion Gap 14 mmol/L (10-20); BUN (Urea Nitrogen) 38 mg/dL (7.0-18.7); Calc. Creatinine Clearance 90 mL/min (70-130); Calcium 8.8 mg/dL (7.8-10.44); Carbon Dioxide 21 mmol/L (22-29); Chloride 110 mmol/L (98-107); Glucose 103 mg/dL (70-105); Potassium 4.7 mmol/L (3.5-5.1); Sodium 140 mmol/L (136-145)
[2020-12-04] MEDS: Lorazepam 2 MG/ML VIAL SLOW IVP PRN ×3 (06:00→18:05)
[2020-12-04] MEDS: Morphine 4 MG/ML VIAL SLOW IVP PRN ×3 (06:19→18:02)
[2020-12-04] MEDS: MEROPENEM 1 GM/50 ML 1 GM in Premix Bag 1 BAG IVPB SCH ×3 (06:44→21:19)
[2020-12-04] MEDS: Pantoprazole 40 MG GRANULES PACKET PER TUBE SCH ×2 (10:07→21:19)
[2020-12-04] MEDS: Amlodipine 5 MG TAB PER TUBE SCH (10:08)
[2020-12-05] MEDS: Lorazepam 2 MG/ML VIAL SLOW IVP PRN ×3 (01:11→22:41)
[2020-12-05] MEDS: Morphine 4 MG/ML VIAL SLOW IVP PRN ×3 (01:11→22:40)
[2020-12-05] MEDS: Acetaminophen 650 MG/20.3 ML UDCUP PER TUBE PRN ×2 (03:21→20:35)
[2020-12-05 04:09] LABS: #Eosinphils 0.5 thou/uL (0.0-0.7); #Lymphocytes 2.1 thou/uL (1.20-3.40); #Monocytes 0.9 thou/uL (0.11-0.59); #Neutrophils 8.2 thou/uL (1.40-6.50); %Basophils 0.4 % (0.0-1.0); %Eosinophils 3.9 % (0.0-10.0); %Lymphocytes 17.8 % (21.0-51.0); %Monocytes 7.7 % (0.0-10.0); %Neutrophils 70.3 % (42.0-75.0); Hemoglobin 9.3 g/dL (12.0-16.0); Mean Corpuscular HGB CONC 32.6 g/dL (32.0-36.0); Mean Corpuscular Hemoglobin 29.3 pg (27.0-31.0); Mean Corpuscular Volume 89.8 fL (78.0-98.0); Mean Platelet Volume 9.7 fL (7.4-10.4); Platelet Count 309 thou/uL (130-400); RBC Distribution Width 14.5 % (11.5-14.5); Red Blood Cell (RBC) Count 3.16 mill/uL (4.20-5.40); White Blood Cell (WBC) Count 11.6 thou/uL (4.8-10.8)
[2020-12-05 04:32] LABS: Anion Gap 17 mmol/L (10-20); BUN (Urea Nitrogen) 33 mg/dL (7.0-18.7); Calc. Creatinine Clearance 91 mL/min (70-130); Carbon Dioxide 20 mmol/L (22-29); Chloride 108 mmol/L (98-107); Glucose 106 mg/dL (70-105); Potassium 4.7 mmol/L (3.5-5.1); Sodium 140 mmol/L (136-145)
[2020-12-05] MEDS: MEROPENEM 1 GM/50 ML 1 GM in Premix Bag 1 BAG IVPB SCH ×3 (06:39→20:32)
[2020-12-05] MEDS: Pantoprazole 40 MG GRANULES PACKET PER TUBE SCH ×2 (09:58→20:32)
[2020-12-05] MEDS: Scopolamine 1.5 mg/72 hour Patch TD SCH (09:58)
[2020-12-05] MEDS: Amlodipine 5 MG TAB PER TUBE SCH (09:58)
[2020-12-06 04:01] LABS: #Eosinphils 0.6 thou/uL (0.0-0.7); #Lymphocytes 2.1 thou/uL (1.20-3.40); #Monocytes 0.8 thou/uL (0.11-0.59); %Basophils 0.4 % (0.0-1.0); %Eosinophils 6.6 % (0.0-10.0); %Lymphocytes 24.3 % (21.0-51.0); %Monocytes 9.8 % (0.0-10.0); Hemoglobin 8.5 g/dL (12.0-16.0); Mean Corpuscular HGB CONC 32.9 g/dL (32.0-36.0); Mean Corpuscular Hemoglobin 29.4 pg (27.0-31.0); Mean Corpuscular Volume 89.4 fL (78.0-98.0); Mean Platelet Volume 9.6 fL (7.4-10.4); Platelet Count 289 thou/uL (130-400); RBC Distribution Width 14.4 % (11.5-14.5); White Blood Cell (WBC) Count 8.5 thou/uL (4.8-10.8)
[2020-12-06 04:15] LABS: Anion Gap 12 mmol/L (10-20); BUN (Urea Nitrogen) 30 mg/dL (7.0-18.7); Calc. Creatinine Clearance 89 mL/min (70-130); Calcium 8.8 mg/dL (7.8-10.44); Carbon Dioxide 23 mmol/L (22-29); Chloride 109 mmol/L (98-107); Glucose 114 mg/dL (70-105); Potassium 4.2 mmol/L (3.5-5.1); Sodium 140 mmol/L (136-145)
[2020-12-06] MEDS: Morphine 4 MG/ML VIAL SLOW IVP PRN ×3 (07:43→20:56)
[2020-12-06] MEDS: Lorazepam 2 MG/ML VIAL SLOW IVP PRN ×3 (07:43→20:57)
[2020-12-06] MEDS: Pantoprazole 40 MG GRANULES PACKET PER TUBE SCH ×2 (08:05→22:36)
[2020-12-06] MEDS: Amlodipine 5 MG TAB PER TUBE SCH (08:05)
[2020-12-06] MEDS: Vancomycin HCl 1.5 GM in Sodium Chloride 0.9% 250 ML 300 ML IVPB SCH (11:31)
[2020-12-06] MEDS ORDERED: Sodium Chloride 0.9% 1,000 ML IV SCH (22:45)
[2020-12-07 00:26] LABS: Anion Gap 12 mmol/L (10-20); BUN (Urea Nitrogen) 33 mg/dL (7.0-18.7); Calc. Creatinine Clearance 96 mL/min (70-130); Calcium 8.5 mg/dL (7.8-10.44); Carbon Dioxide 22 mmol/L (22-29); Chloride 111 mmol/L (98-107); Glucose 103 mg/dL (70-105); Potassium 4.4 mmol/L (3.5-5.1); Sodium 141 mmol/L (136-145)
[2020-12-07 00:30] LABS: Hemoglobin 7.7 g/dL (12.0-16.0); Mean Corpuscular Hemoglobin 28.3 pg (27.0-31.0); Mean Corpuscular Volume 88.6 fL (78.0-98.0); Mean Platelet Volume 8.9 fL (7.4-10.4); Platelet Count 302 thou/uL (130-400); RBC Distribution Width 14.6 % (11.5-14.5); Red Blood Cell (RBC) Count 2.72 mill/uL (4.20-5.40); White Blood Cell (WBC) Count 7.6 thou/uL (4.8-10.8)
[2020-12-07] MEDS ORDERED: Norepinephrine 8 MG in Dextrose 5% in Water 242 ML IVPB PRN (00:30)
[2020-12-07] MEDS ORDERED: Sodium Chloride 0.9% 1,000 ML IV SCH (00:30)
[2020-12-07] MEDS: Lorazepam 2 MG/ML VIAL SLOW IVP PRN (00:56)
[2020-12-07] MEDS: Morphine 4 MG/ML VIAL SLOW IVP PRN (00:56)
[2020-12-07 00:57] LABS: Band 10 % (5-11); Eosinophils 6 % (0-10); Lymphocytes 40 % (21-51); MDiff Complete? YES; Monocytes 6 % (0-10); Neutrophil 38 % (42-75)
[2020-12-07 04:01] LABS: #Eosinphils 0.6 thou/uL (0.0-0.7); #Lymphocytes 2.5 thou/uL (1.20-3.40); #Monocytes 0.7 thou/uL (0.11-0.59); %Basophils 0.5 % (0.0-1.0); %Lymphocytes 32.2 % (21.0-51.0); %Monocytes 8.8 % (0.0-10.0); %Neutrophils 50.5 % (42.0-75.0); Hemoglobin 8.3 g/dL (12.0-16.0); Mean Corpuscular HGB CONC 32.1 g/dL (32.0-36.0); Mean Corpuscular Hemoglobin 28.4 pg (27.0-31.0); Mean Corpuscular Volume 88.4 fL (78.0-98.0); Platelet Count 302 thou/uL (130-400); RBC Distribution Width 14.6 % (11.5-14.5); Red Blood Cell (RBC) Count 2.91 mill/uL (4.20-5.40); White Blood Cell (WBC) Count 7.8 thou/uL (4.8-10.8)
[2020-12-07 04:25] LABS: Anion Gap 16 mmol/L (10-20); BUN (Urea Nitrogen) 29 mg/dL (7.0-18.7); Calc. Creatinine Clearance 98 mL/min (70-130); Calcium 8.8 mg/dL (7.8-10.44); Carbon Dioxide 20 mmol/L (22-29); Chloride 110 mmol/L (98-107); Glucose 99 mg/dL (70-105); Potassium 4.5 mmol/L (3.5-5.1); Sodium 141 mmol/L (136-145)
[2020-12-07] MEDS: Amlodipine 5 MG TAB PER TUBE SCH (09:23)
[2020-12-07] MEDS: Pantoprazole 40 MG GRANULES PACKET PER TUBE SCH ×2 (09:24→22:00)
[2020-12-07] MEDS: Vancomycin HCl 1.5 GM in Sodium Chloride 0.9% 250 ML 300 ML IVPB SCH (09:54)
[2020-12-08] MEDS: Fentanyl 100 MCG/2 ML VIAL SLOW IVP PRN ×2 (01:00→10:05)
[2020-12-08] MEDS: Labetalol HCl 100 MG/20 ML VIAL SLOW IVP PRN ×2 (02:38→06:26)
[2020-12-08 07:38] LABS: #Eosinphils 0.6 thou/uL (0.0-0.7); #Lymphocytes 1.9 thou/uL (1.20-3.40); #Monocytes 0.7 thou/uL (0.11-0.59); #Neutrophils 7.1 thou/uL (1.40-6.50); %Basophils 0.3 % (0.0-1.0); %Eosinophils 5.5 % (0.0-10.0); %Lymphocytes 18.2 % (21.0-51.0); %Monocytes 6.9 % (0.0-10.0); %Neutrophils 69.1 % (42.0-75.0); Hemoglobin 10.1 g/dL (12.0-16.0); Mean Corpuscular HGB CONC 32.7 g/dL (32.0-36.0); Mean Corpuscular Hemoglobin 28.3 pg (27.0-31.0); Mean Corpuscular Volume 86.4 fL (78.0-98.0); Mean Platelet Volume 9.1 fL (7.4-10.4); Platelet Count 349 thou/uL (130-400); RBC Distribution Width 14.3 % (11.5-14.5); Red Blood Cell (RBC) Count 3.56 mill/uL (4.20-5.40); White Blood Cell (WBC) Count 10.3 thou/uL (4.8-10.8)
[2020-12-08 07:57] LABS: Anion Gap 15 mmol/L (10-20); BUN (Urea Nitrogen) 30 mg/dL (7.0-18.7); Calc. Creatinine Clearance 103 mL/min (70-130); Calcium 9.6 mg/dL (7.8-10.44); Carbon Dioxide 23 mmol/L (22-29); Chloride 108 mmol/L (98-107); Glucose 112 mg/dL (70-105); Potassium 4.6 mmol/L (3.5-5.1); Sodium 141 mmol/L (136-145)
[2020-12-08] MEDS: Pantoprazole 40 MG GRANULES PACKET PER TUBE SCH ×2 (08:42→20:28)
[2020-12-08] MEDS: Scopolamine 1.5 mg/72 hour Patch TD SCH (08:42)
[2020-12-08] MEDS: Amlodipine 5 MG TAB PER TUBE SCH (08:42)
[2020-12-08] MEDS: fentaNYL 50 mcg/hour Patch TD SCH (11:10)
[2020-12-09 04:13] LABS: #Eosinphils 0.7 thou/uL (0.0-0.7); #Lymphocytes 2.2 thou/uL (1.20-3.40); #Monocytes 0.6 thou/uL (0.11-0.59); #Neutrophils 4.2 thou/uL (1.40-6.50); %Basophils 0.6 % (0.0-1.0); %Eosinophils 9.5 % (0.0-10.0); %Lymphocytes 28.3 % (21.0-51.0); %Monocytes 7.9 % (0.0-10.0); %Neutrophils 53.8 % (42.0-75.0); Hemoglobin 9.7 g/dL (12.0-16.0); Mean Corpuscular HGB CONC 32.4 g/dL (32.0-36.0); Mean Corpuscular Hemoglobin 28.5 pg (27.0-31.0); Mean Platelet Volume 9.7 fL (7.4-10.4); Platelet Count 328 thou/uL (130-400); RBC Distribution Width 14.6 % (11.5-14.5); Red Blood Cell (RBC) Count 3.42 mill/uL (4.20-5.40); White Blood Cell (WBC) Count 7.8 thou/uL (4.8-10.8)
[2020-12-09 04:17] LABS: Anion Gap 16 mmol/L (10-20); BUN (Urea Nitrogen) 27 mg/dL (7.0-18.7); Calc. Creatinine Clearance 100 mL/min (70-130); Calcium 9.1 mg/dL (7.8-10.44); Carbon Dioxide 22 mmol/L (22-29); Chloride 109 mmol/L (98-107); Glucose 116 mg/dL (70-105); Sodium 143 mmol/L (136-145)
[2020-12-09] MEDS: Pantoprazole 40 MG GRANULES PACKET PER TUBE SCH ×2 (09:32→20:33)
[2020-12-09] MEDS: Amlodipine 5 MG TAB PER TUBE SCH (09:32)
[2020-12-09] MEDS: Acetaminophen 650 MG/20.3 ML UDCUP PER TUBE PRN (20:33)
[2020-12-10] MEDS: Lorazepam 2 MG/ML VIAL SLOW IVP PRN ×2 (01:09→15:17)
[2020-12-10] MEDS: Amlodipine 5 MG TAB PER TUBE SCH (08:51)
[2020-12-10] MEDS: Pantoprazole 40 MG GRANULES PACKET PER TUBE SCH ×2 (08:52→21:18)
[2020-12-10] MEDS: hydrALAZINE 20 MG/ML VIAL SLOW IVP PRN (16:20)
[2020-12-10] MEDS: Morphine 4 MG/ML VIAL SLOW IVP PRN (17:02)
[2020-12-11 04:09] LABS: #Eosinphils 0.5 thou/uL (0.0-0.7); #Lymphocytes 2.4 thou/uL (1.20-3.40); #Monocytes 0.7 thou/uL (0.11-0.59); #Neutrophils 5.7 thou/uL (1.40-6.50); %Basophils 0.4 % (0.0-1.0); %Eosinophils 5.1 % (0.0-10.0); %Lymphocytes 25.5 % (21.0-51.0); %Monocytes 7.3 % (0.0-10.0); %Neutrophils 61.8 % (42.0-75.0); Hemoglobin 10.4 g/dL (12.0-16.0); Mean Corpuscular HGB CONC 32.4 g/dL (32.0-36.0); Mean Corpuscular Hemoglobin 28.8 pg (27.0-31.0); Mean Corpuscular Volume 88.8 fL (78.0-98.0); Mean Platelet Volume 9.4 fL (7.4-10.4); Platelet Count 327 thou/uL (130-400); RBC Distribution Width 14.9 % (11.5-14.5); Red Blood Cell (RBC) Count 3.61 mill/uL (4.20-5.40); White Blood Cell (WBC) Count 9.2 thou/uL (4.8-10.8)
[2020-12-11 04:31] LABS: Anion Gap 19 mmol/L (10-20); BUN (Urea Nitrogen) 35 mg/dL (7.0-18.7); Calc. Creatinine Clearance 81 mL/min (70-130); Calcium 9.8 mg/dL (7.8-10.44); Carbon Dioxide 22 mmol/L (22-29); Chloride 108 mmol/L (98-107); Glucose 120 mg/dL (70-105); Potassium 4.7 mmol/L (3.5-5.1); Sodium 144 mmol/L (136-145)
[2020-12-11] MEDS: Pantoprazole 40 MG GRANULES PACKET PER TUBE SCH ×2 (08:52→20:03)
[2020-12-11] MEDS: Amlodipine 5 MG TAB PER TUBE SCH (08:52)
[2020-12-11] MEDS: hydrALAZINE 20 MG/ML VIAL SLOW IVP PRN (08:53)
[2020-12-11] MEDS: Scopolamine 1.5 mg/72 hour Patch TD SCH (08:55)
[2020-12-11] MEDS: fentaNYL 50 mcg/hour Patch TD SCH (09:43)
[2020-12-12 04:14] LABS: #Basophils 0.1 thou/uL (0.0-0.2); #Eosinphils 0.5 thou/uL (0.0-0.7); #Lymphocytes 2.6 thou/uL (1.20-3.40); #Monocytes 0.6 thou/uL (0.11-0.59); #Neutrophils 4.4 thou/uL (1.40-6.50); %Basophils 0.7 % (0.0-1.0); %Eosinophils 6.1 % (0.0-10.0); %Lymphocytes 32.4 % (21.0-51.0); %Monocytes 6.9 % (0.0-10.0); %Neutrophils 53.9 % (42.0-75.0); Hemoglobin 10.2 g/dL (12.0-16.0); Mean Corpuscular HGB CONC 31.8 g/dL (32.0-36.0); Mean Corpuscular Hemoglobin 28.2 pg (27.0-31.0); Mean Corpuscular Volume 88.8 fL (78.0-98.0); Mean Platelet Volume 9.9 fL (7.4-10.4); Platelet Count 305 thou/uL (130-400); RBC Distribution Width 14.9 % (11.5-14.5); Red Blood Cell (RBC) Count 3.62 mill/uL (4.20-5.40); White Blood Cell (WBC) Count 8.1 thou/uL (4.8-10.8)
[2020-12-12 04:35] LABS: Anion Gap 18 mmol/L (10-20); BUN (Urea Nitrogen) 39 mg/dL (7.0-18.7); Calc. Creatinine Clearance 81 mL/min (70-130); Carbon Dioxide 24 mmol/L (22-29); Chloride 107 mmol/L (98-107); Potassium 4.8 mmol/L (3.5-5.1); Sodium 144 mmol/L (136-145)
[2020-12-12 04:36] LABS: Calcium 9.9 mg/dL (7.8-10.44); Glucose 98 mg/dL (70-105)
[2020-12-12] MEDS: Pantoprazole 40 MG GRANULES PACKET PER TUBE SCH ×2 (08:03→20:09)
[2020-12-12] MEDS: Amlodipine 5 MG TAB PER TUBE SCH (08:03)
[2020-12-13] MEDS: Amlodipine 5 MG TAB PER TUBE SCH (08:22)
[2020-12-13] MEDS: Pantoprazole 40 MG GRANULES PACKET PER TUBE SCH ×2 (08:22→20:25)
[2020-12-13 12:24] VITALS: BMI 29.7
[2020-12-14] MEDS: Labetalol HCl 100 MG/20 ML VIAL SLOW IVP PRN (01:14)
[2020-12-14] MEDS: Scopolamine 1.5 mg/72 hour Patch TD SCH (08:39)
[2020-12-14] MEDS: Amlodipine 5 MG TAB PER TUBE SCH (08:39)
[2020-12-14] MEDS: Pantoprazole 40 MG GRANULES PACKET PER TUBE SCH ×2 (08:39→21:33)
[2020-12-14] MEDS: fentaNYL 50 mcg/hour Patch TD SCH (12:01)
[2020-12-15] MEDS: Amlodipine 5 MG TAB PER TUBE SCH (08:37)
[2020-12-15] MEDS: Pantoprazole 40 MG GRANULES PACKET PER TUBE SCH ×2 (08:37→20:57)
[2020-12-16] MEDS: Acetaminophen 650 MG/20.3 ML UDCUP PER TUBE PRN ×2 (05:35→18:09)
[2020-12-16] MEDS: Amlodipine 5 MG TAB PER TUBE SCH (10:16)
[2020-12-16] MEDS: Pantoprazole 40 MG GRANULES PACKET PER TUBE SCH (10:16)
[2020-12-16] MEDS: hydrALAZINE 20 MG/ML VIAL SLOW IVP PRN (17:36)
[2020-12-16 17:59] VITALS: BP 152/105; TEMP 99.8
== END 2020-12-16 19:02 | disposition hospice, inpatient (51) | DRG 3 ==
LOC: ERS 11:17 → ERHOLD 12:01 → SURG A 13:50 → CCU 21:55 → IMCU/EMU 12-08 18:14 → T4-B 12-14 16:02
PROVIDERS: ADMIT Neurological Surgery; ATTEND Internal Medicine
PROC: 5A1955Z Respiratory Ventilation, Greater than 96 Consecutive Hours (ICD-10-PCS; principal; 2020-11-15)
PROC: 00C70ZZ Extirpation of Matter from Cerebral Hemisphere, Open Approach (ICD-10-PCS; 2020-11-15)
PROC: 0D9670Z Drainage of Stomach with Drainage Device, Via Natural or Artificial Opening (ICD-10-PCS; 2020-11-15)
PROC: 00N00ZZ Release Brain, Open Approach (ICD-10-PCS; 2020-11-15)
PROC: 0B113F4 Bypass Trachea to Cutaneous with Tracheostomy Device, Percutaneous Approach (ICD-10-PCS; 2020-11-24)
PROC: 0DH63UZ Insertion of Feeding Device into Stomach, Percutaneous Approach (ICD-10-PCS; 2020-11-24)
DX: I61.0 Nontraumatic intracerebral hemorrhage in hemisphere, subcortical (principal); G93.5 Compression of brain; G93.41 Metabolic encephalopathy; J96.01 Acute respiratory failure with hypoxia; J69.0 Pneumonitis due to inhalation of food and vomit; N17.9 Acute kidney failure, unspecified; E87.0 Hyperosmolality and hypernatremia; G93.1 Anoxic brain damage, not elsewhere classified; I61.5 Nontraumatic intracerebral hemorrhage, intraventricular; Z20.822 Contact with and (suspected) exposure to COVID-19; Z51.5 Encounter for palliative care; Z66 Do not resuscitate; Z78.1 Physical restraint status; G35 Multiple sclerosis; F41.9 Anxiety disorder, unspecified; F32.A Depression, unspecified; F17.210 Nicotine dependence, cigarettes, uncomplicated; R40.20 Unspecified coma; F15.10 Other stimulant abuse, uncomplicated; E66.9 Obesity, unspecified; G93.2 Benign intracranial hypertension; I12.9 Hypertensive chronic kidney disease with stage 1 through stage 4 chronic kidney disease, or unspecified chronic kidney disease; N18.30 Chronic kidney disease, stage 3 unspecified; I16.0 Hypertensive urgency; Z86.73 Personal history of transient ischemic attack (TIA), and cerebral infarction without residual deficits; Z98.51 Tubal ligation status; Z68.29 Body mass index [BMI] 29.0-29.9, adult; Z79.899 Other long term (current) drug therapy; I95.9 Hypotension, unspecified
CPT/HCPCS: 31624; 36415; 36416; 36600; 70450; 70496; 71045; 80048; 80053; 80202; 81001; 82805; 83605; 83735; 84100; 85025; 87040; 87070; 87077; 87086; 87149; 87205; 93970; 94002; 94003; 94640; 96374; 96375; C1713; C9113; J0360; J0690; J0696; J1100; J1165; J2060; J2150; J2185; J2250; J2270; J2543; J2704; J3010; J3370; J3480; J3490; J7030; J7042; J7050; J7070; J7120; J7620; Q9967; S0028

== ENCOUNTER 2020-12-16 19:35 | Inpatient (IN) | payer OTHER ==
[2020-12-16] MEDS ORDERED: Milk Of Magnesia 30 ML UDCUP PER TUBE PRN (20:04)
[2020-12-16] MEDS ORDERED: Acetaminophen 650 MG Suppository PR PRN (20:23)
[2020-12-16] MEDS ORDERED: Morphine 20 MG/ML Oral Solution (ROXANOL) SL PRN (20:25)
[2020-12-16] MEDS ORDERED: Haloperidol Lactate 5 MG/ML VIAL SLOW IVP PRN (20:29)
[2020-12-16] MEDS ORDERED: Ondansetron PF 4 MG/2 ML Vial IVP PRN (20:31)
[2020-12-16] MEDS ORDERED: Promethazine HCl 25 MG SUPP PR PRN (20:33)
[2020-12-16] MEDS ORDERED: Loperamide HCl 2 MG CAP PO PRN (20:34)
[2020-12-16] MEDS ORDERED: Hyoscyamine Sulfate SL 0.125 mg Tablet SL PRN (20:35)
[2020-12-16] MEDS ORDERED: Scopolamine 1.5 mg/72 hour Patch TOP PRN (20:36)
[2020-12-16] MEDS ORDERED: Nystatin Cream 15 GM TUBE TOP PRN (20:38)
[2020-12-16] MEDS ORDERED: Lanolin Ointment 7 GM TUBE TOP PRN (20:43)
[2020-12-16 22:56] VITALS: BMI 30.4
[2020-12-17] MEDS: Morphine 4 MG/ML VIAL SLOW IVP PRN ×2 (10:18→15:05)
[2020-12-17] MEDS ORDERED: Promethazine HCl 6.25 MG/5 ML Syrup PER TUBE PRN (10:24)
[2020-12-17] MEDS: Lorazepam 2 MG/ML VIAL SLOW IVP PRN ×4 (12:49→23:53)
[2020-12-18] MEDS: Lorazepam 2 MG/ML VIAL SLOW IVP PRN ×2 (04:12→14:31)
[2020-12-18] MEDS: Acetaminophen 650 MG/20.3 ML UDCUP PER TUBE PRN ×2 (14:26→21:30)
[2020-12-19] MEDS: Lorazepam 2 MG/ML VIAL SLOW IVP PRN ×2 (01:53→11:42)
[2020-12-19] MEDS: Morphine 4 MG/ML VIAL SLOW IVP PRN ×2 (08:13→21:23)
[2020-12-19] MEDS: Acetaminophen 650 MG/20.3 ML UDCUP PER TUBE PRN ×2 (16:18→21:22)
[2020-12-20] MEDS: Acetaminophen 650 MG/20.3 ML UDCUP PER TUBE PRN ×2 (09:19→12:47)
[2020-12-20] MEDS: Lorazepam 2 MG/ML VIAL SLOW IVP PRN ×2 (12:38→21:12)
[2020-12-20] MEDS: Morphine 4 MG/ML VIAL SLOW IVP PRN ×2 (12:39→15:14)
[2020-12-21] MEDS: Morphine 4 MG/ML VIAL SLOW IVP PRN ×3 (07:57→16:34)
[2020-12-21] MEDS: Acetaminophen 650 MG/20.3 ML UDCUP PER TUBE PRN ×2 (09:08→21:20)
[2020-12-21] MEDS: Lorazepam 2 MG/ML VIAL SLOW IVP PRN ×2 (09:12→13:35)
[2020-12-22] MEDS: Acetaminophen 650 MG/20.3 ML UDCUP PER TUBE PRN ×4 (00:16→21:43)
[2020-12-22] MEDS: Lorazepam 2 MG/ML VIAL SLOW IVP PRN ×5 (01:54→21:42)
[2020-12-22] MEDS: Morphine 4 MG/ML VIAL SLOW IVP PRN ×5 (06:14→21:42)
[2020-12-22] MEDS ORDERED: Scopolamine 1.5 mg/72 hour Patch TOP PRN (10:56)
[2020-12-22] MEDS ORDERED: Scopolamine 1.5 mg/72 hour Patch TOP SCH (11:00)
[2020-12-23] MEDS: Morphine 4 MG/ML VIAL SLOW IVP PRN ×4 (01:51→17:36)
[2020-12-23] MEDS: Lorazepam 2 MG/ML VIAL SLOW IVP PRN ×3 (01:52→12:21)
[2020-12-23] MEDS: Acetaminophen 650 MG/20.3 ML UDCUP PER TUBE PRN ×2 (12:22→17:36)
[2020-12-24] MEDS: Lorazepam 2 MG/ML VIAL SLOW IVP PRN ×5 (00:05→19:18)
[2020-12-24] MEDS: Acetaminophen 650 MG/20.3 ML UDCUP PER TUBE PRN ×4 (00:10→21:04)
[2020-12-24] MEDS: Morphine 4 MG/ML VIAL SLOW IVP PRN ×4 (02:22→19:17)
[2020-12-25] MEDS: Acetaminophen 650 MG/20.3 ML UDCUP PER TUBE PRN ×3 (09:43→22:01)
[2020-12-25] MEDS: Morphine 4 MG/ML VIAL SLOW IVP PRN ×3 (09:46→19:45)
[2020-12-25] MEDS: Lorazepam 2 MG/ML VIAL SLOW IVP PRN ×3 (09:47→19:49)
[2020-12-26] MEDS: Morphine 4 MG/ML VIAL SLOW IVP PRN ×4 (10:15→21:33)
[2020-12-26] MEDS: Acetaminophen 650 MG/20.3 ML UDCUP PER TUBE PRN ×2 (10:15→18:00)
[2020-12-26] MEDS: Lorazepam 2 MG/ML VIAL SLOW IVP PRN ×3 (10:16→21:32)
[2020-12-27] MEDS: Lorazepam 2 MG/ML VIAL SLOW IVP PRN ×3 (09:56→20:45)
[2020-12-27] MEDS: Morphine 4 MG/ML VIAL SLOW IVP PRN ×5 (10:01→20:43)
[2020-12-27] MEDS: Acetaminophen 650 MG/20.3 ML UDCUP PER TUBE PRN (10:01)
[2020-12-27 10:02] VITALS: TEMP 100.5
[2020-12-27 23:39] VITALS: BP 81/60
[2020-12-28] MEDS: Morphine 4 MG/ML VIAL SLOW IVP PRN (00:46)
[2020-12-28] MEDS: Lorazepam 2 MG/ML VIAL SLOW IVP PRN (00:46)
== END 2020-12-28 02:40 | disposition expired | DRG 951 ==
LOC: T4-B 19:35
PROVIDERS: ADMIT Family Medicine; ATTEND Family Medicine
DX: Z51.5 Encounter for palliative care (principal); I10 Essential (primary) hypertension; L73.8 Other specified follicular disorders; G35 Multiple sclerosis; Z79.899 Other long term (current) drug therapy; Z98.51 Tubal ligation status; Z87.891 Personal history of nicotine dependence; Z93.0 Tracheostomy status; Z93.1 Gastrostomy status; Z87.01 Personal history of pneumonia (recurrent)
CPT/HCPCS: 94640; J2060; J2270